=== PATIENT | female | born 1955 | race Caucasian/White ===

== ENCOUNTER → 2017-03-20 14:04 | Outpatient (CLI) | payer BC, SELFPAY ==
--- NOTE | 2017-03-20 14:14 | CT_ITS ---
STUDY: CT ABDOMEN AND PELVIS WITH AND WITHOUT CONTRAST REASON FOR EXAM: Female, 61 years old. Renal colic. Left flank pain. Hematuria. RADIATION DOSAGE (If Supplied By Facility): CTDIvol = ( 7.13 ) mGy, DLP = ( 788.06 ) mGycm TECHNIQUE: Transaxial images were obtained from the dome of the diaphragm to the symphysis pubis without oral contrast. 100 ml of Isovue 300 contrast was administered. Sagittal and coronal images were reconstructed. Individualized dose optimization techniques were used for this CT. COMPARISON: CT of the abdomen and pelvis, January 19, 2015. FINDINGS: The visualized lung bases are unremarkable. The visualized portions of the heart are within normal limits. Normal liver. There is non-visualization of the gallbladder, which may be secondary to either contraction or a prior cholecystectomy. Normal spleen. Normal pancreas. Normal bilateral adrenal glands. There is an extrarenal pelvis on the right. The right kidney is otherwise unremarkable. Normal left kidney. Normal bilateral ureters. Normal visualized stomach. Normal small intestine. Colon is mildly redundant but otherwise unremarkable. There is non-visualization of the appendix. Normal abdominal aorta. Normal inferior vena cava. Normal retroperitoneum. The urinary bladder is collapsed. Normal uterus and ovaries. There is no pelvic lymphadenopathy. There are prominent vessels in the broad ligament suggesting pelvic congestion. No free air or free fluid is seen within the peritoneal cavity. Normal abdominal wall. Normal osseous structures. CT/CT Abd/Pelvis W/WO Contrast IMPRESSION: 1. Question pelvic congestion. 2. No evidence of renal, ureteral or urinary bladder abnormality. Electronically Signed: Harshil Arzate DO at 15:09 EST Tel [phone], Service support ,
== END ==
PROVIDERS: Family Provider Internal Medicine; PCP Internal Medicine; Visit Provider Family Medicine
DX: N23 Unspecified renal colic (principal)
CPT/HCPCS: 74178; Q9967

== ENCOUNTER 2020-04-30 09:49 | Outpatient (RCR) | payer BC, SELFPAY ==
[2020-04-30] MEDS: COVID-19 VACC, MRNA(PFIZER)/PF 30 MCG/0.3 ML SYRINGE IM (15:06)
[2020-05-21] MEDS: COVID-19 VACC, MRNA(PFIZER)/PF 30 MCG/0.3 ML SYRINGE IM (14:44)
== END 2020-04-30 23:59 ==
LOC: IMMUN 09:49
PROVIDERS: PCP Family Medicine; Referring Provider Family Medicine; Visit Provider Family Medicine
DX: Z23 Encounter for immunization (principal)
CPT/HCPCS: 0001A; 0002A; 91300

== ENCOUNTER 2020-11-06 16:53 | Emergency (ER) | payer BC, SELFPAY ==
[2020-11-06 16:55] VITALS: BP 153/70; PULSE 75; RESP 17; TEMP 36.9; O2SAT 100
--- NOTE | 2020-11-06 17:26 | CT_ITS ---
STUDY: CT ABDOMEN AND PELVIS WITH CONTRAST REASON FOR EXAM: Female, 65 years old. Abdominal pain for 5 days, recent trauma to the periumbilical region RADIATION DOSAGE (If Supplied By Facility): CTDIvol = ( 11.26 ) mGy, DLP = ( 460.97 ) mGycm TECHNIQUE: CT images were obtained from the dome of the diaphragm to the symphysis pubis without oral contrast. IV 100mL Isovue-300 was administered. Sagittal and coronal images were reconstructed. Individualized dose optimization techniques were used for this CT. COMPARISON: 19 January 2015, 20 March 2017 FINDINGS: The visualized lung bases are unremarkable. The visualized portions of the heart are within normal limits. Normal liver. Gallbladder surgically removed. There is no biliary dilation.. Normal spleen. Normal pancreas. Normal bilateral adrenal glands. Normal right kidney. Normal left kidney. There is no intestinal obstruction. Appendix is resected. Normal abdominal aorta. Normal inferior vena cava. There is stable mild infiltration of the central intestinal mesentery, similar to 2015. 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 No further imaging is needed. Normal urinary bladder. There are enlarged veins bilaterally in the adnexa with early opacification. Appearance is uncommon in a postmenopausal patient, possibility of AV fistula is present. Normal abdominal wall. Normal osseous structures. Appearance is stable since prior. CT/Abdomen/Pelvis W IV Cont ONLY IMPRESSION: 1. No acute injury. 2. No acute disease. 3. 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 Electronically Signed: Chris Warner MD at 19:19 EDT Tel , Service support ,
--- NOTE | 2020-11-06 17:27 | ED.VIS.GI ---
HPI HPI - GI History of Present Illness Chief Complaint: Abd Pain Narrative Narrative: Patient presents from her primary care provider's office because of abdominal pain that she has had since Monday. She states that she was unloading some large concrete pavers, and one slid off the tailgate of a truck into her abdomen. She denies any nausea or vomiting. No fevers or chills. No dysuria or hematuria. No problems with bowel movements. She states that pain is worse with movement. Her abdomen feels swollen in the periumbilical area all across from where the plate driller hit her. She does not take any blood thinners, she does not take any medications whatsoever. She presents because of the continued pain. [facility] Home Medications NK 11/06/20 [History Last Taken Unknown] Allergy/AdvReac Type Severity Reaction Status Date / Time codeine AdvReac Other Verified 11/06/20 16:54 Social History Smoking Status: Never smoker ROS ROS ED ROS Narrative Constitutional: No fever, no chills. HEENT: No sore throat. No neck pain. No loss of vision. No rhinorrhea. Cardiovascular: No chest pain. No palpitations. No pedal edema. Respiratory: No cough, no shortness of breath. Abdominal: Positive periumbilical abdominal pain across abdomen. No nausea. No vomiting. Genitourinary: No dysuria. No hematuria. Musculoskeletal: No myalgias. No arthralgias. Neurologic: No headaches. No dizziness. No lightheadedness. Skin: No rash. No change in color. Psychiatric: No depression. No anxiety. EXAM Physical Exam Narrative Exam Narrative: Afebrile. Vital signs noted. HEENT: Normocephalic. Atraumatic. PERRL, EOMI. Neck soft and supple. No point tenderness or step off. Cardiovascular: Regular rate and rhythm. No murmurs, rubs, or gallops appreciated. Respiratory: No tachypnea. Lungs clear to auscultation bilaterally. Gastrointestinal: Abdomen soft, with mild tenderness to palpation at the level of T9 approximately, with normoactive bowel sounds. No rebound or guarding. Positive pain with movement and have to sit up. Neurological: Awake. Alert. Nonfocal, nonlateralizing. Skin: No rash. Normal color. No pallor. No noted ecchymosis on abdomen. Musculoskeletal: No pedal edema. Full range of motion extremities. Const Vital Signs: 11/06/20 16:55 Temperature 98.4 F Temperature Source Temporal Pulse Rate 75 Respiratory Rate 17 Blood Pressure 153/70 H Blood Pressure Mean 97 Pulse Ox 100 Oxygen Delivery Method Room Air MDM MDM MDM Narrative Medical decision making narrative: Patient denies any analgesics. I will obtain a CBC and a CMP to check her kidney function prior to obtaining an abdomen and pelvis CT with IV contrast to look for abdominal wall hematoma. Her laboratory work is grossly unremarkable, normal white count. Normal LFTs. CT of the abdomen and pelvis shows no acute process, no abdominal wall hematoma. At this point in time, treatment will be symptomatic with [id number] analgesics. I feel she be discharged safely home with follow-up. Return instructions to the emergency department were reviewed. Disposition is discharged home in stable condition. Lab Data Attestation: I reviewed the patient's lab results. Labs: Laboratory Results - last 24 hr 11/06/20 11/06/20 17:33 17:33 WBC 7.5 RBC 4.97 Hgb 14.7 Hct 46.0 MCV 92.6 MCH 29.6 MCHC 32.0 RDW Std Deviation 44.7 H RDW Coeff of Yesi 13.2 Plt Count 259 MPV 9.0 Immature Gran % (Auto) 0.300 Neut % (Auto) 64.2 Lymph % (Auto) 26.8 [place] % (Auto) 7.0 Eos % (Auto) 1.3 Baso % (Auto) 0.4 Absolute Neuts (auto) 4.8 Absolute Lymphs (auto) 2.02 Nucleated RBC % 0 Sodium 140 Potassium 3.6 Chloride 106 Carbon Dioxide 28.0 Anion Gap 6 BUN 16 Creatinine 0.97 Estim Creat Clear Calc 56.11 Est GFR (MDRD) Af Amer 75 Est GFR (MDRD) Non-Af 62 BUN/Creatinine Ratio 16.5 Glucose 106 Calcium 9.7 Total Bilirubin 0.30 AST 19 ALT 40 Alkaline Phosphatase 107 Total Protein 9.0 H Albumin 4.3 Globulin 4.7 H Albumin/Globulin Ratio 0.9 Radiography Diagnostic Testing: Radiology Impression Abdomen/Pelvis CT 11/06/20 17:26 IMPRESSION: 1. No acute injury. 2. No acute disease. 3. 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 Electronically Signed: Chris Warner MD at 19:19 EDT Tel , Service support , Discharge Plan Triage Chief Complaint: Abd Pain ED Provider: Krystian Solomon Dx/Rx/DC Orders Clinical Impression: Abdominal wall contusion Instructions: ED Soft Tissue Contusion, ED Abdominal Pain Unkn Cause Male... Prescriptions: No Action NK RF: 0 Primary Care Provider: Coy Sorto Referrals: Coy Sorto MD [Primary Care Provider] - 11/10/20 Disposition Disposition: Home, Self Care
[2020-11-06 17:46] LABS: Absolute Lymphocyte Count 2.02 X10^3/uL (0.83-4.51); Absolute Neutrophil Count 4.8 X10^3/uL (2.0-7.7); Basophil# 0.03 X10^3/uL; Basophil% 0.4 % (0-1); Eosinophils% 1.3 % (0-5); Hemoglobin 14.7 g/dL (12.0-15.0); Lymphocyte # 2.02 X10^3/ul (0.83-4.51); Lymphocyte % 26.8 % (19-41); Mean Corpuscular Hgb 29.6 pg (27.0-32.0); Mean Corpuscular Volume 92.6 fL (81-99); Monocyte# 0.53 X10^3/uL; NRBC Flagged by Analyzer 0 % (0-5); Neutrophil # 4.84 X10^3/uL (2.7-7.7); Neutrophil % 64.2 % (47-70); Platelet Count 259 K/mm3 (150-450); RBC Distribution Width CV 13.2 % (11.6-14.6); RBC Distribution Width SD 44.7 fl (35.1-43.9); Red Blood Count 4.97 M/mm3 (4.2-5.4); White Blood Count 7.5 K/mm3 (4.4-11.0)
[2020-11-06 18:14] LABS: Albumin, Serum 4.3 g/dL (3.2-5.0); BUN 16 mg/dL (7-18); BUN/Creat Ratio 16.5 RATIO (10-20); Creatinine, Serum 0.97 mg/dL (0.55-1.02); EST Glomerular Filtration Rate 62 mL/min (>60); Est Glom Filt Rate - Afr Amer 75 mL/min (>60); Estimated Creatinine Clearance 56.11 ml/min; Glucose 106 mg/dL (74-106)
[2020-11-06 18:15] LABS: ALB/GLOB Ratio 0.9 RATIO (0.9-2.4); AST(SGOT) 19 U/L (15-37); Alanine Aminotransfer ALT/SGPT 40 U/L (13-56); Alkaline Phosphatase 107 U/L (45-117); Anion Gap 6 (5-15); Calcium,Total 9.7 mg/dL (8.5-10.1); Chloride 106 mmol/L (98-107); Globulin 4.7 g/dL (2.2-4.2); Potassium 3.6 mmol/L (3.5-5.1); Sodium Level 140 mmol/L (136-145)
[2020-11-06 20:09] VITALS: BP 140/68; PULSE 71; RESP 18; O2SAT 99
--- NOTE | 2020-11-06 20:09 | ED.RN ---
THIS NURSE REVIEWED D/C INSTRUCTIONS WITH PT. PT VERBALIZED UNDERSTANDING OF INSTRUCTIONS. IV D/C. IV CATHETER INTACT. PT TOLERATED WELL. PT DENIES FURTHER NEEDS OR QUESTIONS AT THIS TIME. PT AMBULATES FROM ROOM ON OWN WITHOUT ASSISTANCE FROM STAFF
== END 2020-11-06 20:15 | disposition home or self-care (01) ==
PROVIDERS: Emergency Provider Emergency Medicine; PCP Family Medicine
DX: S30.1XXA Contusion of abdominal wall, initial encounter (principal); W20.8XXA Other cause of strike by thrown, projected or falling object, initial encounter; Y93.9 Activity, unspecified; Y92.9 Unspecified place or not applicable; Y99.9 Unspecified external cause status
CPT/HCPCS: 74177; 80053; 85025; 99283; Q9967; A4216

== ENCOUNTER → 2020-12-28 11:04 | Outpatient (CLI) | payer BC, SELFPAY ==
--- NOTE | 2020-12-28 11:08 | US_ITS ---
STUDY: ULTRASOUND OF THE FEMALE PELVIS - COMPLETE REASON FOR EXAM: Female, 65 years old. PELVIC CONGESTION LMP: Patient is postmenopausal. TECHNIQUE: Transabdominal and Transvaginal TECHNICAL QUALITY: Adequate. COMPARISON: Comparison is made with prior CT scan of the abdomen and pelvis dated 11/06/2020. FINDINGS: The uterus is anteverted and is in a midline position. The uterus measures 4.8 cm x 4.1 cm x 1.8 cm. Normal uterine cervix. The endometrium measures 2 mm in thickness, and is hyperechoic. There is no demonstrated endometrial mass. There is no demonstrated myometrial mass. I.U.D. - The patient does not have an I.U.D. The right ovary is non-visualized. The left ovary is non-visualized. There is no fluid in the cul-de-sac. The pre void volume of the bladder was 328 ml. Dilated venous vessels are seen in the pelvis more prominent on the left side. US/Pelvic (Non ) IMPRESSION: Dilated venous vessels are seen in the pelvis more prominent on the left side. Electronically Signed: Jaspreet Cordero MD at 13:02 EST , Service support ,
--- NOTE | 2020-12-28 11:09 | US_ITS ---
STUDY: ULTRASOUND OF THE FEMALE PELVIS - COMPLETE REASON FOR EXAM: Female, 65 years old. PELVIC CONGESTION LMP: Patient is postmenopausal. TECHNIQUE: Transabdominal and Transvaginal TECHNICAL QUALITY: Adequate. COMPARISON: Comparison is made with prior CT scan of the abdomen and pelvis dated 11/06/2020. FINDINGS: The uterus is anteverted and is in a midline position. The uterus measures 4.8 cm x 4.1 cm x 1.8 cm. Normal uterine cervix. The endometrium measures 2 mm in thickness, and is hyperechoic. There is no demonstrated endometrial mass. There is no demonstrated myometrial mass. I.U.D. - The patient does not have an I.U.D. The right ovary is non-visualized. The left ovary is non-visualized. There is no fluid in the cul-de-sac. The pre void volume of the bladder was 328 ml. Dilated venous vessels are seen in the pelvis more prominent on the left side. US/Transvaginal Non- IMPRESSION: Dilated venous vessels are seen in the pelvis more prominent on the left side. Electronically Signed: Jaspreet Cordero MD at 13:02 EST , Service support ,
== END ==
PROVIDERS: PCP Family Medicine; Referring Provider Family Medicine; Visit Provider Family Medicine
DX: N94.89 Other specified conditions associated with female genital organs and menstrual cycle (principal); I99.9 Unspecified disorder of circulatory system
CPT/HCPCS: 76830; 76856

== ENCOUNTER 2021-04-07 13:06 | Outpatient (CLI) | payer BC, SELFPAY ==
--- NOTE | 2021-04-07 13:08 | BI_ITS ---
MAMMOGRAPHY - BILATERAL SCREENING REASON FOR EXAM: Female, 66 years old. Routine annual screening examination. PERTINENT HISTORY: Non-contributory. TECHNIQUE: Digital bilateral breast patel (3D mammographic acquisition) in the CC and MLO projections. 2-D mediolateral oblique (MLO) and craniocaudad (CC) views of both breasts were obtained. CAD: Full Field Digital Mammography with Computer Added Detection was performed. COMPARISON: Comparison is made with prior abdomen examination dated 04/12/2019. FINDINGS: Breast Composition: There are scattered areas of fibroglandular density. There are no dominant masses or suspicious calcifications. Stable 6 mm x 4 mm well-defined nodule in the inferior medial portion of the left breast. No other significant abnormalities are identified. There has been no significant change since the prior study. BI/SCRN MAMM (CAD)W/PATEL BILAT IMPRESSION: Stable bilateral screening mammogram. Yearly follow-up mammogram recommended. (A) ASSESSMENT CATEGORY: BIRADS Category 2: Benign. A letter regarding these results will be sent to the patient by the facility within 30 days. Approximately 10% of breast cancers are not detected by mammography. A normal mammogram should not delay biopsy of a clinically suspicious abnormality. [id number] Electronically Signed: Jaspreet Cordero MD at 14:33 EST ,
== END 2021-04-07 23:59 | disposition home or self-care (01) ==
LOC: OPBI 13:06
PROVIDERS: PCP Family Medicine; Referring Provider Family Medicine; Visit Provider Family Medicine
DX: Z12.31 Encounter for screening mammogram for malignant neoplasm of breast (principal)
CPT/HCPCS: 77063; 77067

== ENCOUNTER 2021-05-17 13:02 | Outpatient (CLI) | payer BC, SELFPAY ==
--- NOTE | 2021-05-17 13:05 | US_ITS ---
HISTORY: pelvic varices EXAMINATION: US Transvaginal Non-OB TECHNIQUE: Transvaginal pelvic ultrasound was performed. Grayscale, spectral waveform, and color flow Doppler evaluation of the adnexa. COMPARISON: CT abdomen and pelvis 11/06/20 FINDINGS: UTERUS: anteverted. The uterus measures 5.6 x 4.1 x 2.0 cm. There is no uterine mass. The endometrial stripe measures 3 mm in AP diameter which is within normal limits. RIGHT OVARY: Not visualized. LEFT OVARY: Not visualized. FREE FLUID: None. US/Transvaginal Non- IMPRESSION: Unremarkable pelvic ultrasound. No demonstration of increased pelvic vascularity. at 1555 Reported and signed by: Tj Dickerson MD Electronically Signed: Tj Dickerson MD at 15:53 EDT ,
--- NOTE | 2021-05-17 13:05 | US_ITS ---
HISTORY: pelvic varices EXAMINATION: US Transvaginal Non-OB TECHNIQUE: Transvaginal pelvic ultrasound was performed. Grayscale, spectral waveform, and color flow Doppler evaluation of the adnexa. COMPARISON: CT abdomen and pelvis 11/06/20 FINDINGS: UTERUS: anteverted. The uterus measures 5.6 x 4.1 x 2.0 cm. There is no uterine mass. The endometrial stripe measures 3 mm in AP diameter which is within normal limits. RIGHT OVARY: Not visualized. LEFT OVARY: Not visualized. FREE FLUID: None. US/Pelvic (Non ) IMPRESSION: Unremarkable pelvic ultrasound. No demonstration of increased pelvic vascularity. at 1555 Reported and signed by: Tj Dickerson MD Electronically Signed: Tj Dickerson MD at 15:53 EDT ,
== END 2021-05-17 23:59 | disposition home or self-care (01) ==
LOC: US 13:03
PROVIDERS: PCP Family Medicine; Referring Provider Obstetrics & Gynecology; Visit Provider Obstetrics & Gynecology
DX: I86.2 Pelvic varices (principal)
CPT/HCPCS: 76830; 76856

== ENCOUNTER 2021-05-17 23:12 | Emergency (ER) | payer BC, SELFPAY ==
[2021-05-17 23:13] VITALS: BP 179/89; PULSE 101; RESP 20; TEMP 35.9; O2SAT 96; BMI 21.6
--- NOTE | 2021-05-17 23:35 | EKG12_ITS ---
Test Reason : DIZZINESS Blood Pressure : / mmHG Vent. Rate : 098 BPM Atrial Rate : 098 BPM P-R Int : 094 ms QRS Dur : 080 ms QT Int : 358 ms P-R-T Axes : 062 012 041 degrees QTc Int : 457 ms Sinus rhythm with short PA Otherwise normal ECG Confirmed by FATUMA MUÑOZ, ANAID ([id number]), communications editor CORAL SAUCEDA ([id number]) on 05/18/2021 10:41:21 AM Referred By: ALEJANDRO Confirmed By:ANAID BURRIS MD
--- NOTE | 2021-05-17 23:38 | EX.ED.DYSGE1 ---
HPI History of Present Illness Chief Complaint: Dizziness Informant: patient Onset/Context/Timing Onset: Today Context: Sudden Onset Current Severity: Moderate Maximum Severity: Moderate Narrative Narrative: Patient presents via EMS secondary to feeling weak and dizzy. She states she was lying on the couch when she developed racing heart and nausea. She felt very dizzy. She was able to walk to her bedroom to lie down but when moving from the seated to lying position became quite dizzy. She states she had racing heart sensation last evening for short time but it resolved. Symptoms recurred today. She has a mild left-sided headache. She denies medical problems or any chronic medications. PFSH PFSH Medical History no medical history no medical history Home Medications albuterol sulfate 2 puff INHALATION Q4H PRN 05/17/21 [History Last Taken Unknown] meclizine [Antivert] 25 mg PO TID PRN #20 tab 05/18/21 [Rx Last Taken Unknown] potassium chloride 20 meq PO BID #8 tab 05/18/21 [Rx Last Taken Unknown] Allergy/AdvReac Type Severity Reaction Status Date / Time codeine AdvReac Other Verified 05/17/21 23:18 Family History Father CVA (cerebral vascular accident) Diabetes Hypertension Surgical History H/O lithotripsy History of appendectomy History of hand surgery Hx of cholecystectomy Social History Smoking Status: Never smoker alcohol intake: current details: social substance use type: does not use caffeine: Yes what type of physical activity do you participate in: walking seatbelt use: always do you feel safe at home: Yes additional social history: - [place] ([place]) ROS ROS ED Constitutional Constitutional ED: Denies chills or fever(s) Eyes Eyes: Denies change in vision ENT ENT ED: Denies rhinorrhea or sore throat Cardiovascular Cardiovascular: Reports racing heartbeat Respiratory/Chest Respiratory/Chest: Denies dyspnea Gastrointestinal Gastrointestinal: Reports nausea; Denies abdominal pain or diarrhea Musculoskeletal Musculoskeletal: Denies back pain or neck pain Neurologic Neurologic: Reports headache(s) and weakness Allergic/Immunologic Allergic/Immunologic ED: Denies urticaria EXAM Physical Exam Const Vital Signs: 05/17/21 23:13 05/18/21 00:13 05/18/21 01:13 Temperature 96.6 F L Temperature Source Temporal Pulse Rate 101 H 107 H 101 H Respiratory Rate 20 H 24 H 18 Blood Pressure 179/89 H 125/65 H 114/68 Blood Pressure Mean 119 85 83 Pulse Ox 96 98 Oxygen Delivery Method Room Air Room Air 05/18/21 02:13 Temperature Temperature Source Pulse Rate 94 Respiratory Rate 18 Blood Pressure 125/71 H Blood Pressure Mean 89 Pulse Ox 97 Oxygen Delivery Method Room Air Positive well nourished and well developed General Appearance ED: well developed HEENT Reports TM's clear and moist mucous membranes Tympanic Membrane ED: Yes TM's clear Eyes PERRL Neck supple Chest Wall inspection of chest normal and palpation of chest normal Resp normal respiratory effort and clear to auscultation bilaterally Cardio regular rate and regular rhythm GI non-tender Auscultation: hypoactive bowel sounds Palpation: soft Extremity normal to inspection Neuro oriented x3 Neuro Narrative: Resting in a darkened room with eyes closed. States she feels weak all over. Is able to hold both arms up off the bed. Able to hold both legs off the bed. Sensorium / Orientation: alert Psych mental status grossly normal Skin no rashes or lesions noted MDM MDM MDM Narrative Medical decision making narrative: Patient was initially given Zofran followed by dose of Phenergan for continued nausea. She was sent for head CT to rule out bleed. Lab work obtained. EKG ordered. Lab Data Attestation: I reviewed the patient's lab results. Labs: Laboratory Results - last 24 hr 05/18/21 05/18/21 00:01 00:01 WBC 10.6 RBC 4.44 Hgb 13.7 Hct 40.4 MCV 91.0 MCH 30.9 MCHC 33.9 RDW Std Deviation 42.5 RDW Coeff of Yesi 12.9 Plt Count 278 MPV 9.7 Immature Gran % (Auto) 0.900 Neut % (Auto) 53.1 Lymph % (Auto) 38.5 [place] % (Auto) 5.8 Eos % (Auto) 1.1 Baso % (Auto) 0.6 Absolute Neuts (auto) 5.6 Absolute Lymphs (auto) 4.10 Nucleated RBC % 0 Sodium 141 Potassium 2.9 L Chloride 106 Carbon Dioxide 25.0 Anion Gap 10 BUN 15 Creatinine 1.07 H Estim Creat Clear Calc 53.58 Est GFR (MDRD) Af Amer 66 Est GFR (MDRD) Non-Af 55 L BUN/Creatinine Ratio 14.0 Glucose 154 H Calcium 9.2 Total Bilirubin 0.20 Direct Bilirubin 0.09 AST 36 ALT 64 H Alkaline Phosphatase 102 Troponin I High Sens < 3 L Total Protein 7.8 Albumin 4.0 Globulin 3.8 Radiography Diagnostic Testing: Clinical Impression(s) from Imaging Studies Brain CT 05/18/21 23:35 IMPRESSION: Normal unenhanced CT scan of the brain. Electronically Signed: Rusty Mcclainhelen at 0:35 EDT , EKG Initial EKG: Attestation: I personally reviewed and interpreted this EKG as follows: Interpretation: Sinus Rhythm (Sinus at 98 with no acute ischemia.) Treatment and Re-Evaluation Narrative: Head CT shows no evidence of bleed. Lab work significant for potassium low at 2.9. On repeat evaluation patient reported nausea was significantly improved. When she went from the lying to sitting position she felt like she started to have some spinning again. She is given a dose of p.o. Antivert. At this time patient reports significant improvement. She is able to get up and walk to the bathroom and back. She is able to turn her head to look at different people during conversation without difficulty. She will be given oral potassium replacement here. Prescriptions for Antivert and potassium will be given. Family will be with her tonight. Return instructions provided. Discharge Plan Triage Chief Complaint: Dizziness Other Complaint: Weakness ED Provider: Arcelia Kinsey Dx/Rx/DC Orders Clinical Impression: Vertigo, Hypokalemia Instructions: ED BPV Vertigo, ED Hypokalemia Prescriptions: New meclizine [Antivert] 25 mg tablet,chewable 25 mg PO TID PRN (Reason: dizziness) Qty: 20 RF: 0 potassium chloride 20 mEq tablet extended release 20 meq PO BID Qty: 8 RF: 0 No Action albuterol sulfate 90 mcg/actuation Hfa Aerosol Inhaler 2 puff INHALATION Q4H PRN (Reason: sob) RF: 0 Primary Care Provider: Kesha Phillips Referrals: Kesha Phillips MD [Primary Care Provider] - 5-7 Days Disposition Disposition: Home, Self Care
[2021-05-17] MEDS: Ondansetron 4 MG/2 ML Vial IV (23:40)
[2021-05-17] MEDS: proMETHazine 25 MG/ML Syringe IM (23:59)
[2021-05-18] MEDS: 0.9% Normal Saline 1,000 ML 150 ML IV (00:06)
[2021-05-18 00:11] LABS: Absolute Neutrophil Count 5.6 X10^3/uL (2.0-7.7); Basophil# 0.06 X10^3/uL; Basophil% 0.6 % (0-1); Eosinophil# 0.12 X10^3/uL; Eosinophils% 1.1 % (0-5); Hematocrit 40.4 % (37-47); Hemoglobin 13.7 g/dL (12.0-15.0); Lymphocyte % 38.5 % (19-41); Mean Corp Hgb Conc 33.9 g/dL (32-36); Mean Corpuscular Hgb 30.9 pg (27.0-32.0); Mean Platelet Vol. 9.7 fl (6.2-12.0); Monocyte# 0.62 X10^3/uL; Monocyte% 5.8 % (0-10); NRBC Flagged by Analyzer 0 % (0-5); Neutrophil # 5.64 X10^3/uL (2.7-7.7); Neutrophil % 53.1 % (47-70); Platelet Count 278 K/mm3 (150-450); RBC Distribution Width CV 12.9 % (11.6-14.6); RBC Distribution Width SD 42.5 fl (35.1-43.9); Red Blood Count 4.44 M/mm3 (4.2-5.4); White Blood Count 10.6 K/mm3 (4.4-11.0)
[2021-05-18 00:13] VITALS: BP 125/65; PULSE 107; RESP 24
[2021-05-18 00:37] LABS: AST(SGOT) 36 U/L (15-37); Alanine Aminotransfer ALT/SGPT 64 U/L (13-56); Alkaline Phosphatase 102 U/L (45-117); Anion Gap 10 (5-15); BUN 15 mg/dL (7-18); Bilirubin, Direct 0.09 mg/dL (0.00-0.30); Calcium,Total 9.2 mg/dL (8.5-10.1); Chloride 106 mmol/L (98-107); Creatinine, Serum 1.07 mg/dL (0.55-1.02); EST Glomerular Filtration Rate 55 mL/min (>60); Est Glom Filt Rate - Afr Amer 66 mL/min (>60); Estimated Creatinine Clearance 53.58 ml/min; Globulin 3.8 g/dL (2.2-4.2); Glucose 154 mg/dL (74-106); Potassium 2.9 mmol/L (3.5-5.1); Protein, Total 7.8 g/dL (6.4-8.2); Sodium Level 141 mmol/L (136-145); Troponin-I HS < 3 pg/mL (3.0-54.0)
[2021-05-18 01:13] VITALS: BP 114/68; PULSE 101; RESP 18; O2SAT 98
[2021-05-18] MEDS: Meclizine HCl 25 MG Tablet PO (01:49)
[2021-05-18 02:13] VITALS: BP 125/71; PULSE 94; RESP 18; O2SAT 97
[2021-05-18 03:03] VITALS: PULSE 76; RESP 17; O2SAT 97
[2021-05-18] MEDS: Potassium Chloride Oral Tablet 20 MEQ 40 MEQ PO (03:08)
--- NOTE | 2021-05-18 23:35 | CT_ITS ---
STUDY: CT BRAIN WITHOUT CONTRAST REASON FOR EXAM: Female, 66 years old. vertigo RADIATION DOSAGE (If Supplied By Facility): CTDIvol = ( 44.99 ) mGy, DLP = ( 846.73 ) mGycm TECHNIQUE: Transaxial CT imaging of the brain was performed without administration of intravenous contrast material. Individualized dose optimization techniques were used for this CT. COMPARISON: No relevant priors. FINDINGS: Normal soft tissue structures. Normal calvarium. Normal size ventricles and extra-axial spaces for the patient''s age. Normal white matter tracts of the cerebral hemispheres. Normal basal ganglia and thalami. Normal brainstem. Normal cerebellum. There is no intracranial hemorrhage. There are no findings of an acute ischemic infarction. Normal visualized paranasal sinuses. CT/Brain/Head without Contrast IMPRESSION: Normal unenhanced CT scan of the brain. Electronically Signed: Rusty Carranza DO at 0:35 EDT ,
== END 2021-05-18 03:12 | disposition home or self-care (01) ==
PROVIDERS: Emergency Provider Emergency Medicine; PCP Family Medicine; Visit Provider Emergency Medicine
DX: R42 Dizziness and giddiness (principal); E87.6 Hypokalemia; R53.1 Weakness; R51.9 Headache, unspecified; Z79.899 Other long term (current) drug therapy
CPT/HCPCS: 70450; 80048; 80076; 84484; 85025; 93005; 96361; 96372; 96374; 99285; J7030; A4216; J2405

== ENCOUNTER 2021-07-01 13:30 | Outpatient (RCR) | payer BC, SELFPAY ==
--- NOTE | 2021-06-03 12:24 | HP.PTEVAL_ITS ---
Patient's Visit Information DEREK TARANGO is a 66 year old F referred to Physical Therapy by Dr. Kesha Phillips MD with a diagnosis of vertigo. Date of Evaluation: 06/03/21 Physical Therapist: Sebastien Pepper, VILMAT, OCS, CSCS - Visit Plan Frequency: 2x /Week Duration: 2-4 Weeks Plan: 2x/week for 2-4 weeks... 1. STM parspoinals neck, manual neck PROM, stretching UT and scalenes and progress to HEP. 2. strength to neck when feeling better and full motion. 3. progress head movement ex(doing head nods and turn today)...will need to progress to walking head turns and VOR when safety allows. - Subjective 2 weeks ago had a bad case of vertigo which took her to the ER. Neck has been stiff lately. has also had humming in ear R for 6 yrs since a fall. This vertigo started while watching TV sitting on couch and turned head a certain di rection can make ringing in ear stop. turned head quickly and heard snap in neck and room started spinning. It lasted long time and she vomiited as room spun when she laid in bed. Called squad and taken to ER. Gave vomitting meds and catscan. Scan was clear. IV and dizzy meds. Went home feeling better but slightly off balance. No more spinning but if moves head too fast will get on the verge. Feels off balance a little since then. No falls. OK lying in bed on side. Slow bending and looking up can make neck uncomfortable and slightly imbalanced. Retired. Sleep OK. Walks alot wth friend but has not been doing that. - Objective Walks into PT I, /transfers I, steps I. Cervical AROM. 25 extension stiff, 45 rotation L stiff and 55 R stiff. UE AROM WFL but R arm elevation painful due to shoulder problem. strength UE symmetrical and painfree except R flexion. reflexes 1/3 bi and tri B. Sensation UE WNL to gross light touch. - B hallpike kathy, - roll test. oculomotor: no nystagmus with gaze or head shake. - skew eye deviation. - ocular tilt. - head thrust. saccades adn pursuit are normal. VOR casuses slight dizzyness and hesitant to move head alot. - c/s compression test. Tender to palpation in neck subocc and UT and paraspinals mildly - Balance/Special Test Scores Functional Gait Assessment Score: 27 % Disability: 10.0000 Dizziness Score: 24 - Goals Goal 1:: Trun head without hesitation full ROM Goal Time Frame: 2-4 Weeks Goal 2:: Pt score 29/30 on FGA Goal Time Frame: 2-4 Weeks Goal 3:: Pt feel 90% back to normal in neck and dizzy feeling Goal Time Frame: 2-4 Weeks Goal 4:: Walk and garden without symptoms. Goal Time Frame: 2-4 Weeks Goal 5:: <8 DHI score Goal Time Frame: 2-4 Weeks - Rehabilitation Potential Physical Therapy Diagnosis: possible vestibular hypofunction with hesitancy to move head. Rehabilitation Potential: Fair - Anticipated Interventions Patient/Client Instruction: Educate patient on: Condition, Plan of Care For the Purpose of:: To decrease pain, To increase ROM, To improve muscle performance and motor function, To increase tolerance to activity/condition/position, To improve ability of physical actions for home/community/work/leisure Therapeutic Exercise to Include: Strength training, Postural training, Flexibilty training Comment: vestibular ex For the Purpose of:: To decrease pain, To increase ROM, To improve muscle performance and motor function, To increase tolerance to activity/condition/position, To improve ability of physical actions for home/community/work/leisure, To improve gait and locomotor functions, To improve safety Thank you for the opportunity to evaluate your patient. For Medicare and Medicare HMO plans, please review the plan of care and approve it. It will need to be FAXED BACK to us at [phone] for Medicare purposes. For Medicare only, by signing this I certify the plan of care. Please let me know if there are questions or concerns regarding this plan of care. Physician Signature: Date:
--- NOTE | 2021-08-26 16:34 | HP.PT.NRP ---
DEREK TARANGO was seen in my office for initial evaluation on 06/03/21. The following Plan of Care was established for this patient: Initial Frequency: 2x /Week Initial Duration: 2-4 Weeks Patient/Client Instruction: Educate patient on: Condition, Plan of Care For the Purpose of:: To decrease pain, To increase ROM, To improve muscle performance and motor function, To increase tolerance to activity/condition/position, To improve ability of physical actions for home/community/work/leisure Therapeutic Exercise to Include: Strength training, Postural training, Flexibilty training For the Purpose of:: To decrease pain, To increase ROM, To improve muscle performance and motor function, To increase tolerance to activity/condition/position, To improve ability of physical actions for home/community/work/leisure, To improve gait and locomotor functions, To improve safety This patient was last seen in our office 07/01/21. Pertinent comments regarding their Physical therapy will appear below: Pt seen 8 visits of POC and was at least 60% improved. she cancelled her last couple visits and did not reschedule. At this point, it has been over 7 weeks and I will discontinue due to nonattendance. At this point I will be discontinuing this patient from physical therapy. I would be happy to see this patient again in the future if found appropriate by the physician. Thank you! Sebastien Pepper, DPT, OCS, CSCS Balance/Gait/Functional tests - Balance/Special Test Scores Functional Gait Assessment Score: 29 % Disability: 3.3400 Dizziness Score: 6
== END 2021-07-01 19:00 | disposition home or self-care (01) ==
LOC: PT 13:30
PROVIDERS: PCP Family Medicine; Referring Provider Family Medicine; Visit Provider Family Medicine
DX: R42 Dizziness and giddiness (principal)
CPT/HCPCS: 97012; 97110; 97140; 97162; 97530

== ENCOUNTER → 2021-09-21 | Outpatient (CLI) | payer BC, SELFPAY ==
--- NOTE | 2021-09-21 06:47 | ECHOD_ITS ---
Reason For Study: DYSPNEA Procedure This was a 2D Doppler, Color Flow transthoracic echocardiogram. The exam was of adequate technical quality. Exam performed in department. Left Ventricle Normal LV size. Left ventricular systolic function is normal. The estimated ejection fraction is 60 %. No evidence for diastolic dysfunction. No regional wall motion abnormalities noted. Right Ventricle Normal RV size. Normal systolic function. Atria The left atrium is mildly enlarged. Normal right atrium. No doppler evidence for ASD. Mitral Valve There is no mitral annular calcification. Moderate (2+) eccentric mitral valve insufficiency. Tricuspid Valve Normal tricuspid valve. Mild to moderate (1-2+) tricuspid valve insufficiency. Unable to estimate RV systolic pressure due to insufficient tricuspid regurgitant envelope. Aortic Valve Trisinus/trileaflet aortic valve. Mild diffuse aortic valve thickening. Trivial aortic valve insufficiency. Pulmonic Valve The pulmonic valve is not well visualized. Trivial pulmonic valve insufficiency. Great Vessels Normal sized aortic root. Pericardium/Pleural Trivial pericardial effusion. There are no echocardiographic indications of cardiac tamponade. MMode/2D Measurements & Calculations LVIDd: 4.4 cm IVSd: 0.94 cm Ao root diam: 2.9 cm LVIDs: 3.1 cm LVPWd: 0.97 cm RVDd: 2.6 cm FS: 28.5 % LAV(MOD-bp): 55.1 ml LVAd ap4: 23.2 cm2 SV(MOD-sp4): 32.8 ml LAV(MOD-bp) Indexed: 31.6 ml/m2 LVLd ap4: 6.9 cm LAV(MOD-sp2): 50.5 ml EDV(MOD-sp4): 61.6 ml LAV(MOD-sp4): 59.0 ml EDV(sp4-el): 66.1 ml LVAs ap4: 14.2 cm2 LVLs ap4: 5.8 cm ESV(MOD-sp4): 28.7 ml ESV(sp4-el): 29.7 ml EF(MOD-sp4): 53.3 % EF(sp4-el): 55.1 % SV(sp4-el): 36.4 ml LA A4 area: 20.5 cm2 LA dimension(2D): 3.9 cm RA A4 area: 14.2 cm2 Time Measurements MV dec time: 0.16 sec Doppler Measurements & Calculations MV E max carlos: 80.3 cm/sec Lat Peak E' Carlos: 6.6 cm/sec Med Peak E' Carlos: 8.1 cm/sec MV A max carlos: 96.3 cm/sec E/E' lat: 12.1 E/E' med: 9.9 MV E/A: 0.83 MV V2 max: 85.1 cm/sec AI max carlos: 387.8 cm/sec MV max P.9 mmHg MV dec slope: 503.9 cm/sec2 AI max P.2 mmHg MV V2 mean: 57.2 cm/sec MV mean P.5 mmHg AI dec slope: 189.1 cm/sec2 MV V2 VTI: 32.0 cm AI P1/2t: 600.6 msec LV V1 max: 90.1 cm/sec PA V2 max: 81.8 cm/sec LV V1 max P.2 mmHg LV V1 mean P.8 mmHg LV V1 mean: 63.3 cm/sec LV V1 VTI: 21.8 cm ECHO/Echo Complete Interpretation Summary Left ventricular systolic function is normal. The estimated ejection fraction is 60 %. The left atrium is mildly enlarged. Moderate (2+) eccentric mitral valve insufficiency. Mild to moderate (1-2+) tricuspid valve insufficiency. Mild diffuse aortic valve thickening. Trivial aortic valve insufficiency. Trivial pulmonic valve insufficiency. Trivial pericardial effusion. There are no echocardiographic indications of cardiac tamponade. Unable to estimate RV systolic pressure due to insufficient tricuspid regurgita nt envelope. No evidence for diastolic dysfunction. Ordering Physician: Kam Benavides Referring Physician: Kam Benavides Performed By: Elba Xiong RCS
--- NOTE | 2021-09-21 08:46 | STRESSREP ---
Stress Test Report Date: 09-21-2021 Procedure: Exercise tolerance test/imaging study Indications: Shortness of breath/dyspnea on exertion; palpitations Consent: Per the patient Procedure: The patient exercised on a Allan protocol for 6 minutes and 15 seconds completing Stage II and 15 seconds of Stage III achieving a peak heart rate of 146 bpm (93% predicted maximal heart rate) with a peak blood pressure 200/64 mmHg and a peak MET capacity of 7 METs. The baseline ECG demonstrated normal sinus rhythm. The peak exercise ECG demonstrated somatic/motion artifact with no obvious ECG changes. There was a rare PVC during recovery. The functional capacity was considered average. There was no complaint of chest discomfort during exercise or recovery. The examination was discontinued secondary to feels heart working . Impression: 1. Technically adequate (percent predicted maximal heart rate greater than 85%) exercise tolerance test 2. Peak exercise ECG no obvious ECG change 3. There was a rare PVC during recovery 4. Nuclear images pending Myocardial perfusion imaging study: Technique: The patient was injected with 11.1 mCi of technetium 99m Cardiolite and subsequently rest SPECT Cardiolite nuclear imaging was obtained in the horizontal long, vertical long, and short axis views. The patient exercised on a Allan protocol for 6 minutes and 15 seconds completing Stage II and 15 seconds of Stage III achieving a peak heart rate of 146 bpm (93% predicted maximal heart rate) with a peak blood pressure 200/64 mmHg and a peak MET capacity of 7 METs. The patient was injected with 33.3 mCi of technetium 99m Cardiolite and subsequently stress SPECT Cardiolite nuclear imaging was obtained in the horizontal long, vertical long, and short axis views. A gated Cardiolite study at peak stress was obtained. Interpretation: Rest and stress SPECT Cardiolite nuclear imaging status post realignment, normalization, and attenuation correction, demonstrates the appearance of relative uniform tracer uptake and myocardial perfusion appearing within normal limits. There is end systolic thickening and brightening. The gated Cardiolite study demonstrates myocardial thickening and inward wall motion. The reported LVEF is 75%. Impression: 1. Rest and stress SPECT Cardiolite nuclear imaging demonstrate relative uniform tracer uptake and myocardial perfusion appearing within normal limits. 2. The gated Cardiolite study reports an LVEF of 75%. This note was generated with [email or web address] software. It may contain incorrect words, spelling, and punctuation that were not noted in checking the note before signing.
== END | disposition home or self-care (01) ==
PROVIDERS: PCP Family Medicine; Referring Provider Internal Medicine Cardiovascular Disease; Visit Provider Internal Medicine Cardiovascular Disease
DX: R00.2 Palpitations (principal); R42 Dizziness and giddiness; R06.09 Other forms of dyspnea
CPT/HCPCS: 78452; 93017; 93306; A9500; A4216

== ENCOUNTER → 2022-01-21 | Outpatient (CLI) | payer BC, SELFPAY ==
[2022-01-21 11:09] LABS: Absolute Lymphocyte Count 1.63 X10^3/uL (0.83-4.51); Absolute Neutrophil Count 3.7 X10^3/uL (2.0-7.7); Basophil# 0.02 X10^3/uL; Basophil% 0.3 % (0-1); Eosinophil# 0.14 X10^3/uL; Eosinophils% 2.3 % (0-5); Hematocrit 42.1 % (37-47); Hemoglobin 13.3 g/dL (12.0-15.0); Lymphocyte # 1.63 X10^3/ul (0.83-4.51); Mean Corp Hgb Conc 31.6 g/dL (32-36); Mean Corpuscular Hgb 29.7 pg (27.0-32.0); Mean Platelet Vol. 9.7 fl (6.2-12.0); Monocyte# 0.51 X10^3/uL; Monocyte% 8.4 % (0-10); NRBC Flagged by Analyzer 0 % (0-5); Neutrophil # 3.73 X10^3/uL (2.7-7.7); Neutrophil % 61.8 % (47-70); Platelet Count 248 K/mm3 (150-450); RBC Distribution Width CV 13.1 % (11.6-14.6); RBC Distribution Width SD 44.9 fl (35.1-43.9); Red Blood Count 4.48 M/mm3 (4.2-5.4)
[2022-01-21 11:45] LABS: Anion Gap 3 (5-15); BUN 24 mg/dL (7-18); BUN/Creat Ratio 28.6 RATIO (10-20); Calcium,Total 9.6 mg/dL (8.5-10.1); Chloride 108 mmol/L (98-107); Creatinine, Serum 0.84 mg/dL (0.55-1.02); EST Glomerular Filtration Rate 73 mL/min (>60); Est Glom Filt Rate - Afr Amer 88 mL/min (>60); Glucose 94 mg/dL (74-106); Magnesium 2.6 mg/dL (1.6-2.6); Sodium Level 141 mmol/L (136-145)
== END | disposition home or self-care (01) ==
PROVIDERS: PCP Family Medicine; Referring Provider Physician Assistant Medical; Visit Provider Physician Assistant Medical
DX: R00.2 Palpitations (principal); R42 Dizziness and giddiness; I34.0 Nonrheumatic mitral (valve) insufficiency; I07.1 Rheumatic tricuspid insufficiency
CPT/HCPCS: 36415; 80048; 83735; 84443; 85025; 93225; 93226

== ENCOUNTER → 2022-05-12 | Outpatient (CLI) | payer MEDICARE, BC, SELFPAY ==
--- NOTE | 2022-05-12 13:16 | BI_ITS ---
MAMMOGRAPHY - BILATERAL SCREENING REASON FOR EXAM: Female, 67 years old. Routine annual screening examination. PERTINENT HISTORY: Non-contributory. TECHNIQUE: Digital bilateral breast patel (3D mammographic acquisition) in the CC and MLO projections. 2-D mediolateral oblique (MLO) and craniocaudad (CC) views of both breasts were obtained. CAD: Full Field Digital Mammography with Computer Added Detection was performed. COMPARISON: Comparison is made with prior study dated April 07, 2021 and August 31, 2015. FINDINGS: Breast Composition: There are scattered areas of fibroglandular density. There are no dominant masses or suspicious calcifications. Stable 6 mm x 4 mm well-defined nodule in the inferior medial portion of No other significant abnormalities are identified. There has been no significant change since the prior study. BI/SCRN MAMM (CAD)W/PATEL BILAT IMPRESSION: Stable bilateral screening mammogram. Yearly follow-up mammogram recommended. (A) ASSESSMENT CATEGORY: BIRADS Category 2: Benign. A letter regarding these results will be sent to the patient by the facility within 30 days. Approximately 10% of breast cancers are not detected by mammography. A normal mammogram should not delay biopsy of a clinically suspicious abnormality. [id number] Electronically Signed: Jaspreet Cordero MD at 14:15 EDT ,
== END | disposition home or self-care (01) ==
LOC: OPBI 13:13
PROVIDERS: PCP Family Medicine; Visit Provider Family Medicine
DX: Z12.31 Encounter for screening mammogram for malignant neoplasm of breast (principal)
CPT/HCPCS: 77063; 77067

== ENCOUNTER → 2022-06-30 | Outpatient (CLI) | payer MEDICARE, BC, SELFPAY ==
--- NOTE | 2022-06-30 13:25 | BD_ITS ---
STUDY: DUAL ENERGY X-RAY ABSORPTIOMETRY / DXA REASON FOR EXAM: Female, 67 years old. M810 TECHNIQUE: Bone Mineral Density (BMD) measurements of lumbar spine and bilateral hips were obtained. COMPARISON: None. FINDINGS: Lumbar Spine (L1-L4): g/cm2 (0.747) / T-score (-2.7) / Z-score (-1.0) Findings are suggestive of osteoporosis with a high fracture risk. Left Femur Total: g/cm2 (0.492) / T-score (-3.7) / Z-score (-2.4) Left Femoral Neck: g/cm2 (0.447) / T-score (-3.6) / Z-score (-2.1) Right Femur Total: g/cm2 (0.442) / T-score (-4.1) / Z-score (-2.9) Right Femoral Neck: g/cm2 (0.432) / T-score (-3.8) / Z-score (-2.2) BD/Dexa Bone Density Study IMPRESSION: The patient is considered osteoporotic as outlined below according to World [employer] Organization (WHO) criteria with a high fracture risk. Reference Information: The T-score is the number of standard deviations above or below the standard which is normal for young adults at their peak bone mineral density. The World Health Organization (WHO) interprets the T-scores as follows: Above -1 Normal bone density Between -1 and -2.5 Osteopenia Equal to / or below -2.5 Osteoporosis As a practical clinical guideline, osteopenia may be graded as follows: Mild -1 through -1.5 Moderate -1.6 through -2.0 Severe -2.1 through -2.4 The Z-score is the number of standard deviations above or below age-matched controls. A Z-score of less than -1.5 would be considered abnormal. References: 1. NIH Osteoporosis and Related Bone Diseases www osteo.org 2. International Society for Clinical Densitometry www iscd.org 3. National Osteoporosis Foundation www nof.org Electronically Signed: Jaspreet Coredro MD at 11:37 EDT ,
== END | disposition home or self-care (01) ==
LOC: OPBD 13:06
PROVIDERS: PCP Family Medicine; Referring Provider Family Medicine; Visit Provider Family Medicine
DX: M81.0 Age-related osteoporosis without current pathological fracture (principal)
CPT/HCPCS: 77080

== ENCOUNTER → 2022-11-04 | Outpatient (CLI) | payer MEDICARE, BC, SELFPAY ==
--- NOTE | 2022-11-04 12:41 | ECHOD_ITS ---
Reason For Study: MURMUR Procedure This was a 2D Doppler, Color Flow transthoracic echocardiogram. Exam performed in department. Left Ventricle Normal LV size. Left ventricular systolic function is normal. The estimated ejection fraction is 65 %. No regional wall motion abnormalities noted. Right Ventricle Normal RV size. Normal systolic function. Atria Normal left atrium. Normal right atrium. Mitral Valve Mild focal mitral valve thickening. Mild-Moderate (1-2+) eccentric mitral valve insufficiency. Tricuspid Valve Normal tricuspid valve. Aortic Valve Trisinus/trileaflet aortic valve. Mild (1+) aortic valve insufficiency. Pulmonic Valve Normal pulmonic valve. Great Vessels Normal aortic root. The pulmonary artery is normal size. Normal inferior vena cava. Pericardium/Pleural No pericardial effusion. MMode/2D Measurements & Calculations LVIDd: 4.3 cm IVSd: 0.93 cm Ao root diam: 3.0 cm LVIDs: 3.5 cm LVPWd: 0.79 cm RVDd: 2.9 cm FS: 19.2 % LAV(MOD-bp): 57.3 ml LVAd ap4: 25.3 cm2 SV(MOD-sp4): 42.1 ml LAV(MOD-bp) Indexed: 33.0 ml/m2 LVLd ap4: 7.5 cm LAV(MOD-sp2): 59.7 ml EDV(MOD-sp4): 68.0 ml LAV(MOD-sp4): 53.7 ml EDV(sp4-el): 71.9 ml LVAs ap4: 13.4 cm2 LVLs ap4: 5.9 cm ESV(MOD-sp4): 25.9 ml ESV(sp4-el): 25.6 ml EF(MOD-sp4): 61.9 % EF(sp4-el): 64.4 % SV(sp4-el): 46.3 ml LA A4 area: 19.3 cm2 LA dimension(2D): 4.2 cm RA A4 area: 14.5 cm2 TAPSE: 2.7 cm Time Measurements MV dec time: 0.28 sec Doppler Measurements & Calculations MV E max carlos: 72.4 cm/sec Med Peak E' Carlos: 8.2 cm/sec MV V2 max: 89.8 cm/sec MV A max carlos: 81.2 cm/sec E/E' med: 8.8 MV max P.2 mmHg MV E/A: 0.89 MV V2 mean: 58.8 cm/sec MV mean P.5 mmHg MV V2 VTI: 31.9 cm Ao V2 max: 121.2 cm/sec AI max carlos: 376.2 cm/sec MV dec slope: 259.8 cm/sec2 Ao max P.9 mmHg AI max P.6 mmHg Ao V2 mean: 86.5 cm/sec Ao mean P.3 mmHg AI dec slope: 160.2 cm/sec2 Ao V2 VTI: 27.4 cm AI P1/2t: 687.9 msec AV (velocity ratio): 0.84 LV V1 max: 77.9 cm/sec PA V2 max: 89.1 cm/sec TR max carlos: 226.5 cm/sec LV V1 max P.9 mmHg PA V2 mean: 66.9 cm/sec TR max P.5 mmHg LV V1 mean P.0 mmHg LV V1 mean: 65.6 cm/sec LV V1 VTI: 23.0 cm ECHO/Echo Complete Interpretation Summary Normal LV size. Left ventricular systolic function is normal. The estimated ejection fraction is 65 %. Mild-Moderate (1-2+) eccentric mitral valve insufficiency. Mild (1+) aortic valve insufficiency. Ordering Physician: Belle Aaron Referring Physician: Belle Aaron Performed By: Elba Xiong RCS
== END | disposition home or self-care (01) ==
PROVIDERS: PCP Family Medicine; Referring Provider Physician Assistant Medical; Visit Provider Physician Assistant Medical
DX: I34.0 Nonrheumatic mitral (valve) insufficiency (principal); R00.2 Palpitations; R01.1 Cardiac murmur, unspecified
CPT/HCPCS: 93306

== ENCOUNTER → 2023-06-09 | Outpatient (CLI) | payer MEDICARE, BC, SELFPAY ==
--- NOTE | 2023-06-09 11:25 | RAD_ITS ---
HISTORY: PAIN. TECHNIQUE: XR Spine Lumbar 2 or 3 Views. COMPARISON: None. FINDINGS: VERTEBRAE: Vertebral body heights preserved. Posterior elements appear intact. ALIGNMENT: 2-3 mm anterolisthesis of L3-4. Mild thoracolumbar dextroscoliosis. INTERVERTEBRAL DISCS: Mild degenerative endplate changes and intervertebral disc space narrowing of L3-4 and L4-5. SOFT TISSUES: Surgical clips in the right pelvis. RAD/Lumbar Spine 2 or 3 Views IMPRESSION: No acute fracture or dislocation identified in the lumbar spine. Mild degenerative change. Mild scoliosis. Mild anterolisthesis of L3-4. Electronically Signed: Damari Limon MD at 11:11 EDT ,
--- NOTE | 2023-06-09 11:25 | RAD_ITS ---
STUDY: X-RAY - LEFT FOOT CLINICAL: Female, 68 years old. PAIN TECHNIQUE: 3 view(s) of the foot. COMPARISON: June 22, 2014 report only left foot FINDINGS: Normal talus, calcaneus, and tarsal bones. Normal visualized subtalar, talonavicular, calcaneocuboid, tarsal and tarsometatarsal articulations. Normal metatarsi. Normal metatarsophalangeal joint of the great toe. Normal tibial and fibular sesamoid bones. Normal interphalangeal joint of the great toe. Normal phalanges of the great toe. Normal second through fifth metatarsophalangeal joints. Normal interphalangeal joints and phalanges of the lesser toes. The soft tissue structures are unremarkable. RAD/Foot min 3 Views IMPRESSION: Normal x-ray examination of the foot. Electronically Signed: Landon Mera MD at 23:16 EDT ,
[2023-06-09 15:28] LABS: Absolute Lymphocyte Count 1.81 X10^3/uL (0.83-4.51); Absolute Neutrophil Count 3.3 X10^3/uL (2.0-7.7); Basophil# 0.03 X10^3/uL; Basophil% 0.5 % (0-1); Eosinophil# 0.12 X10^3/uL; Eosinophils% 2.1 % (0-5); Hematocrit 43.5 % (37-47); Hemoglobin 13.6 g/dL (12.0-15.0); Lymphocyte # 1.81 X10^3/ul (0.83-4.51); Lymphocyte % 31.5 % (19-41); Mean Corp Hgb Conc 31.3 g/dL (32-36); Mean Corpuscular Hgb 29.4 pg (27.0-32.0); Mean Corpuscular Volume 94.2 fL (81-99); Mean Platelet Vol. 9.9 fl (6.2-12.0); Monocyte# 0.44 X10^3/uL; Monocyte% 7.7 % (0-10); NRBC Flagged by Analyzer 0 % (0-5); Neutrophil # 3.33 X10^3/uL (2.7-7.7); Neutrophil % 57.9 % (47-70); Platelet Count 260 K/mm3 (150-450); RBC Distribution Width SD 44.8 fl (35.1-43.9); Red Blood Count 4.62 M/mm3 (4.2-5.4); White Blood Count 5.8 K/mm3 (4.4-11.0)
[2023-06-09 15:57] LABS: Vitamin D,25 Hydroxy 39.8 ng/mL
[2023-06-09 16:15] LABS: ALB/GLOB Ratio 1.1 RATIO (0.9-2.4); AST(SGOT) 25 U/L (15-37); Alanine Aminotransfer ALT/SGPT 40 U/L (13-56); Alkaline Phosphatase 108 U/L (45-117); Anion Gap 5 (5-15); BUN 18 mg/dL (7-18); BUN/Creat Ratio 18.9 RATIO (10-20); Calcium,Total 9.1 mg/dL (8.5-10.1); Chloride 105 mmol/L (98-107); Cholesterol 198 mg/dL (200); Creatinine, Serum 0.95 mg/dL (0.55-1.02); EST Glomerular Filtration Rate 62 mL/min (>60); Est Glom Filt Rate - Afr Amer 76 mL/min (>60); Globulin 3.8 g/dL (2.2-4.2); Glucose 91 mg/dL (74-106); High Density Lipoprotein 48 mg/dL; Potassium 3.9 mmol/L (3.5-5.1); Protein, Total 7.8 g/dL (6.4-8.2); Sodium Level 139 mmol/L (136-145); Triglycerides 127 mg/dL; Very Low Density Lipoprotein 25 mg/dL (5-40)
== END | disposition home or self-care (01) ==
LOC: MTLAB 11:23
PROVIDERS: PCP Family Medicine; Referring Provider Family Medicine; Visit Provider Family Medicine
DX: Z00.00 Encounter for general adult medical examination without abnormal findings (principal); M81.0 Age-related osteoporosis without current pathological fracture; E55.9 Vitamin D deficiency, unspecified; E78.5 Hyperlipidemia, unspecified; M54.10 Radiculopathy, site unspecified; M79.672 Pain in left foot
CPT/HCPCS: 36415; 72100; 73630; 80053; 80061; 82306; 85025

== ENCOUNTER 2023-10-14 16:42 | Emergency (ER) | payer MEDICARE, BC, SELFPAY ==
[2023-10-14 16:43] VITALS: BP 167/66; PULSE 88; RESP 18; TEMP 36.4; O2SAT 100; BMI 21.9
--- NOTE | 2023-10-14 16:55 | EX.ED.DYSGE1 ---
HPI History of Present Illness Chief Complaint: Syncope PFSH PFS Medical History Dyspnea on exertion Mitral valve insufficiency Palpitations Tricuspid insufficiency Vertigo Home Medications ?Medication ?Instructions ?Recorded ?Last Taken ?Type albuterol sulfate 90 mcg/actuation 2 puff inhalation Q4H PRN sob 05/17/21 Unknown History aerosol inhaler ibuprofen 200 mg tablet (Advil) 400 mg PO QHS PRN 06/08/21 Unknown History diltiazem HCl 120 mg 120 mg PO DAILY #90 caps 07/25/23 Unknown Rx capsule,extended release 24 hr Allergy/AdvReac Type Severity Reaction Status Date / Time codeine AdvReac Other Verified 10/14/23 16:43 Family History Father CVA (cerebral vascular accident) Diabetes Hypertension Brother CAD (coronary artery disease) Presence of stent in coronary artery Surgical History H/O lithotripsy History of appendectomy History of hand surgery Hx of cholecystectomy Social History Smoking Status: Never smoker alcohol intake: current details: social substance use type: does not use caffeine: Yes Type: coffee Number of servings: 1 what type of physical activity do you participate in: walking seatbelt use: always do you feel safe at home: Yes additional social history: - [place] ([place]) EXAM Physical Exam Const Vital Signs: 10/14/23 16:43 10/14/23 18:42 10/14/23 20:00 Temperature 97.5 F L Temperature Source Temporal Pulse Rate 88 81 91 Respiratory Rate 18 18 15 Blood Pressure 167/66 H 157/80 H 177/77 H Blood Pressure Mean 99 105 110 Pulse Ox 100 98 98 Oxygen Delivery Method Room Air Room Air Room Air 10/14/23 20:41 Temperature 98.6 F Temperature Source Pulse Rate 90 Respiratory Rate 21 H Blood Pressure 168/85 H Blood Pressure Mean 112 Pulse Ox 97 Oxygen Delivery Method MDM MDM MDM Narrative Medical decision making narrative: HISTORY OF PRESENT ILLNESS: 68-year-old female presents after a syncopal episode. States she was working the yard today she felt faint in her garage. She states she felt hot sat down in the garage on a golf cart and fell down striking her head and injuring her right shoulder Notes she passed out and fell into her right side injuring right side of her head and right shoulder and ribs. She also complains of a headache. Denies chest pain, shortness of breath prior to falling. Denies headache prior to falling. Denies any recent medication changes. Denies any recent vomiting or diarrhea. Denies recent illnesses or cough. The patient denies recent surgery in the last 4 weeks or immobilization in the last 3 days, denies previous diagnosis of DVT or PE, hemoptysis, unilateral leg swelling or malignancy with treatment the last 6 months or palliative. No estrogen use noted. REVIEW OF SYSTEMS: Pertinent positives: Syncope, headache, right shoulder pain Pertinent negatives: Chest pain, volume loss, fever, shortness of breath, leg swelling PHYSICAL EXAM: Nursing triage notes reviewed, Vital signs reviewed Primary Survey Airway: Intact Breathing: Bilateral breath sounds Circulation: Palpable bilateral femorals, Palpable bilateral radial, Palpable bilateral DP and Palpable bilateral PT Disability / Spine precautions GCS Score: Eye Openin Verbal Response: 5 Motor Response: 6 Secondary Survey Constitutional: Please see MDM Head: Atraumatic, Midface stable, NO jaw malocclusion, No Cephalohematoma, and No Lacerations noted Eye: Pupils equal round and reactive to light, Extraocular muscles intact and No periorbital ecchymosis or stepoff, no evidence of entrapment ENT: Oropharynx clear, no lacerations, no hemotympanum, no raccoon eyes or mae sign Cervical spine / Neck: No cervical spine bony tenderness, crepitance, or stepoff deformity Trachea midline Lungs: Clear to auscultation, No asymmetric rise and No crepitus, no flail chest Cardiac: Regular rate and rhythm and No murmurs Abdomen: Soft, Nontender and No rebound Pelvis: Pelvis stable to compression : No evidence of genital injury Back: No midline bony tenderness to thoracic/lumbar/sacral spines Neuro: At baseline, intact strength and sensation in bilateral upper and lower extremities. 2+ patellar reflexes bilaterally. Extremities: NO gross Deformities Psych: Normal affect Nursing triage notes reviewed, Vital signs reviewed MEDICAL DECISION MAKING: Chief Complaint: Syncope External records reviewed: Prior imaging reviewed: CT scan of the brain from 2021 shows no ICH Factors affecting care: Hypertension, tricuspid sufficiency, mitral valve insufficiency, vertigo, palpitations Social determinants of health: none History obtained from others: Friend Consults: none MDM Narrative: The patient was initially hypertensive otherwise afebrile, hemodynamically stable, primary secondary trauma surveys concerning for intracranial O'Marycarmen, cervical spine abnormality, right shoulder and chest abnormalities. I obtained imaging studies as well as labs to further elucidate etiology the patient complaint. I considered the following differential diagnosis: ACS, arrhythmia, anemia, electrolyte disturbance, dehydration, traumatic injury to the head, neck, cervical spine, chest, shoulder and clavicle ALL IMAGES (IF OBTAINED) HAVE BEEN PERSONALLY REVIEWED AND INTERPRETED BY MYSELF. X-rays of the right clavicle, right shoulder read and personally viewed myself shows evidence of a distal clavicle fracture. No evidence of shoulder fracture dislocation. Radiologist agrees my interpretation. CT scan of the brain, cervical spine and chest showed no evidence of obvious traumatic injury CBC with leukocytosis suggestive of systemic inflammation, no anemia or thrombocytopenia CMP without evidence of acute kidney injury, significant electrolyte abnormality, anion gap, no evidence hepatobiliary pathology. High-sensitivity troponin is negative, no evidence of myocardial ischemia BNP within normal limits Urinalysis shows no evidence of urinary inflammation suggestive of UTI The synthesis of the patient's history, physical exam, labs images suggest no acute life-limiting etiology specifically no traumatic injury of the head, cervical spine. Noted right clavicular fracture which was treated with a sling. Gave orthopedic follow-up. 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 This may be related to dehydration given report of working outside. Encourage patient to take more p.o. fluids including Body Armor Pedialyte or Gatorade. Strict return precautions were discussed. The patient and/or family, caregivers express understanding. The patient and/or family, caregivers agrees with the plan. Shared decision making: I will have a discussion with the patient and or visitors regarding risk/benefits of further testing or admission. They will be made aware of of the risk/benefits inherent in this decision they will be given the opportunity to voice understanding. Total critical care time today provided was at least 0 minutes. This excludes separately billable procedures. Critical care time (if documented) is secondary to the patient having high probability of clinically significant/life threatening deterioration in the patient's condition which required my urgent intervention. Impression: 1. Syncope 2. Head trauma 3. Right clavicular fracture Dispo: Discharge home This note was generated with [employer] dictation software. It may contain incorrect words, spelling, and punctuation that were not noted in review of the chart prior to signing. Lab Data Labs: Laboratory Results - last 24 hr 10/14/23 10/14/23 17:23 19:50 WBC 15.3 H RBC 4.66 Hgb 13.8 Hct 42.0 MCV 90.1 MCH 29.6 MCHC 32.9 RDW Std Deviation 43.8 RDW Coeff of Yesi 13.4 Plt Count 228 MPV 9.4 Sodium 138 Potassium 3.5 Chloride 106 Carbon Dioxide 26.0 Anion Gap 6 BUN 17 Creatinine 0.95 Estim Creat Clear Calc 58.76 Est GFR (MDRD) Af Amer 76 Est GFR (MDRD) Non-Af 63 BUN/Creatinine Ratio 18.0 Glucose 120 H Calcium 9.3 Total Bilirubin 0.30 AST 39 H ALT 54 Alkaline Phosphatase 114 Troponin I High Sens 8 9 B-Natriuretic Peptide 14.1 Total Protein 7.9 Albumin 3.9 Globulin 4.0 Albumin/Globulin Ratio 1.0 Urine Color Yellow Urine Clarity Clear Urine pH 7.0 Ur Specific Entiat 1.010 Urine Protein Negative Urine Glucose (UA) Normal Urine Ketones Negative Urine Occult Blood 25 H Urine Nitrite Negative Urine Bilirubin Negative Urine Urobilinogen Normal Ur Leukocyte Esterase Negative Urine RBC 0 SEEN Urine WBC 0-5 SEEN Ur Squamous Epith Cells 0 SEEN Urine Bacteria 0 SEEN Urine Mucus 0 SEEN Radiography Diagnostic Testing: Clinical Impression(s) from Imaging Studies Brain CT 10/14/23 17:02 IMPRESSION: Right frontal scalp soft tissue swelling. No acute intracranial pathology. Electronically Signed: Luis Kuhn DO at 18:38 EDT , Cervical Spine CT 10/14/23 17:02 IMPRESSION: No acute findings in the cervical spine. Degenerative changes. Electronically Signed: Luis Kuhn DO at 18:41 EDT , Chest CT 10/14/23 17:02 IMPRESSION: 1. Partially visualized dilation of the bilateral renal pelves and renal calyces suggesting hydronephrosis. 2. Impacted appearing potentially subacute right distal clavicle fracture. Correlate for associated symptoms. No distinct rib fractures are identified. Degenerative changes in the spine. 3. Mild atelectasis in the basilar lungs. Electronically Signed: Luis Kuhn, at 18:35 EDT , Shoulder X-Ray 10/14/23 17:02 IMPRESSION: Right distal clavicle fracture without significant displacement. This appears mildly impacted. Electronically Signed: Luis Kuhn at 18:43 EDT , Clavicle X-Ray 10/14/23 17:50 IMPRESSION: Nondisplaced mildly impacted distal clavicle fracture. Electronically Signed: Luis Kuhn, at 18:43 EDT , Discharge Plan Triage Chief Complaint: Syncope ED Provider: Link Julian Dx/Rx/DC Orders Instructions: ED Fracture, Clavicle, ED Fainting, Uncertain Cause Prescriptions: No Action ibuprofen [Advil] 200 mg tablet 400 mg PO QHS PRN albuterol sulfate 90 mcg/actuation Hfa Aerosol Inhaler 2 puff INHALATION Q4H PRN (Reason: sob) diltiazem HCl 120 mg capsule,extended release 24hr 120 mg PO DAILY Qty: 90 3RF Primary Care Provider: Kesha Phillips Referrals: Kesha Phillips MD [Primary Care Provider] - Raghav Jain MD [Med Staff - Active Staff] - Activity Restrictions/Additional Instructions: Thank you for trusting us with your care today! You have been diagnosed with a clavicular fracture. These usually heal with time and do not typically require surgery. Please wear your sling for comfort. Please remove your arm from the sling and perform range of motion exercises daily to prevent frozen shoulder (adhesive capsulitis). Please take Tylenol (2 pills, 650 mg), ibuprofen (2 pills, 400 mg) every 6 hours as needed for pain and fever control. Please return to the emergency department if your symptoms change or worsen. Please follow with your primary care physician for further outpatient evaluation and management. Print Language: Angolan Disposition Disposition: Home, Self Care Discharge Date/Time: 10/14/23 20:43
--- NOTE | 2023-10-14 17:02 | CT_ITS ---
EXAM: CT CERVICAL SPINE WITHOUT INTRAVENOUS CONTRAST CLINICAL INDICATION: fall, head/neck pain TECHNIQUE: Helically acquired images were obtained of the cervical spine without intravenous contrast. 2D reformatted images were reviewed. This CT exam was performed using one or more of the following dose reduction techniques: automated exposure control, adjustment of the mA and/or kV according to patient size, and/or use of iterative reconstruction technique. COMPARISON: CT chest without contrast on the same date. FINDINGS: VERTEBRAE: Multilevel facet, uncovertebral joint, and endplate osteophytosis. T1 spinous process bone island. No fracture. No traumatic subluxation. No discrete lytic or blastic abnormality. Normal alignment. DISCS/SPINAL CANAL/NEURAL FORAMINA: Multilevel intervertebral disc height loss. Mild multilevel spinal canal stenosis. Mild multilevel neural foraminal narrowing. SOFT TISSUES: No significant abnormality. No prevertebral soft tissue swelling. VASCULATURE: Vascular calcifications. LYMPH NODES: No significant abnormality. No cervical adenopathy. LUNG APICES: Scarring calcification at the right lung apices. CT/Spine Cervical without Contras IMPRESSION: No acute findings in the cervical spine. Degenerative changes. Electronically Signed: Luis Kuhn DO at 18:41 EDT ,
--- NOTE | 2023-10-14 17:02 | CT_ITS ---
EXAM: CT HEAD WITHOUT INTRAVENOUS CONTRAST CLINICAL INDICATION: fall, head trauma pain. TECHNIQUE: Multiple axial images were obtained of the head without intravenous contrast. This CT exam was performed using one or more of the following dose reduction techniques: automated exposure control, adjustment of the mA and/or kV according to patient size, and/or use of iterative reconstruction technique. COMPARISON: No relevant prior studies available. FINDINGS: BRAIN AND EXTRA-AXIAL SPACES: No significant abnormality. No intra- or extra-axial hemorrhage. No evidence of acute infarct. No intracranial mass or mass effect. There is preservation of the stroud/white matter interface. Ventricles are appropriate for age. Basal cisterns are patent. BONES/JOINTS: No significant abnormality. No discrete lytic or blastic abnormalities. SOFT TISSUES: Right frontal scalp soft tissue swelling. VASCULATURE: Arteriosclerosis. SINUSES: No significant findings. MASTOID AIR CELLS: No significant effusion. ORBITS: No acute findings. CT/Brain/Head without Contrast IMPRESSION: Right frontal scalp soft tissue swelling. No acute intracranial pathology. Electronically Signed: Luis Kuhn DO at 18:38 EDT ,
--- NOTE | 2023-10-14 17:02 | RAD_ITS ---
EXAM: XR RIGHT SHOULDER COMPLETE, 2 OR MORE VIEWS CLINICAL INDICATION: right shoulder pain TECHNIQUE: Two or more views of the right shoulder. COMPARISON: CT chest on the same date. FINDINGS: BONES/JOINTS: Right distal clavicle fracture without significant displacement. This appears mildly impacted. Degenerative changes in the spine. No sclerotic or destructive changes observed. SOFT TISSUES: Calcific tendinopathy of the rotator cuff with calcifications in the soft tissues along its course. No soft tissue swelling or gas. No radiopaque foreign body. RAD/Shoulder min 2 Views IMPRESSION: Right distal clavicle fracture without significant displacement. This appears mildly impacted. Electronically Signed: Luis Kuhn DO at 18:43 EDT ,
--- NOTE | 2023-10-14 17:02 | CT_ITS ---
EXAM: CT CHEST WITHOUT INTRAVENOUS CONTRAST CLINICAL INDICATION: right sided rib pain TECHNIQUE: Helically acquired images were obtained of the chest without intravenous contrast. This CT exam was performed using one or more of the following dose reduction techniques: automated exposure control, adjustment of the mA and/or kV according to patient size, and/or use of iterative reconstruction technique. COMPARISON: No relevant prior studies available. FINDINGS: LUNGS AND PLEURAL SPACES: Scarring at the right greater than left lung apices. Mild atelectasis in the basilar lungs. No mass. No pleural effusion or thickening. No pneumothorax. HEART: Coronary artery calcifications. Heart size is normal. No pericardial effusion. MEDIASTINUM: No significant abnormality. No mediastinal or hilar adenopathy. Esophagus is unremarkable. No hiatal hernia. THYROID: No significant abnormality. No thyroid lesions. BONES/JOINTS: T1 spinous process sclerotic lesion measuring up to approximately 1.2 cm consistent with a bone island. Impacted appearing potentially subacute right distal clavicle fracture. Correlate for associated symptoms. Multilevel endplate osteophytosis and Schmorl''s nodes. Multilevel intervertebral disc height loss. Multilevel facet arthrosis. VASCULATURE: Atherosclerosis. SPLEEN: Splenic granulomas. Otherwise, the spleen appears normal. KIDNEYS AND URETERS: Partially visualized dilation of the bilateral renal pelves and renal calyces suggesting hydronephrosis. CT/Chest without Contrast IMPRESSION: 1. Partially visualized dilation of the bilateral renal pelves and renal calyces suggesting hydronephrosis. 2. Impacted appearing potentially subacute right distal clavicle fracture. Correlate for associated symptoms. No distinct rib fractures are identified. Degenerative changes in the spine. 3. Mild atelectasis in the basilar lungs. Electronically Signed: Luis Kuhn DO at 18:35 EDT ,
--- NOTE | 2023-10-14 17:03 | EKG12_ITS ---
Test Reason : SYNCOPE Blood Pressure : / mmHG Vent. Rate : 084 BPM Atrial Rate : 084 BPM P-R Int : 124 ms QRS Dur : 092 ms QT Int : 370 ms P-R-T Axes : 061 004 037 degrees QTc Int : 437 ms Normal sinus rhythm Incomplete right bundle branch block Nonspecific ST abnormality Abnormal ECG Confirmed by Maikel Olson ([id number]), business editor CORAL SAUCEDA ([id number]) on 10/16/2023 10:49:54 AM Referred By: Confirmed By:Maikel Olson
[2023-10-14] MEDS: 0.9% Normal Saline (500mL Bag) 500 ML 1000 ML IV (17:23)
[2023-10-14 17:28] LABS: Bacteria 0 SEEN /hpf (None Seen); Mucous, Urine 0 SEEN /hpf (<or=2+); Red Blood Cells-Urine 0 SEEN /hpf (0-5); Squamous Epithelial Cells - UA 0 SEEN /hpf (5-10)
[2023-10-14 17:30] LABS: Hemoglobin 13.8 g/dL (12.0-15.0); Mean Corp Hgb Conc 32.9 g/dL (32-36); Mean Corpuscular Hgb 29.6 pg (27.0-32.0); Mean Corpuscular Volume 90.1 fL (81-99); Mean Platelet Vol. 9.4 fl (6.2-12.0); Platelet Count 228 K/mm3 (150-450); RBC Distribution Width CV 13.4 % (11.6-14.6); RBC Distribution Width SD 43.8 fl (35.1-43.9); Red Blood Count 4.66 M/mm3 (4.2-5.4); White Blood Count 15.3 K/mm3 (4.4-11.0)
[2023-10-14 17:31] LABS: Color, Urine Yellow (Yellow); Glucose, Dipstick Normal (Normal); Ketone-Dipstick Negative (Negative); Leukocyte Esterase-Dipstick Negative /ul (Negative); Nitrite-Dipstick Negative (Negative); Occult Blood-Urine 25 /ul (Negative); Protein-Dipstick Negative (Negative); Urine Bilirubin Dipstick Negative (Negative); Urine Clarity Clear (Clear); Urine Urobilinogen Normal (Normal)
[2023-10-14 17:41] LABS: White Blood Cells 0-5 SEEN /hpf (0-5)
[2023-10-14 17:45] LABS: BNP,B-Type NATRIURETIC PEPTIDE 14.1 pg/mL (0-100)
[2023-10-14 17:48] LABS: AST(SGOT) 39 U/L (15-37); Alanine Aminotransfer ALT/SGPT 54 U/L (13-56); Albumin, Serum 3.9 g/dL (3.2-5.0); Alkaline Phosphatase 114 U/L (45-117); Anion Gap 6 (5-15); BUN 17 mg/dL (7-18); Calcium,Total 9.3 mg/dL (8.5-10.1); Chloride 106 mmol/L (98-107); Creatinine, Serum 0.95 mg/dL (0.55-1.02); EST Glomerular Filtration Rate 63 mL/min (>60); Est Glom Filt Rate - Afr Amer 76 mL/min (>60); Estimated Creatinine Clearance 58.76 ml/min; Glucose 120 mg/dL (74-106); Potassium 3.5 mmol/L (3.5-5.1); Protein, Total 7.9 g/dL (6.4-8.2); Sodium Level 138 mmol/L (136-145); Troponin-I HS (w/2H Reflex) 8 pg/mL (3.0-54.0)
--- NOTE | 2023-10-14 17:50 | RAD_ITS ---
EXAM: XR RIGHT CLAVICLE COMPLETE, 2 OR MORE VIEWS CLINICAL INDICATION: right shoulder pain TECHNIQUE: Frontal and lordotic views of the right clavicle. COMPARISON: Shoulder on the same date. FINDINGS: BONES/JOINTS: Nondisplaced mildly impacted distal clavicle fracture. Preservation of the joint space. No sclerotic or destructive changes observed. SOFT TISSUES: No significant abnormality. No soft tissue swelling or gas. No radiopaque foreign body. RAD/Clavicle IMPRESSION: Nondisplaced mildly impacted distal clavicle fracture. Electronically Signed: Luis Kuhn DO at 18:43 EDT ,
[2023-10-14 18:42] VITALS: BP 157/80; PULSE 81; RESP 18; O2SAT 98
[2023-10-14 19:27] LABS: Reflex Troponin-HS? (from REC) Y
[2023-10-14] MEDS: Acetaminophen 325 MG Tablet 650 MG PO (19:48)
[2023-10-14 20:00] VITALS: BP 177/77; PULSE 91; RESP 15; O2SAT 98
[2023-10-14 20:16] LABS: Troponin-I HS 9 pg/mL (3.0-54.0)
[2023-10-14 20:41] VITALS: BP 168/85; PULSE 90; RESP 21; TEMP 37; O2SAT 97
== END 2023-10-14 20:43 | disposition home or self-care (01) ==
PROVIDERS: Emergency Provider Emergency Medicine; PCP Family Medicine; Visit Provider Emergency Medicine
DX: S42.034A Nondisplaced fracture of lateral end of right clavicle, initial encounter for closed fracture (principal); S09.90XA Unspecified injury of head, initial encounter; S29.9XXA Unspecified injury of thorax, initial encounter; V86.49XA Person injured while boarding or alighting from other special all-terrain or other off-road motor vehicle, initial encounter; Y92.59 Other trade areas as the place of occurrence of the external cause; R55 Syncope and collapse; I10 Essential (primary) hypertension; R00.2 Palpitations; I08.1 Rheumatic disorders of both mitral and tricuspid valves; Z79.899 Other long term (current) drug therapy
CPT/HCPCS: 70450; 71250; 72125; 73000; 73030; 80053; 81001; 83880; 84484; 85027; 93005; 96360; 99284; J7040

== ENCOUNTER → 2023-12-25 | Outpatient (CLI) | payer MEDICARE, BC, SELFPAY ==
--- NOTE | 2023-12-25 13:57 | ECHOD_ITS ---
Reason For Study: MITRAL REGURGITATION Procedure This was a 2D Doppler, Color Flow transthoracic echocardiogram. Exam performed in department. Left Ventricle Normal LV size. The left ventricular ejection fraction is 60 %. No regional wall motion abnormalities noted. Right Ventricle Normal RV size. Normal systolic function. Atria Normal left atrium. Normal right atrium. Mitral Valve Mild focal mitral valve calcification of the anterior leaflet. Mild-Moderate (1-2+) eccentric mitral valve insufficiency. Tricuspid Valve Normal tricuspid valve. Mild (1+) tricuspid valve insufficiency. Pulmonary artery systolic pressure is 31 mmHg. Aortic Valve Trisinus/trileaflet aortic valve. Mild (1+) aortic valve insufficiency. Pulmonic Valve Normal pulmonic valve. Great Vessels Normal aortic root. The pulmonary artery is normal size. Inferior vena cava collapse with respiration. Pericardium/Pleural No pericardial effusion. MMode/2D Measurements & Calculations LVIDd: 4.2 cm IVSd: 0.98 cm LVOT diam: 2.0 cm LVIDs: 2.5 cm LVPWd: 1.0 cm LVOT area: 3.2 cm2 RVDd: 2.8 cm FS: 41.5 % asc Aorta Diam: 3.2 cm LAV(MOD-bp): 40.5 ml LVAd ap4: 21.4 cm2 LAV(MOD-bp) Indexed: 22.7 ml/m2 LVLd ap4: 6.9 cm LAV(MOD-sp2): 42.0 ml EDV(MOD-sp4): 53.9 ml LAV(MOD-sp4): 38.7 ml EDV(sp4-el): 56.3 ml LVAs ap4: 11.3 cm2 LVLs ap4: 6.1 cm ESV(MOD-sp4): 18.2 ml ESV(sp4-el): 17.7 ml EF(MOD-sp4): 66.2 % EF(sp4-el): 68.6 % LVAd ap2: 18.8 cm2 SV(MOD-sp4): 35.7 ml SV(MOD-sp2): 26.3 ml LVLd ap2: 6.8 cm SI(MOD-sp4): 20.0 ml/m2 SI(MOD-sp2): 14.7 ml/m2 EDV(MOD-sp2): 42.0 ml EDV(sp2-el): 43.8 ml LVAs ap2: 10.5 cm2 LVLs ap2: 6.0 cm ESV(MOD-sp2): 15.7 ml ESV(sp2-el): 15.6 ml EF(MOD-sp2): 62.6 % SV(sp4-el): 38.6 ml Ao sinus diam: 2.[address] Junction: 2.7 cm LA dimension(2D): 3.6 cm LA A4 area: 16.1 cm2 RA A4 area: 11.0 cm2 TAPSE: 2.2 cm Time Measurements MV dec time: 0.19 sec Doppler Measurements & Calculations MV E max carlos: 68.2 cm/sec Lat Peak E' Carlos: 7.6 cm/sec Med Peak E' Carlos: 9.1 cm/sec MV A max carlos: 103.0 cm/sec E/E' lat: 9.0 E/E' med: 7.5 MV E/A: 0.66 MV dec slope: 367.9 cm/sec2 Ao V2 max: 134.3 cm/sec AI max carlos: 347.6 cm/sec Ao max P.2 mmHg AI max P.4 mmHg Ao V2 mean: 93.3 cm/sec AI dec slope: 265.0 cm/sec2 Ao mean P.9 mmHg AI P1/2t: 384.2 msec Ao V2 VTI: 24.8 cm AV (velocity ratio): 0.81 IWONA(I,D): 2.6 cm2 IWONA(V,D): 2.4 cm2 LV V1 max: 99.7 cm/sec SV(LVOT): 64.9 ml PA V2 max: 90.0 cm/sec LV V1 max P.0 mmHg PA max PG (full): 0.91 mmHg LV V1 mean P.3 mmHg LV V1 mean: 72.1 cm/sec LV V1 VTI: 20.0 cm TR max carlos: 264.1 cm/sec TR max P.9 mmHg ECHO/Echo Complete Interpretation Summary Normal LV size. The left ventricular ejection fraction is 60 %. Mild-Moderate (1-2+) eccentric mitral valve insufficiency. Mild (1+) aortic valve insufficiency. Possible liver cyst Ordering Physician: Mathieu Mclain Referring Physician: Mathieu Mclain Performed By: Sarah James RDCS and Student
--- NOTE | 2023-12-25 13:57 | CDU_ITS ---
Reason For Study: Pulsation feeling in neck Rt. Velocities/BP Lt. Velocities/BP Prox CCA 94.1/17.9 cm/sec. Prox CCA 127.1/21.2 cm/sec. Mid CCA 103.9/17.9 cm/sec. Mid CCA 81.5/21.2 cm/sec. Dist CCA 83.1/16.0 cm/sec. Dist CCA 84.6/22.0 cm/sec. Prox ICA 71.0/13.8 cm/sec. Prox ICA 78.4/29.0 cm/sec. Mid ICA 95.2/32.5 cm/sec. Mid ICA 94.8/29.0 cm/sec. Dist ICA 75.2/22.3 cm/sec. Dist ICA 87.5/27.2 cm/sec. Rt. ICA/CCA = 0.9. Lt. ICA/CCA = 1.2. Prox ECA 61.6/9.2 cm/sec. Prox ECA 85.8/13.4 cm/sec. Rt. Vert. 75.4/18.2 cm/sec. Lt. Vert. 53.5/12.8 cm/sec. Right Extracranial There is intimal thickening but no significant atherosclerotic plaque noted in the right common carotid artery. There is intimal thickening but no significant atherosclerotic plaque noted in the right internal carotid artery. There is intimal thickening but no significant atherosclerotic plaque noted in the right external carotid artery. Antegrade flow is noted in the right vertebral artery. Left Extracranial There is intimal thickening but no significant atherosclerotic plaque noted in the left common carotid artery. There is intimal thickening but no significant atherosclerotic plaque noted in the left internal carotid artery. There is intimal thickening but no significant atherosclerotic plaque noted in the left external carotid artery. Antegrade flow is noted in the left vertebral artery. Procedure Carotid Duplex [id number]. This is a Carotid Duplex examination using B-mode, color flow and specral Doppler. The exam was diagnostic. Exam performed in department. VL/Carotid Duplex Ultrasound Interpretation Summary Normal right extracranial internal carotid. Normal left extracranial internal carotid. Patent and antegrade vertebrals bilaterally. Normal caliber vessels bilateral Ordering Physician: Mathieu Mclain Referring Physician: Mathieu Mclain Performed By: Sharad Worley RVT
== END | disposition home or self-care (01) ==
LOC: CVS 13:51
PROVIDERS: PCP Family Medicine; Referring Provider Nurse Practitioner Family; Visit Provider Nurse Practitioner Family
DX: I34.0 Nonrheumatic mitral (valve) insufficiency (principal); I65.22 Occlusion and stenosis of left carotid artery; R01.1 Cardiac murmur, unspecified
CPT/HCPCS: 93306; 93880

== ENCOUNTER → 2024-01-22 | Outpatient (CLI) | payer MEDICARE, BC, SELFPAY ==
--- NOTE | 2024-01-22 15:38 | RAD_ITS ---
EXAM: XR RIGHT SHOULDER COMPLETE, 2 OR MORE VIEWS CLINICAL INDICATION: PAIN TECHNIQUE: Two or more views of the right shoulder. COMPARISON: Clavicle on the same date. FINDINGS: BONES/JOINTS: Hypertrophic changes of the distal clavicle likely secondary to remote posttraumatic change. Normal acromioclavicular interval. Glenohumeral arthrosis. No evidence of additional acute fracture. Preservation of the joint space. No sclerotic or destructive changes observed. SOFT TISSUES: No significant abnormality. No soft tissue swelling or gas. No radiopaque foreign body. RAD/Shoulder min 2 Views IMPRESSION: Hypertrophic changes of the distal clavicle likely secondary to posttraumatic change. Normal acromioclavicular interval. Electronically Signed: Luis Kuhn DO at 23:52 EST ,
--- NOTE | 2024-01-22 15:38 | RAD_ITS ---
EXAM: XR RIGHT CLAVICLE COMPLETE, 2 OR MORE VIEWS CLINICAL INDICATION: PAIN TECHNIQUE: Frontal and lordotic views of the right clavicle. COMPARISON: Right shoulder on the same date. FINDINGS: BONES/JOINTS: Degenerative and/or perhaps chronic posttraumatic hypertrophic changes of the distal clavicle with associated acromioclavicular joint arthrosis. Mild glenohumeral joint arthrosis. Degenerative changes in the spine. No acute fracture. No subluxation. Normal alignment. No sclerotic or destructive changes observed. SOFT TISSUES: No significant abnormality. No soft tissue swelling or gas. No radiopaque foreign body. RAD/Clavicle IMPRESSION: 1. Degenerative and/or perhaps chronic posttraumatic hypertrophic changes of the distal clavicle with associated acromioclavicular joint arthrosis. No acute fracture or dislocation. 2. Mild glenohumeral joint arthrosis. Electronically Signed: Luis Kuhn DO at 23:48 EST ,
--- NOTE | 2024-01-22 15:38 | RAD_ITS ---
EXAM: XR LEFT RIBS AND AP CHEST, 3 OR MORE VIEWS CLINICAL INDICATION: PLEURODYNIA TECHNIQUE: Frontal and oblique views of the left ribs and frontal view of the chest. COMPARISON: Thoracic spine on the same date. CT chest, 10/14/2023. FINDINGS: LUNGS AND PLEURAL SPACES: Suspect mild right apical scarring which would correlate with the prior examination. Apical pleural calcifications are present. No pneumothorax. No effusion. HEART: No significant abnormality. Cardiac silhouette not enlarged. MEDIASTINUM: Central airways and mediastinal contour are unremarkable. BONES/JOINTS: Degenerative changes in the spine with subtle scoliotic curvature. No evidence of a displaced rib fracture. RAD/Ribs Uni Min 3V w/PA Chest IMPRESSION: 1. No evidence of a displaced rib fracture. 2. Degenerative changes in the spine with subtle scoliotic curvature. 3. Suspect mild right apical scarring which would correlate with the prior examination. Apical pleural calcifications are present. No additional acute pathology. Electronically Signed: Luis Kuhn DO at 23:51 EST ,
--- NOTE | 2024-01-22 15:40 | RAD_ITS ---
STUDY: X-RAY - THORACIC SPINE REASON FOR EXAM: Female, 68 years old. PAIN TECHNIQUE: 3 view(s) of the thoracic spine were obtained. COMPARISON: None. FINDINGS: Normal kyphosis of the thoracic spine. There is no substantial scoliosis. Normal thoracic vertebrae and endplates. Normal disc space heights. The soft tissue structures are unremarkable. RAD/Thoracic Spine 3 Views IMPRESSION: Normal x-ray examination of the thoracic spine. Electronically Signed: Troy Laureano MD at 13:14 EST ,
== END | disposition home or self-care (01) ==
PROVIDERS: PCP Family Medicine; Referring Provider Nurse Practitioner Family; Visit Provider Nurse Practitioner Family
DX: M54.6 Pain in thoracic spine (principal); M25.511 Pain in right shoulder; R07.81 Pleurodynia; Z91.81 History of falling
CPT/HCPCS: 71101; 72072; 73000; 73030

== ENCOUNTER → 2024-04-02 | Outpatient (CLI) | payer MEDICARE, BC, SELFPAY ==
--- NOTE | 2024-04-02 10:28 | US_ITS ---
PROCEDURE: ABDOMEN LIMITED REASON FOR EXAM: Liver cyst seen on ECHO COMPARISON: CT dated 11/06/2020. FINDINGS: Liver: Grossly normal size and echotexture. Gallbladder: The patient is status post cholecystectomy. Common bile duct: Normal measuring 7 mm. Pancreas: Visualized portions are sonographically unremarkable. Kidneys: The right kidney measures 10.5 cm in length. Renal parenchymal thicknesses and echotextures are preserved. No hydronephrosis. Aorta: Visualized abdominal aorta is of normal size. IVC: Visualized inferior vena cava is unremarkable. Peritoneal Findings: No ascites identified. US/Abdomen Limited IMPRESSION: No liver cyst identified. The patient is status post cholecystectomy. Reading Location: [id number]
== END | disposition home or self-care (01) ==
LOC: US 10:26
PROVIDERS: PCP Family Medicine; Referring Provider Family Medicine; Visit Provider Family Medicine
DX: K76.89 Other specified diseases of liver (principal)
CPT/HCPCS: 76705

== ENCOUNTER → 2024-11-25 | Outpatient (CLI) | payer MEDICARE, BC, SELFPAY ==
--- NOTE | 2024-11-25 14:15 | BI_ITS ---
EXAM: SCRN MAMM (CAD)W/PATEL BILAT DATE: 11/25/2024 CLINICAL HISTORY: F, Age 69 y/o , SCREENING TECHNIQUE: Procedure Code: [id number] Modality: MG Procedure: SCRN MAMM (CAD)W/PATEL BILAT COMPARISON: Prior exam(s) dated 05/12/2022, 04/07/2021. FINDINGS: TISSUE DENSITY: There are scattered areas of fibroglandular density. Bilateral Breast Mammographic Findings: No significant masses, calcifications or other abnormalities are identified. Benign-appearing round microcalcifications are seen in both breasts. Stable nodular masslike densities are seen in both breast. Partially obscured, stable, isodense masses are seen in both breasts. BI/SCRN MAMM (CAD)W/PATEL BILAT IMPRESSION: Benign screening mammogram. OVERALL FINAL ASSESSMENT BI-RADS 2: BENIGN RECOMMENDATION: Routine annual follow-up in 1 Year Additional Recommendation none A letter with findings and recommendations will be mailed to the patient. Reading Location: [id number]
== END | disposition home or self-care (01) ==
LOC: OPBI 14:13
PROVIDERS: PCP Family Medicine; Referring Provider Family Medicine; Visit Provider Family Medicine
DX: Z12.31 Encounter for screening mammogram for malignant neoplasm of breast (principal)
CPT/HCPCS: 77063; 77067

== ENCOUNTER → 2025-01-23 | Outpatient (CLI) | payer MEDICARE, BC, SELFPAY ==
[2025-01-23 15:49] LABS: AST(SGOT) 20 U/L (<=31); Alanine Aminotransfer ALT/SGPT 23 U/L (<=34); Albumin, Serum 4.4 g/dL (3.4-4.8); Alkaline Phosphatase 110 U/L (35-104); Anion Gap 10 (5-15); BUN 19 mg/dL (4-19); BUN/Creat Ratio 21.9 RATIO (10-20); Calcium,Total 9.5 mg/dL (7.6-11.0); Carbon Dioxide 24.6 mmol/L (21.0-32.0); Chloride 105 mmol/L (98-108); Globulin 3.1 g/dL (2.2-4.2); Glucose 90 mg/dL (70-99); Potassium 4.4 mmol/L (3.3-5.1)
--- OUTSIDE RECORDS SUMMARY | 2025-01-23 17:57 | XMS RPT_ITS | CCD ---
Author Organization [facility] Care Team Providers Care Business Support Liaison Name Role Phone NEHER, NAIF R Unavailable Unavailable CEBUL, AUDRA Unavailable Unavailable CEBUL, AUDRA Unavailable Unavailable NEHER, NAIF R Unavailable Unavailable CEBUL, AUDRA Unavailable Unavailable NEHER, NAIF R Unavailable Unavailable IMCA Unavailable Unavailable CEBUL, AUDRA Unavailable Unavailable NEHER, NAIF R Unavailable Unavailable CEBUL, AUDRA Unavailable Unavailable CEBUL, AUDRA Unavailable Unavailable NEHER, NAIF RAY Unavailable Unavailable CEBUL III, AUDRA A Unavailable Unavailable NEHER, NAIF RAY Unavailable Unavailable NEHER, NAIF RAY Unavailable Unavailable Dr. Coy Sorto Referring Provider [phone] Dr. Neris Newton Attending Provider [phone] Dr. Kesha Phillips Primary Care Provider [phone] Dr. Kesha Phillips Primary Care Provider [phone] Belle Cisneros Attending Provider Unavailable Dr. Kesha Phillips Referring Provider [phone] Kam Benavides Attending Provider [phone] Dr. Kam Benavides Referring Provider [phone] Dr. Kam Benavides Other Provider [phone] Kesha Phillips Primary Care Provider [phone] Dr. Kesha Phillips Referring Provider [phone] Galen KELLEY, ALLIE Wilkins Attending Provider Dr. Kesha Phillips Primary Care Provider [phone] Dr. Billy Ray Attending Provider [phone] Kesha Phillips Referring Provider Roof AIRLINE SECURITY REPRESENTATIVE, AIRLINE SECURITY REPRESENTATIVE-C Mathieu Shearer Attending Provider [phone] Jacqueline MUÑOZ, Dr. Rebolledo Primary Care Physician Jacqueline MUÑOZ, Dr. Rebolledo Attending Physician Jacqueline MUÑOZ, Dr. Rebolledo Referring Provider Mitaylor, Kesha Attending Unavailable Miedel, Kesha Referring Unavailable Miedel, Kesha Primary Care Unavailable James, Yuli Attending Unavailable James, Yuli Referring Unavailable Miedel, Kesha Primary Care Unavailable Miedel, Kesha Attending Unavailable Miedel, Kesha Referring Unavailable Miedel, Kesha Primary Care Unavailable Roof AIRLINE SECURITY REPRESENTATIVE, Mathieu Shearer Attending Unavailable Rayne AIRLINE SECURITY REPRESENTATIVEMathieu Referring Unavailable Miedel, Kesha Primary Care Unavailable Billy Ray Attending Unavailable Miedel, Kesha Primary Care Unavailable Sebastien Reza Attending Unavailable Miedel, Kesha Primary Care Unavailable Roof AIRLINE SECURITY REPRESENTATIVE, Mathieu Shearer Referring Unavailable Naga Francis Attending Unavailable Miedel, Kesha Referring Unavailable Miedel, Kesha Primary Care Unavailable Allergies Allergy Classification Reported Allergen(s) Allergy Type Date of Onset Reaction(s) Facility (2 sources) Adhesive Tape; Translations: [ADHESIVE TAPE (ROSINS)] Propensity to adverse reactions (disorder) 0 [facility] Repository (2 sources) azithromycin; Translations: [AZITHROMYCIN] Drug Allergy 8 [facility] Repository (10 sources) codeine; Translations: [CODEINE] Drug Allergy 6 [facility], Other [facility] Repository (2 sources) diclofenac; Translations: [DICLOFENAC SODIUM] Drug Allergy 6 [facility] Rep[facility] Medications Current Medications Medication Drug Class(es) Dates Sig (Normalized) Sig (Original) 8 hr acetaminophen 650 mg extended release oral tablet (6 sources) Start: 12-14-2023 take 1 tablet by mouth once daily as needed Start: 06-08-2021 End: 11-07-2022 take 2 tablets by mouth twice daily as needed Acetaminophen 500 mg tablet Discontinued 1000 mg PO TWICE A DAY as needed June 08, 2021 12:00am November 07, 2022 1:30pm Start: 06-08-2021 End: 11-07-2022 take 1000 mg by mouth twice daily Acetaminophen Discontinued 1000 MG PO TWICE A DAY June 08, 2021 12:00am November 07, 2022 1:30pm Albuterol Sulfate (7 sources) beta2-Adrenergic Agonist Start: 05-17-2021 take 1 puff(s) by inhalation every four hours Albuterol Sulfate Active 2 PUFF INHALATION Q4H May 17, 2021 11:45pm Start: 05-17-2021 Start: 05-17-2021 take 1 puff(s) by in halation every four hours Albuterol Sulfate Active 2 PUFF INHALATION Q4H May 17, 2021 12:00am 24 hr dilTIAZem hydrochloride 120 mg extended release oral capsule (6 sources) Calcium Channel Antoni Start: 07-11-2022 End: 07-19-2024 take 1 capsule by mouth once daily ibuprofen 200 mg oral tablet (5 sources) Nonsteroidal Anti-inflammatory Drug Start: 06-08-2021 take 2 tablets by mouth at bedtime as needed Completed/Discontinued Medications Medication Drug Class(es) Dates Sig (Normalized) Sig (Original) atenolol 25 mg oral tablet (2 sources) beta-Adrenergic Antoni Start: 03-09-2022 End: 07-11-2022 take 1 tablet by mouth once daily Atenolol 25 mg tablet Discontinued 25 mg PO DAILY 30 March 09, 2022 1:00am July 11, 2022 1:45pm meclizine hydrochloride 25 mg chewable tablet (7 sources) Antiemetic Start: 05-18-2021 End: 11-08-2021 take 1 tablet by mouth three times daily as needed for dizziness Meclizine (Antivert) 25 mg tablet,chewable Discontinued 25 mg PO THREE TIMES A DAY as needed for dizziness May 18, 2021 2:49am November 08, 2021 3:19pm potassium chloride 20 meq extended release oral tablet (7 sources) Start: 05-18-2021 End: 06-11-2021 take 1 tablet by mouth twice daily Potassium Chloride 20 mEq tablet extended release Discontinued 20 meq PO TWICE A DAY 8 May 18, 2021 12:00am June 11, 2021 10:25am Problems Active Problems Problem Classification Problem Date Documented Da te Episodic/Chronic Abdominal pain (9 sources) Chronic pelvic pain of female; Translations: [Pelvic and perineal pain] Episodic Comment on above: 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 recommend GI or PCP eval. symptom diary and fu in 2 months, repeat US Cardiac dysrhythmias (10 sources) Palpitations; Translations: [Palpitations] Onset: 12-23-2024 Episodic Conditions associated with dizziness or vertigo (14 sources) Vertigo; Translations: [Dizziness and giddiness] Episodic Fluid and electrolyte disorders (7 sources) Hypokalemia; Translations: [Hypokalemia] 05-26-2021 Episodic Heart valve disorders (11 sources) Tricuspid valve regurgitation; Translations: [Rheumatic tricuspid insufficiency] Onset: 12-23-2024 Chronic Other circulatory disease (3 sources) Elevated blood-pressure reading without diagnosis of hypertension; Translations: [Elevated blood-pressure reading, without diagnosis of hypertension] 11-08-2021 Episodic Other circulatory disease (1 source) Elevated blood-pressure reading, without diagnosis of hypertension; Translations: [Elevated blood pressure reading without diagnosis of hypertension] Episodic Other diseases of veins and lymphatics (7 sources) Pelvic varices; Translations: [Pelvic varices] 03-16-2021 Episodic Comment on above: fu imaging ordered, nl uterus and ovaries. questionable cause of pelvic pain. Other diseases of veins and lymphatics (2 sources) Pelvic varices; Translations: [Pelvic varices] Episodic Other disorders of stomach and duodenum (1 source) Functional dyspepsia; Translations: [Functional dyspepsia] Onset: 07-27-2017 Episodic Other liver diseases (1 source) Other specified diseases of liver; Translations: [Other specified diseases of liver] Onset: 04-17-2024 Chronic Other lower respiratory disease (5 sources) Dyspnea on exertion; Translations: [Other forms of dyspnea] 06-11-2021 Episodic Other lower respiratory disease (2 sources) Other forms of dyspnea; Translations: [Other respiratory abnormalities] Episodic Other screening for suspected conditions (not mental disorders or infectious disease) (1 source) Encounter for screening mammogram for malignant neoplasm of breast; Translations: [Encounter for screening mammogram for malignant neoplasm of breast] Onset: 11-30-2024 Episodic Superficial injury; contusion (7 sources) Contusion of trunk; Translations: [Contusion of abdominal wall, initial encounter] 11-14-2020 Episodic Unclassified (2 sources) Early satiety; Translations: [Early satiety] Onset: 06-28-2017 Episodic Unclassified (1 source) Unknown / UNK(Unknown) Onset: 06-28-2017 Past or Other Problems Problem Classification Problem Date Documented Da te Episodic/Chronic Spondylosis; intervertebral disc disorders; other back problems (1 source) Pain in thoracic spine; Translations: [Pain in thoracic spine] Onset: 02-22-2024 Episodic Results Test Name Value Interpretation Reference Range Facility Breast imaging reportOrdered By: Skylar Fuentes on 11-25-2024 Study report [facility] Imaging Services [address] [place] [address] SCRN MAMM (CAD)W/PATEL BILAT MR#: [id number] Acct: [id number] Name: NERIS TARANGO Rep #: [id number] : 1955 F 69 From: Ramsey Fuentes DO PCP: Dr. Kesha Phillips MD Status: [facility] Study:SCRN MAMM (CAD)W/PATEL BILAT Date of Exa m: 11/25/24 Exam# [id number] Ordering Dr: Manfred Phillips MD EXAM: SCRN MAMM (CAD)W/PATEL BILAT DATE: 11/25/2024 CLINICAL HISTORY: F, Age 69 y/o , SCREENING TECHNIQUE: Procedure Code: BISMWCADBTOM Modality: MG Procedure: SCRN MAMM (CAD)W/PATEL BILAT COMPARISON: Prior exam(s) dated 05/12/2022, 04/07/2021. FINDINGS: TISSUE DENSITY: There are scattered areas of fibroglandular density. Bilateral Breast Mammographic Findings: No significant masses, calcifications or other abnormalities are identified. Benign-appearing round microcalcifications are seen in both breasts. Stable nodular masslike densities are seen in both breast. Partially obscured, stable, isodense masses are seen in both breasts. BI/SCRN MAMM (CAD)W/PATEL BILAT IMPRESSION: Benign screening mammogram. OVERALL FINAL ASSESSMENT BI-RADS 2: BENIGN RECOMMENDATION: Routine annual follow-up in 1 Year Additional Recommendation none A letter with findings and recommendations will be mailed to the patient. Reading Location: [id number] CC: Dr. Kesha Phillips MD ~ Manager Sterile: Signed [facility] SCRN MAMM (CAD)W/PATEL BILATo n 11-25-2024 SCRN MAMM (CAD)W/PATEL BILAT [facility] Imaging Services [address] [place] [address] SCRN MAMM (CAD)W/PATEL BILAT MR#: [id number] Acct: [id number] Name: NERIS TARANGO Rep #: [id number] : 1955 F 69 From: Skylar Talbot PCP: Dr. Kesha Phillips MD Status: REG CLI Study: SCRN MAMM (CAD)W/PATEL BILAT Date of Exam: 08/14 Exam# [id number] Ordering Dr: Kesha Phillips MD EXAM: SCRN MAMM (CAD)W/PATEL BILAT DATE: 11/25/2024 CLINICAL HISTORY: F, Age 69 y/o , SCREENING TECHNIQUE: Procedure Code: BISMWCADBTOM Modality: MG Procedure: SCRN MAMM (CAD)W/PATEL BILAT COMPARISON: Prior exam(s) dated 05/12/2022, 04/07/2021. FINDINGS: TISSUE DENSITY: There are scattered areas of fibroglandular density. Bilateral Breast Mammographic Findings: No significant masses, calcifications or other abnormalities are identified. Benign-appearing round microcalcifications are seen in both breasts. Stable nodular masslike densities are seen in both breast. Partially obscured, stable, isodense masses are seen in both breasts. BI/SCRN MAMM (CAD)W/PATEL BILAT IMPRESSION: Benign screening mammogram. OVERALL FINAL ASSESSMENT BI-RADS 2: BENIGN RECOMMENDATION: Routine annual follow-up in 1 Year Additional Recommendation none A letter with findings and recommendations will be mailed to the patient. Reading Location: [facility] CC: Dr. Kesha Phillips MD Manager Sterile: Signed Normal [facility] Abdomen Limitedon 04-02-2024 Abdomen Limited [facility] Imaging Services [address] [place], [place] [address] Abdomen Limited MR#: [id number] Acct: [id number] Name: NERIS TARANGO Rep #: [id number] : 1955 F 69 From: Tremayne cervantes MD PCP: Dr. Kesha Phillips MD Status: REG CLI Study: Abdomen Limited Date of Exam: 04/02/24 Exam# [id number] Ordering Dr: Kesha Phillips MD PROCEDURE: ABDOMEN LIMITED REASON FOR EXAM: Liver cyst seen on ECHO COMPARISON: CT dated 11/06/2020. FINDINGS: Liver: Grossly normal size and echotexture. Gallbladder: The patient is status post cholecystectomy. Common bile duct: Normal measuring 7 mm. Pancreas: Visualized portions are sonographically unremarkable. Kidneys: The right kidney measures 10.5 cm in length. Renal parenchymal thicknesses and echotextures are preserved. No hydronephrosis. Aorta: Visualized abdominal aorta is of normal size. IVC: Visualized inferior vena cava is unremarkable. Peritoneal Findings: No ascites identified. US/Abdomen Limited IMPRESSION: No liver cyst identified. The patient is status post cholecystectomy. Reading Location: [facility] CC: Dr. Kesha Phillips MD Manager Sterile: Signed Normal [facility] Clavicleon 01-22-2024 Clavicle [facility] Imaging Services [address] [place] [address] Clavicle MR#: [id number] Acct: [id number] Name: NERIS TARANGO Rep #: [id number] : 1955 F 68 From: Luis lynch DO PCP: Dr. Kesha Phillips MD Status: REG CLI Study: Clavicle Date of Exam: 01/22/24 Exam# [id number] Ordering Dr: Yuli Ramirez AIRLINE SECURITY REPRESENTATIVE-C [id number] EXAM: XR RIGHT CLAVICLE COMPLETE, 2 OR MORE VIEWS CLINICAL INDICATION: PAIN TECHNIQUE: Frontal and lordotic views of the right clavicle. COMPARISON: Right shoulder on the same date. FINDINGS: BONES/JOINTS: Degenerative and/or perhaps chronic posttraumatic hypertrophic changes of the distal clavicle with associated acromioclavicular joint arthrosis. Mild glenohumeral joint arthrosis. Degenerative changes in the spine. No acute fracture. No subluxation. Normal alignment. No sclerotic or destructive changes observed. SOFT TISSUES: No significant abnormality. No soft tissue swelling or gas. No radiopaque foreign body. RAD/Clavicle IMPRESSION: 1. Degenerative and/or perhaps chronic posttraumatic hypertrophic changes of the distal clavicle with associated acromioclavicular joint arthrosis. No acute fracture or dislocation. 2. Mild glenohumeral joint arthrosis. Electronically Signed: Luis Kuhn DO at 23:48 EST , CC: AIRLINE SECURITY REPRESENTATIVENilesh Ramirez; Dr. Kesha Phillips MD Manager Sterile: Signed Normal [facility] Ribs Uni Min 3V w/PA Cheston 01-22-2024 Ribs Uni Min 3V w/PA Chest [facility] Imaging Services [address] [place] [address] Ribs Uni Min 3V w/PA Chest MR#: [id number] Acct: [id number] Name: NERIS TARANGO Rep #: [id number] : 1955 F 68 From: Luis lynch DO PCP: Dr. Kesha Phillips MD Status: REG CLI Study: Ribs Uni Min 3V w/PA Chest Date of Exam: 01/21 Exam# [id number] Ordering Dr: Yuli Ramirez AIRLINE SECURITY REPRESENTATIVE-C [id number] EXAM: XR LEFT RIBS AND AP CHEST, 3 OR MORE VIEWS CLINICAL INDICATION: PLEURODYNIA TECHNIQUE: Frontal and oblique views of the left ribs and frontal view of the chest. COMPARISON: Thoracic spine on the same date. CT chest, 10/14/2023. FINDINGS: LUNGS AND PLEURAL SPACES: Suspect mild right apical scarring which would correlate with the prior examination. Apical pleural calcifications are present. No pneumothorax. No effusion. HEART: No significant abnormality. Cardiac silhouette not enlarged. MEDIASTINUM: Central airways and mediastinal contour are unremarkable. BONES/JOINTS: Degenerative changes in the spine with subtle scoliotic curvature. No evidence of a displaced rib fracture. RAD/Ribs Uni Min 3V w/PA Chest IMPRESSION: 1. No evidence of a displaced rib fracture. 2. Degenerative changes in the spine with subtle scoliotic curvature. 3. Suspect mild right apical scarring which would correlate with the prior examination. Apical pleural calcifications are present. No additional acute pathology. Electronically Signed: Luis Kuhn DO at 23:51 EST , CC: DOMINGO Ramirez; Dr. Kesha Phillips MD Manager Sterile: Signed Normal [facility] Shoulder min 2 Viewson 01-21 Shoulder min 2 Views [facility] Imaging Services [address] [place], [place] [address] Shoulder min 2 Views MR#: [id number] Acct: [id number] Name: NERIS TARANGO Rep #: [id number] : 1955 F 68 From: Luis lynch DO PCP: Dr. Kesha Phillips MD Status: REG CL Study: Shoulder min 2 Views Date of Exam: 01/22/24 Exam# [id number] Ordering Dr: Yuli Ramirez AIRLINE SECURITY REPRESENTATIVESaskiaC [id number] EXAM: XR RIGHT SHOULDER COMPLETE, 2 OR MORE VIEWS CLINICAL INDICATION: PAIN TECHNIQUE: Two or more views of the right shoulder. COMPARISON: Clavicle on the same date. FINDINGS: BONES/JOINTS: Hypertrophic changes of the distal clavicle likely secondary to remote posttraumatic change. Normal acromioclavicular interval. Glenohumeral arthrosis. No evidence of additional acute fracture. Preservation of the joint space. No sclerotic or destructive changes observed. SOFT TISSUES: No significant abnormality. No soft tissue swelling or gas. No radiopaque foreign body. RAD/Shoulder min 2 Views IMPRESSION: Hypertrophic changes of the distal clavicle likely secondary to posttraumatic change. Normal acromioclavicular interval. Electronically Signed: Luis Kuhn DO at 23:52 EST Reading Location ID and State: [facility] / [place] Tel , Service support , CC: JEMMA-Courtney Ramirez; Dr. Kesha Phillips MD Manager Sterile: Signed Normal [facility] Thoracic Spine 3 Viewson Thoracic Spine 3 Views [facility] Imaging Services [address] [place] [address] Thoracic Spine 3 Views MR#: [id number] Acct: [id number] Name: NERIS TARANGO Rep #: [id number] : 1955 F 68 From: Troy Laureano MD PCP: Dr. Kesha Phillips MD Status: REG CL Study: Thoracic Spine 3 Views Date of Exam: 01/22/24 Exam# [id number] Ordering Dr: Yuli Ramirez AIRLINE SECURITY REPRESENTATIVENilesh [id number] STUDY: X-RAY - THORACIC SPINE REASON FOR EXAM: Female, 68 years old. PAIN TECHNIQUE: 3 view(s) of the thoracic spine were obtained. COMPARISON: None. FINDINGS: Normal kyphosis of the thoracic spine. There is no substantial scoliosis. Normal thoracic vertebrae and endplates. Normal disc space heights. The soft tissue structures are unremarkable. RAD/Thoracic Spine 3 Views IMPRESSION: Normal x-ray examination of the thoracic spine. Electronically Signed: Troy Laureano MD at 13:14 EST , CC: DOMINGO Ramirez; Dr. Kehsa Phillips MD Manager Sterile: Signed Normal [facility] Carotid Duplex Ultrasoundon 12-25-2023 Carotid Duplex Ultrasound [facility] Cardiovascular Services [address] [facility] [address] Carotid Duplex Ultrasound 12/25/23 1426 MR#: [id number] Acct: [id number] Name: NERIS TARANGO Rep #: [id number] : 1955 68 From: Sebastien Reza MD Attending Dr: Mathieu Mclain NP-C Status: REG CLI Ordering Dr: Mathieu Mclain NP AIRLINE SECURITY REPRESENTATIVE-C Date: 12/25/23 Location: [facility] Sex: F C Admitted: Reason For Study: Pulsation feeling in neck Rt. Velocities/BP Lt. Velocities/BP Prox CCA 94.1/17.9 cm/sec. Prox CCA 127.1/21.2 cm/sec. Mid CCA 103.9/17.9 cm/sec. Mid CCA 81.5/21.2 cm/sec. Dist CCA 83.1/16.0 cm/sec. Dist CCA 84.6/22.0 cm/sec. Prox ICA 71.0/13.8 cm/sec. Prox ICA 78.4/29.0 cm/sec. Mid ICA 95.2/32.5 cm/sec. Mid ICA 94.8/29.0 cm/sec. Dist ICA 75.2/22.3 cm/sec. Dist ICA 87.5/27.2 cm/sec. Rt. ICA/CCA = 0.9. Lt. ICA/CCA = 1.2. Prox ECA 61.6/9.2 cm/sec. Prox ECA 85.8/13.4 cm/sec. Rt. Vert. 75.4/18.2 cm/sec. Lt. Vert. 53.5/12.8 cm/sec. Right Extracranial There is intimal thickening but no significant atherosclerotic plaque noted in the right common carotid artery. There is intimal thickening but no significant atherosclerotic plaque noted in the right internal carotid artery. There is intimal thickening but no significant atherosclerotic plaque noted in the right external carotid artery. Antegrade flow is noted in the right vertebral artery. Left Extracranial There is intimal thickening but no significant atherosclerotic plaque noted in the left common carotid artery. There is intimal thickening but no significant atherosclerotic plaque noted in the left internal carotid artery. There is intimal thickening but no significant atherosclerotic plaque noted in the left external carotid artery. Antegrade flow is noted in the left vertebral artery. Procedure Carotid Duplex [id number]. This is a Carotid Duplex examination using B-mode, color flow and specral Doppler. The exam was diagnostic. Exam performed in department. VL/Carotid Duplex Ultrasound Interpretation Summary Normal right extracranial internal carotid. Normal left extracranial internal carotid. Patent and antegrade vertebrals bilaterally. Normal caliber vessels bilateral Ordering Physician: Mathieu Mclain Referring Physician: Mathieu Mclain Performed By: Sharad Worley, T 01/01/241942 Date Sebastien Reza MD CC: AIRLINE SECURITY REPRESENTATIVE-C Mathieu Mclain; Dr. Kesha Phillips MD Date Dictated: 12/25/23 1426 Date Transcribed: 01/01/241942 Manager Sterile: Signed Normal [facility] Echo Completeon 12-25-2023 Echo Complete [facility] Cardiovascular [place] [address] Echo Complete 12/25/23 1411 MR#: [id number] Acct: [id number] Name: NERIS TARANGO Rep #: [id number] : 1955 68 From: Billy Ray MD Attending Dr: Mathieu Mclain AIRLINE SECURITY REPRESENTATIVE-C Status: REG CLI Ordering Dr: Mathieu Mclain AIRLINE SECURITY REPRESENTATIVE AIRLINE SECURITY REPRESENTATIVE-C Date: 12/25/23 Location: [facility] Sex: F C Admitted: Reason For Study: MITRAL REGURGITATION Procedure This was a 2D Doppler, Color Flow transthoracic echocardiogram. Exam performed in department. Left Ventricle Normal LV size. The left ventricular ejection fraction is 60 %. No regional wall motion abnormalities noted. Right Ventricle Normal RV size. Normal systolic function. Atria Normal left atrium. Normal right atrium. Mitral Valve Mild focal mitral valve calcification of the anterior leaflet. Mild-Moderate (1-2+) eccentric mitral valve insufficiency. Tricuspid Valve Normal tricuspid valve. Mild (1+) tricuspid valve insufficiency. Pulmonary artery systolic pressure is 31 mmHg. Aortic Valve Trisinus/trileaflet aortic valve. Mild (1+) aortic valve insufficiency. Pulmonic Valve Normal pulmonic valve. Great Vessels Normal aortic root. The pulmonary artery is normal size. Inferior vena cava collapse with respiration. Pericardium/Pleural No pericardial effusion. MMode/2D Measurements Calculations LVIDd: 4.2 cm IVSd: 0.98 cm LVOT diam: 2.0 cm LVIDs: 2.5 cm LVPWd: 1.0 cm LVOT area: 3.2 cm2 RVDd: 2.8 cm FS: 41.5 % asc Aorta Diam: 3.2 cm LAV(MOD-bp): 40.5 ml LVAd ap4: 21.4 cm2 LAV(MOD-bp) Indexed: 22.7 ml/m2 LVLd ap4: 6.9 cm LAV(MOD-sp2): 42.0 ml EDV(MOD-sp4): 53.9 ml LAV(MOD-sp4): 38.7 ml EDV(sp4-el): 56.3 ml LVAs ap4: 11.3 cm2 LVLs ap4: 6.1 cm ESV(MOD-sp4): 18.2 ml ESV(sp4-el): 17.7 ml EF(MOD-sp4): 66.2 % EF(sp4-el): 68.6 % LVAd ap2: 18.8 cm2 SV(MOD-sp4): 35.7 ml SV(MOD-sp2): 26.3 ml LVLd ap2: 6.8 cm SI(MOD-sp4): 20.0 ml/m2 SI(MOD-sp2): 14.7 ml/m2 EDV(MOD-sp2): 42.0 ml EDV(sp2-el): 43.8 ml LVAs ap2: 10.5 cm2 LVLs ap2: 6.0 cm ESV(MOD-sp2): 15.7 ml ESV(sp2-el): 15.6 ml EF(MOD-sp2): 62.6 % SV(sp4-el): 38.6 ml Ao sinus diam: 2.[address] Junction: 2.7 cm LA dimension(2D): 3.6 cm LA A4 area: 16.1 cm2 RA A4 area: 11.0 cm2 TAPSE: 2.2 cm Time Measurements MV dec time: 0.19 sec Doppler Measurements Calculations MV E max katty: 68.2 cm/sec Lat Peak E' Katty: 7.6 cm/sec Med Peak E' Katty: 9.1 cm/sec MV A max katty: 103.0 cm/sec E/E' lat: 9.0 E/E' med: 7.5 MV E/A: 0.66 MV dec slope: 367.9 cm/sec2 Ao V2 max: 134.3 cm/sec AI max katty: 347.6 cm/sec Ao max P.2 mmHg AI max P.4 mmHg Ao V2 mean: 93.3 cm/sec AI dec slope: 265.0 cm/sec2 Ao mean P.9 mmHg AI P1/2t: 384.2 msec Ao V2 VTI: 24.8 cm AV (velocity ratio): 0.81 IWONA(I,D): 2.6 cm2 IWONA(V,D): 2.4 cm2 LV V1 max: 99.7 cm/sec SV(LVOT): 64.9 ml PA V2 max: 90.0 cm/sec LV V1 max P.0 mmHg PA max PG (full): 0.91 mmHg LV V1 mean P.3 mmHg LV V1 mean: 72.1 cm/sec LV V1 VTI: 20.0 cm TR max katty: 264.1 cm/sec TR max P.9 mmHg ECHO/Echo Complete Interpretation Summary Normal LV size. The left ventricular ejection fraction is 60 %. Mild-Moderate (1-2+) eccentric mitral valve insufficiency. Mild (1+) aortic valve insufficiency. Possible liver cyst Ordering Physician: Mathieu Mclain Referring Physician: Mathieu Mclain Performed By: Sarah James RDCS and Student 12/25/23 1613 Date Billy Ray MD CC: AIRLINE SECURITY REPRESENTATIVE-C Mathieu Mclain; Dr. Kesha Phillips MD Date Dictated: 12/25/23 141 Date Transcribed: 12/25/23 1613 Manager Sterile: Signed Normal [facility] Absolute lymphocyte counton 01-21-2022 Lymphocytes Auto (Unsp spec) [#/Vol] 1.63 10*3/uL 0.83-4.51 [facility] Work Phone: Basophil percentageon 2021 Basophils/100 WBC (Bld) 0.3 % 0-1 [facility] Work Phone: Chloride [Moles/Vol] 108 mmol/L 98-107 [facility] Work Phone: [phone] Eosinophils/100 WBC (Bld) 2.3 % 0-5 [facility] Work Phone: Glucose [Mass/Vol] 94 mg/dL 74-106 [facility] Work Phone: [phone] Neutrophils (Bld) [#/Vol] 3.7 10*3/uL 2.0-7.7 [facility] Work Phone: Neutrophils/100 WBC (Bld) 61.8 % 47-70 [facility] Work Phone: Potassium [Moles/Vol] 4.0 mmol/L 3.5-5.1 [facility] Work Phone: Sodium [Moles/Vol] 141 mmol/L 136-145 [facility] Work Phone: WBC (Bld) [#/Vol] 6.0 10*3/uL 4.4-11.0 [facility] Work Phone: Blood erythrocytes count (nu mber/volume)on 01-21-2022 RBC (Bld) [#/Vol] 4.48 10*6/uL 4.2-5.4 [facility] Work Phone: Blood hemoglobin measurement (mass/volume)on 01-21-2022 Hemoglobin (Bld) [Mass/Vol] 13.3 g/dL 12.0-15.0 [facility] Work Phone: Blood lymphocytes/100 leukoc yteson 01-21-2022 Lymphocytes/100 WBC (Bld) 27.0 % 19-41 [facility] Work Phone: Blood monocytes/100 leukocyt eson 01-21-2022 Monocytes/100 WBC (Bld) 8.4 % 0-10 [facility] Work Phone: Blood platelet mean volumeon 01-21-2022 Platelet mean volume (Bld) [Entitic vol] 9.7 fL 6.2-12.0 [facility] Work Phone: Determination of erythrocyte mean corpuscular volume (MCV)on 01-21-2022 MCV (RBC) [Entitic vol] 94.0 fL 81-99 [facility] Work Phone: Hematocrit Auto (Bld) [Volum e fraction]on 01-21-2022 Hematocrit (Bld) [Volume fraction] 42.1 % 37-47 [facility] Work Phone: Laboratory - Chemistry and C hemistry - challengeon 01-21-2022 CO2 [Moles/Vol] 30.0 mmol/L 21.0-32.0 [facility] Work Phone: Magnesium [Mass/Vol] 2.6 mg/dL 1.6-2.6 [facility] Work Phone: [phone] Urea nitrogen/Creatini ne [Mass ratio] 28.6 mg/mg 10-20 [facility] Work Phone: Laboratory - Hematology and Cell countson 01-21-2022 Erythrocyte distribution width (RBC) [Entitic vol] 44.9 fL 35.1-43.9 [facility] Work Phone: [phone] Erythrocyte distribution width (RBC) [Ratio] 13.1 % 11.6-14.6 [facility] Work Phone: [phone] Immature granulocytes/100 WBC (Bld) 0.200 % 0.0-0.9 [facility] Work Phone: Comment on above: IG% - Immature Granu locytes (promyelocytes, myelocytes and metamyelocytes) > 1% indicates that a LEFT SHIFT is Present. MCH (RBC) [Entitic mass] 29.7 pg 27.0-32.0 [facility] Work Phone: Nucleated RBC/100 WBC (Bld) [Ratio] 0 % 0-5 [facility] Work Phone: MCHC Auto (RBC) [Mass/Vol]on 01-21-2022 MCHC (RBC) [Mass/Vol] 31.6 g/dL 32-36 [facility] Work Phone: No Panel Informationon 01-21 Estimated GFR (MDRD) Amer 88 mL/min >60 [facility] Work Phone: Comment on above: GFR Calc Estimated GFR (MDRD) Non-Af Amer 73 mL/min >60 [facility] Work Phone: Comment on above: Non- GFR Calc Thyroid Stimulating Hormone (TSH) 3.00 uIU/mL 0.358-3.74 [facility] Work Phone: Platelets bldon 01-21-2022 Platelets (Bld) [#/Vol] 248 10*3/uL 150-450 [facility] Work Phone: Serum or plasma calcium wayne urement (mass/volume)on 01-21-2022 Calcium [Mass/Vol] 9.6 mg/dL 8.5-10.1 [facility] Work Phone: Serum or plasma creatinine m easurement (mass/volume)on 01-21-2022 Creatinine [Mass/Vol] 0.84 mg/dL 0.55-1.02 [facility] Work Phone: Comment on above: The validity of the calculated GFR & GFRAA in patients over 70 years has not been determined. Clinical correlation is essential. Serum or plasma urea nitroge n measurement (mass/volume)on 01-21-2022 Urea nitrogen [Mass/Vol] 24 mg/dL 7-18 [facility] Work Phone: Thin prep Papanicolaou smear with manual screeningon 01-21-2022 Thin prep Papanicolaou smear with manual screening 3 5-15 [facility] Work Phone: Absolute lymphocyte counton 05-18-2021 Lymphocytes Auto (Unsp spec) [#/Vol] 4.10 10*3/uL 0.83-4.51 [facility] Work Phone: Basophil percentageon 2021 Basophils/100 WBC (Bld) 0.6 % 0-1 [facility] Work Phone: Bilirubin [Mass/Vol] 0.20 mg/dL 0.20-1.00 [facility] Work Phone: Comment on above: For patients on eltr ombopag therapy, use of Dimension [place] TBIL is not recommended. Chloride [Moles/Vol] 106 mmol/L 98-107 [facility] Work Phone: Eosinophils/100 WBC (Bld) 1.1 % 0-5 [facility] Work Phone: Glucose [Mass/Vol] 154 mg/dL 74-106 [facility] Work Phone: Comment on above: Fasting Glucose resu lt greater than or equal to 126 mg/dL suggests DIABETES MELLITUS per A.D.A. criteria. Neutrophils (Bld) [#/Vol] 5.6 10*3/uL 2.0-7.7 [facility] Work Phone: Neutrophils/100 WBC (Bld) 53.1 % 47-70 [facility] Work Phone: Potassium [Moles/Vol] 2.9 mmol/L 3.5-5.1 [facility] Work Phone: [phone] Protein [Mass/Vol] 7.8 g/dL 6.4-8.2 [facility] Work Phone: Sodium [Moles/Vol] 141 mmol/L 136-145 [facility] Work Phone: WBC (Bld) [#/Vol] 10.6 10*3/uL 4.4-11.0 [facility] Work Phone: Blood erythrocytes count (nu mber/volume)on 05-18-2021 RBC (Bld) [#/Vol] 4.44 10*6/uL 4.2-5.4 [facility] Work Phone: Blood hemoglobin measurement (mass/volume)on 05-18-2021 Hemoglobin (Bld) [Mass/Vol] 13.7 g/dL 12.0-15.0 [facility] Work Phone: Blood lymphocytes/100 leukoc yteson 05-18-2021 Lymphocytes/100 WBC (Bld) 38.5 % 19-41 [facility] Work Phone: Blood monocytes/100 leukocyt eson 05-18-2021 Monocytes/100 WBC (Bld) 5.8 % 0-10 [facility] Work Phone: Blood platelet mean volumeon 05-18-2021 Platelet mean volume (Bld) [Entitic vol] 9.7 fL 6.2-12.0 [facility] Work Phone: Determination of erythrocyte mean corpuscular volume (MCV)on 05-18-2021 MCV (RBC) [Entitic vol] 91.0 fL 81-99 [facility] Work Phone: Direct bilirubinon 2 Bilirubin.direct [Mass/Vol] 0.09 mg/dL 0.00-0.30 [facility] Work Phone: Hematocrit Auto (Bld) [Volum e fraction]on 05-18-2021 Hematocrit (Bld) [Volume fraction] 40.4 % 37-47 [facility] Work Phone: Laboratory - Chemistry and C hemistry - challengeon 05-18-2021 ALP [Catalytic activity/Vol] 102 U/L 45-117 [facility] Work Phone: ALT [Catalytic activity/Vol] 64 U/L 13-56 [facility] Work Phone: CO2 [Moles/Vol] 25.0 mmol/L 21.0-32.0 [facility] Work Phone: Globulin (S) [Mass/Vol] 3.8 g/dL 2.2-4.2 [facility] Work Phone: Urea nitrogen/Creatini ne [Mass ratio] 14.0 mg/mg 10-20 [facility] Work Phone: Laboratory - Hematology and Cell countson 05-18-2021 Erythrocyte distribution width (RBC) [Entitic vol] 42.5 fL 35.1-43.9 [facility] Work Phone: Erythrocyte distribution width (RBC) [Ratio] 12.9 % 11.6-14.6 [facility] Work Phone: Immature granulocytes/100 WBC (Bld) 0.900 % 0.0-0.9 [facility] Work Phone: Comment on above: IG% - Immature Granu locytes (promyelocytes, myelocytes and metamyelocytes) > 1% indicates that a LEFT SHIFT is Present. MCH (RBC) [Entitic mass] 30.9 pg 27.0-32.0 [facility] Work Phone: Nucleated RBC/100 WBC (Bld) [Ratio] 0 % 0-5 [facility] Work Phone: MCHC Auto (RBC) [Mass/Vol]on 05-18-2021 MCHC (RBC) [Mass/Vol] 33.9 g/dL 32-36 [facility] Work Phone: No Panel Informationon 05-18 Estimated Creatinine Clearance Calc 53.58 ml/min [facility] Work Phone: Estimated GFR (MDRD) Amer 66 mL/min >60 [facility] Work Phone: Comment on above: GFR Calc Estimated GFR (MDRD) Non-Af Amer 55 mL/min >60 [facility] Work Phone: Comment on above: Non- GFR Calc Troponin I High Sensitivity < 3 pg/mL 3.0-54.0 [facility] Work Phone: Comment on above: Please Note: New [place] t Units and Gender Specific Reference Ranges. For more information see Policy Stat Procedure [place] High Sensitivity Troponin (TNIH) and attachments. Platelets bldon 05-18-2021 Platelets (Bld) [#/Vol] 278 10*3/uL 150-450 [facility] Work Phone: Serum or plasma albumin wayne urement (mass/volume)on 05-18-2021 Albumin [Mass/Vol] 4.0 g/dL 3.2-5.0 [facility] Work Phone: Serum or plasma calcium wayne urement (mass/volume)on 05-18-2021 Calcium [Mass/Vol] 9.2 mg/dL 8.5-10.1 [facility] Work Phone: Serum or plasma creatinine m easurement (mass/volume)on 05-18-2021 Creatinine [Mass/Vol] 1.07 mg/dL 0.55-1.02 [facility] Work Phone: Comment on above: The validity of the calculated GFR & GFRAA in patients over 70 years has not been determined. Clinical correlation is essential. Serum or plasma urea nitroge n measurement (mass/volume)on 05-18-2021 Urea nitrogen [Mass/Vol] 15 mg/dL 7-18 [facility] Work Phone: Thin prep Papanicolaou smear with manual screeningon 05-18-2021 Thin prep Papanicolaou smear with manual screening 36 U/L 15-37 [facility] Work Phone: Thin prep Papanicolaou smear with manual screening 10 5-15 [facility] Work Phone: CNOVon 11-06-2020 CNOV Office Visit (FAMPWS ) NERIS TARANGO ([id number]) 1955 F Date Time Provider Department 11/06/20 4:20 PM CORINA SORTO During your visit today, we recorded the following information about you: Pulse Respiration Blood pressure Weight 80/minute 18/minute 138/76 59.9 kg Corina Sorto MD 11/06/2020 4:37 PM Signed Chief Complaint Patient presents with: Abdominal Pain: pain after getting hit with 45lb supervisor concrete pipe plant on Monday evening HPI Neris Tarango is a 65 year old female who presents here today for Above Complaints.. States that she was getting a 45 lb supervisor concrete pipe plant out of a truck 5 days ago and it slid into her abdomen. Did not fall back and this did not land on her abdomen. She was able to push the senior applications developer back onto the truck. Had some discomfort after this injury, but was able to drive home. The next day pain significantly worsened and has continued to worsen. Described as sharp/pinching pain in her LLQ with radiation around to her back. Currently 07/30. Not taking anything OTC for pain or applying ice. Denies bruising, change in appetite, diarrhea, hematochezia, melena. Has not been evaluated in the ER as instructed on 11/04 and 11/05. Past medical history, appointments, medications, allergies reviewed. 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 - Urinary calculus, unspecified Renal stones Previous Surgical History PAST SURGICAL HISTORY Procedure Laterality Date - CHOLECYSTECTOMY 03/18/10 - COLONOSCOP W/ OR W/O BRSH SPEC 04/14/2017 Colonoscopy - COLONOSCOPY W/BX 03/02/10 Random Biopsies-repeat in - CYSTO.PANENDO 2004 Cystoscopy kidney stone - EGD W/O BRSH SPECIMEN W/BX 03/02/10 Gastric polyps - EGD W/O OR W/BRUSH/WASH 04/14/2017 EGD - LAPAROSCOPY, SURGICAL, APPENDECTOMY 03/18/10 - REPAIR INTERCARP/CARP-METACARP JT Left 06/15/2018 Left thumb CMC arthroplasty with LRTI, flexor carpi radialis Family History FAMILY HISTORY Problem Relation Age of Onset - Arthritis Mother had joint replacements - Hypertension Father - Stroke Father Patient Allergies ALLERGIES Allergen Reactions - Adhesive Tape (Daly* Itching - Codeine GI Upset - Gluten Rash, Vomiting - [place] [Hydrocodone-* Intolerance Decreased heart rate - Voltaren [Diclofena* GI Upset - Zithromax [Azithrom* GI Upset nausea Current Medications Current Outpatient Medications on File Prior to Visit Medication Sig - albuterol HFA (PROAIR HFA) 90 mcg/actuation inhaler Inhale 2 Puffs as instructed every 4 hours as needed for Wheezing/Shortness of Breath. - THERAPEUTIC MULTIVITAMIN TAB Take one(1) tablet daily. - cefADROxil (DURICEF) 500 mg capsule Take 1 capsule by mouth twice daily. - Etodolac 500 mg tablet Take 1 tablet by mouth twice daily. - Nebulizer 1 Each every 4 hours as needed. NEBULIZER FOR HOME USE. DX: J45.41 - albuterol (PROVENTIL) 2.5 mg /3 mL (0.083 %) nebulizer solution Use 3 mL via nebulizer every 4 hours as needed for Wheezing/Shortness of Breath. Use over 5-15minutes. No current facility-administered medications on file prior to visit. Social History Social History Tobacco Use - Smoking status: Never Smoker - Smokeless tobacco: Never Used Substance Use Topics - Alcohol use: Yes Alcohol/week: 2.5 standard drinks Types: 1 Mixed Drinks per week - Drug use: No Review of Symptoms REVIEW OF SYSTEMS GENERAL: No weight loss, malaise or fevers GI: See HPI EXAM: BP 138/76 Pulse 80 Resp 18 Wt 59.9 kg (132 lb) BMI 20.08 kg/m? General Appearance: Patient appears uncomfortable sitting in chair. Stating her yoga pants hurt abdomen where they compress. Skin: Skin color, texture, turgor normal, no suspicious rashes or lesions. Abdomen: Abdomen soft. Bowel sounds normal. Positive findings: tenderness marked and involuntary guarding LLQ and suprapubic. Health Maintenance List SPIROMETRY Never done HEPATITIS C SCREENING Never done HIV SCREENING Never done ONE PNEUMOVAX PRIOR TO AGE 65 Never done PAP TESTING Never done HPV TESTING Never done SHINGRIX VACCINE(1 of 2) Never done DEPRESSION SCREENING due on 04/06/2019 ANNUAL PCP TEAM CHRONIC DISEASE VISIT due on 12/15/2019 DIABETES SCREEN due on 03/20/2020 MAMMOGRAM due on 04/12/2020 INFLUENZA(1) due on 10/21/2020 DTAP,TDAP,TD(2 - Td or Tdap) due on 10/17/2022 LIPID SCREEN due on 04/06/2023 COLORECTAL CANCER SCREENING due on 04/14/2027 COVID-19 VACCINE Completed MENINGOCOCCAL CONJUGATE Aged Out ASSESSMENT/PLAN: 1. LLQ abdominal pain - ICD9: 789.04, ICD10: R10.32 Discussed with patient that I do not have a way to obtain STAT CT scan at 4pm on a Monday. Again recommended she go to [facility] ED to rule out inte (more content not included)... [facility] (FAMPWS[facility] NERIS TARANGO ([id number]) 1955 F Date Time Provider Department 11/05/20 [facility] your visit today, we recorded the following information about you: Manish Delgado RN 11/05/2020 1:48 PM Signed Patient calling back today to say she did not go to ER yesterday as instructed, but is requesting appointment to be seen tomorrow by any provider for intermittent abdominal pain. Today her pain is 6/10 and she is moaning as she speaks on the phone. She states she refuses to go to ER because she will be misdiagnosed. Attempted to schedule appointment for her but her insurance information created hard stop for scheduling. Transferred to scheduler maintenance for further assistance. Manish Sorto MD 11/05/2020 2:06 PM Signed Agree with ER evaluation as recommended by Dr. Mcelroy yesterday. Mg Fox Ma 11/05/2020 2:34 PM Signed Spoke with patient and notified. Patient again refusing ER and wants to keep scheduled appointment tomorrow. Allergies As of Date: 11/05/2020 Noted Allergy Reaction ADHESIVE TAPE (ROSINS) 02/18/2010 9 - Itching CODEINE 04/21/2005 8 - GI Upset GLUTEN 06/06/2018 2 - Rash 11 - Vomiting NORCO (HYDROCODONE-ACETAMINOPHEN) 06/25/2018 5 - Intolerance Comments: Decreased heart rate VOLTAREN (DICLOFENAC SODIUM) 07/07/2005 8 - GI Upset ZITHROMAX (AZITHROMYCIN) 04/06/2007 8 - GI Upset Comments: nausea Date Reviewed: 12/14/2018 Reviewed by: Brianne Hu Ma - Fully Assessed Reason for Visit: Patient Update [1234] Prescriptions as of 11/05/2020 - albuterol HFA (PROAIR HFA) 90 mcg/actuation inhaler Inhale 2 Puffs as instructed every 4 hours as needed for Wheezing/Shortness of Breath. - cefADROxil (DURICEF) 500 mg capsule Take 1 capsule by mouth twice daily. - Etodolac 500 mg tablet Take 1 tablet by mouth twice daily. - Nebulizer 1 Each every 4 hours as needed. NEBULIZER FOR HOME USE. DX: J45.41 - albuterol (PROVENTIL) 2.5 mg /3 mL (0.083 %) nebulizer solution Use 3 mL via nebulizer every 4 hours as needed for Wheezing/Shortness of Breath. Use over 5-15minutes. - THERAPEUTIC MULTIVITAMIN TAB Take one(1) tablet daily. 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] 03/17/2017 Asthmatic bronchitis [J45.909] 12/04/2017 Primary localized osteoarthrosis of left hand [*06/06/2018 Primary osteoarthritis of first carpometacarpal*07/17/2018 Encounter Status:Closed by MANISH DELGADO RN on 11/05/20 [facility] CNTHERAPYon 09-13-2018 CNTHERAPY OT/PT/Speech Visit ( [facility]) NERIS TARANGO ([id number]) 1955 F Date Time Provider Department 09/13/18 3:45 PM [facility] Date Time Provider Department Center 09/13/2018 3:45 PM [id number] IRBY [facility] Reason for Visit: OT Discharge [750] Primary Visit Diagnosis:Primary osteoarthritis of first carpometacarpal joint of left hand [M18.12] Allergies As of Date: 09/13/2018 Noted Allergy Reaction ADHESIVE TAPE (ROSINS) 02/18/2010 9 - Itching CODEINE 04/21/2005 8 - GI Upset GLUTEN 06/06/2018 2 - Rash 11 - Vomiting NORCO (HYDROCODONE-ACETAMINOPHEN) 06/25/2018 5 - Intolerance Comments: Decreased heart rate VOLTAREN (DICLOFENAC SODIUM) 07/07/2005 8 - GI Upset ZITHROMAX (AZITHROMYCIN) 04/06/2007 8 - GI Upset Comments: nausea Date Reviewed: 08/14/2018 Reviewed by: Nicolas Florence - Fully Assessed Prescriptions as of 09/13/2018 Sig: COMPOUNDED PRESCRIPTION 1 Each every 4 hours as neede* ALBUTEROL SULFATE 2.5 MG/3 ML* Use 3 mL via nebulizer every * ALBUTEROL SULFATE HFA 90 MCG/* Inhale 2 Puffs as instructed * THERAPEUTIC MULTIVITAMIN TABL* Take one(1) tablet daily. Progress Notes: Cherise Irby OT/L 09/13/2018 5:02 PM Signed Episode Visit Count: 7 Therapist That Will Oversee The Plan Of Care: Cristobal Start of Care Date: 07/17/18 Onset Date: 06/15/18 Plan of Care Certification Date: 07/17/18 Patient Identified by Name and Date of : Yes REHABILITATION AND SPORTS THERAPY OCCUPATIONAL THERAPY DISCONTINUANCE OF CARE PLAN OF CARE UPDATE: Assessment: Neris Tarango is discontinued from Occupational Therapy services due to goal achievement. and maximal benefit.. Patient was seen for 7 visits from Start of Care Date: 07/17/18 to 09/13/2018 and treatment included: Therapeutic exercise, Manual therapy, Self-fpc management, Modalities and Custom orthosis fabrication. Patient will report a good understanding of diagnosis and OT recommendations for progression of program PROGRESSING 08/14 MET 09/13 Patient will increase AROM of left wrist and thumb to WNL in order to be able to perform fine motor tasks. PROGRESSING 08/14 Patient will report a good understanding of edema control techniques PROGRESSING 08/14 Patient will report a good understanding of the use of modalities to help manage discomfort and promote healing PROGRESSING 08/14 Patient will independently demonstrate scar massage/management in order to decrease scar adherence by discharge PROGRESSING 08/14 Patient will have functional mold puller and pinch strength as evidenced by I ADL IADL MET 09/13 PLAN FOR NEXT VISIT: discharged today SUBJECTIVE: Pt still reports she has some discomfort and has some difficulty with certain daily activities Pain: Pain Pain Level: 1 OBJECTIVE MEASURES WITH LEVEL OF FUNCTION: Hand Skin / Wound: Scar Scar: Non-tender Edema Location: left hand Edema Description: Mild Edema Measurements: Wrist (DWC) (cm);DPC (cm) L Wrist (DWC) (cm): 15.8 L Thumb P1 (cm): 6.2 cm L Thumb IP Joint (cm): 6.1 cm Thumb AROM: Left Limitation Limitations as noted: Left Hand Strength L Sample Patternmaker Position 2 (lbs): 32 lbs L Lateral Pinch (lbs): 5.5 lbs L Tip Pinch (lbs): 5 lbs UE AROM L Wrist Extension: 50 Degrees L Wrist Flexion: 40 Degrees L Wrist Radial Deviation: 15 Degrees L Wrist Ulnar Deviation: 30 Degrees Hand AROM L Thumb MP Flexion : 30 Degrees L Thumb IP Flexion : 50 Degrees L Thumb Radial Abduction: 60 Degrees L Thumb Palmar Abduction: 60 Degrees UE and Cervical Strength L Lateral Pinch (lbs): 5.5 lbs L Tip Pinch (lbs): 5 lbs TREATMENT: Therapeutic Exercise: 1: wrist flex, ext and deviation 2: thumb flex/ext opposition radial and palmar abduction and IP blocking 3: Instructed in continuing HEP 4: issued medium soft putty for progression as able to exercises Skilled Intervention: Patient was educated in proper exercise technique and purpose for exercises. Skilled judgment was provided in selection of appropriate interventions. Billing: Kristy: Therapeutic Exercise ([id number]): 1:1 time:30 minutes (2 units: 23-37 mins) Total time: 30 minutes Cherise Irby OT/[facility] PROGRESSon 09-13-2018 PROGRESS HNO ID: [id number] Author: Cherise Irby Service: ? Author Type: Occupational Therapist Type: Progress Notes Filed: 09/13/2018 5:02 PM Note Text: Episode Visit Count: 7 Therapist That Will Oversee The Plan Of Care: Cristobal Start of Care Date: 07/17/18 Onset Date: 06/15/18 Plan of Care Certification Date: 07/17/18 Patient Identified by Name and Date of : Yes REHABILITATION AND SPORTS THERAPY OCCUPATIONAL THERAPY DISCONTINUANCE OF CARE PLAN OF CARE UPDATE: Assessment: Neris Tarango is discontinued from Occupational Therapy services due to goal achievement. and maximal benefit.. Patient was seen for 7 visits from Start of Care Date: 07/17/18 to 09/13/2018 and treatment included: Therapeutic exercise, Manual therapy, Self-fpc management, Modalities and Custom orthosis fabrication. Patient will report a good understanding of diagnosis and OT recommendations for progression of program PROGRESSING 08/14 Patient will increase AROM of left wrist and thumb to WNL in order to be able to perform fine motor tasks. PROGRESSING 08/14 Patient will report a good understanding of edema control techniques PROGRESSING 08/14 Patient will report a good understanding of the use of modalities to help manage discomfort and promote healing PROGRESSING 08/14 Patient will independently demonstrate scar massage/management in order to decrease scar adherence by discharge PROGRESSING 08/14 Patient will have functional mold puller and pinch strength as evidenced by I ADL IADL 09/13 PLAN FOR NEXT VISIT: discharged today SUBJECTIVE: Pt still reports she has some discomfort and has some difficulty with certain daily activities Pain: Pain Pain Level: 1 OBJECTIVE MEASURES WITH LEVEL OF FUNCTION: Hand Skin / Wound: Scar Scar: Non-tender Edema Location: left hand Edema Description: Mild Edema Measurements: Wrist (DWC) (cm);DPC (cm) L Wrist (DWC) (cm): 15.8 L Thumb P1 (cm): 6.2 cm L Thumb IP Joint (cm): 6.1 cm Thumb AROM: Left Limitation Limitations as noted: Left Hand Strength L Sample Patternmaker Position 2 (lbs): 32 lbs L Lateral Pinch (lbs): 5.5 lbs L Tip Pinch (lbs): 5 lbs UE AROM L Wrist Extension: 50 Degrees L Wrist Flexion: 40 Degrees L Wrist Radial Deviation: 15 Degrees L Wrist Ulnar Deviation: 30 Degrees Hand AROM L Thumb MP Flexion : 30 Degrees L Thumb IP Flexion : 50 Degrees L Thumb Radial Abduction: 60 Degrees L Thumb Palmar Abduction: 60 Degrees UE and Cervical Strength L Lateral Pinch (lbs): 5.5 lbs L Tip Pinch (lbs): 5 lbs TREATMENT: Therapeutic Exercise: 1: wrist flex, ext and deviation 2: thumb flex/ext opposition radial and palmar abduction and IP blocking 3: Instructed in continuing HEP 4: issued medium soft putty for progression as able to exercises Skilled Intervention: Patient was educated in proper exercise technique and purpose for exercises. Skilled judgment was provided in selection of appropriate interventions. Brodying: Kristy: Therapeutic Exercise ([id number]): 1:1 time:30 minutes (2 units: 23-37 mins) Total time: 30 minutes Cherise Irby OT/BOAZ [facility] CNTHERAPYon 08-14-2018 CNTHERAPY OT/PT/Speech Visit ( [facility] NERIS TARANGO ([id number]) 1955 F Date Time Provider Department 08/14/18 1:45 PM CHERISE IRBY (OT) [facility] Date Time Provider Department Center 08/14/2018 1:45 PM [id number] IRBY *[facility] Reason for Visit: OT Progress Note [1598] Reason For Visit History Recorded Primary Visit Diagnosis:Primary osteoarthritis of first carpometacarpal joint of left hand [M18.12] Allergies As of Date: 08/14/2018 Noted Allergy Reaction ADHESIVE TAPE (ROSINS) 02/18/2010 9 - Itching CODEINE 04/21/2005 8 - GI Upset GLUTEN 06/06/2018 2 - Rash 11 - Vomiting NORCO (HYDROCODONE-ACETAMINOPHEN) 06/25/2018 5 - Intolerance Comments: Decreased heart rate VOLTAREN (DICLOFENAC SODIUM) 07/07/2005 8 - GI Upset ZITHROMAX (AZITHROMYCIN) 04/06/2007 8 - GI Upset Comments: nausea Date Reviewed: 08/14/2018 Reviewed by: Nicolas Florence - Fully Assessed Prescriptions as of 08/14/2018 Sig: COMPOUNDED PRESCRIPTION 1 Each every 4 hours as neede* ALBUTEROL SULFATE 2.5 MG/3 ML* Use 3 mL via nebulizer every * ALBUTEROL SULFATE HFA 90 MCG/* Inhale 2 Puffs as instructed * THERAPEUTIC MULTIVITAMIN TABL* Take one(1) tablet daily. Progress Notes: Cherise Irby OT/[facility] 08/14/2018 2:41 PM Signed Episode Visit Count: 4 Therapist That Will Oversee The Plan Of Care: Cristobal Start of Care Date: 07/17/18 Onset Date: 06/15/18 Plan of Care Certification Date: 07/17/18 Patient Identified by Name and Date of : Yes REHABILITATION AND SPORTS THERAPY OCCUPATIONAL THERAPY PROGRESS REPORT PLAN OF CARE UPDATE: Assessment: Neris Tarango exhibits difficulty with sensitivity over scar and improvements in AROM . She continues to be limited with weight bearing, gripping, pinching, pushing and carrying. She is progressing slower than expected towards her therapy goals as demonstrated by: documented subjective information on progress. She will benefit from continued skilled therapy requiring exercises education modalities and manual techniques in order to improve function. Functional gains: Increased independence with HEP Increased ROM Patient will report a good understanding of diagnosis and OT recommendations for progression of program PROGRESSING 08/14 Patient will increase AROM of left wrist and thumb to WNL in order to be able to perform fine motor tasks. PROGRESSING 08/14 Patient will report a good understanding of edema control techniques PROGRESSING 08/14 Patient will report a good understanding of the use of modalities to help manage discomfort and promote healing PROGRESSING 08/14 Patient will independently demonstrate scar massage/management in order to decrease scar adherence by discharge PROGRESSING 08/14 Patient will have functional mold puller and pinch strength as evidenced by I ADL IADL Planned Interventions, Frequency, and Duration: , Total Number of Visits Planned: 3 Patient to be seen for Modalities;Therapeutic exercise;Manual therapy;Self-fpc managementFluidotherapy PLAN FOR NEXT VISIT: assess tolerance to putty and sensory exercises SUBJECTIVE: 8 weeks s/p CMC arthroplasty saw MD just prior to visit here reports she is feeling better Pain: Pain Pain Level: 4 Pain Location: Hand - Left;Thumb - Left OBJECTIVE MEASURES WITH LEVEL OF FUNCTION: Hand Edema Location: left hand Edema Description: Mild Strength: Dynamometer / Sample Patternmaker;Pinch Meter R Sample Patternmaker Position 2 (lbs): 59 lbs L Sample Patternmaker Position 2 (lbs): 15 lbs R Lateral Pinch (lbs): 15 lbs R Tripod Pinch (lbs): 13 lbs R Tip Pinch (lbs): 12 lbs L Lateral Pinch (lbs): 5 lbs L Tripod Pinch (lbs): 4 lbs L Tip Pinch (lbs): 4 lbs UE AROM L Wrist Extension: 45 Degrees L Wrist Flexion: 30 Degrees Hand AROM L Thumb MP Flexion : 30 Degrees L Thumb IP Flexion : 45 Degrees L Thumb Radial Abduction: 55 Degrees L Thumb Palmar Abduction: 55 Degrees UE and Cervical Strength R Lateral Pinch (lbs): 15 lbs R Tip Pinch (lbs): 12 lbs L Lateral Pinch (lbs): 5 lbs L Tip Pinch (lbs): 4 lbs TREATMENT: Therapeutic Exercise: 1: wrist flex, ext and deviation 2: thumb flex/ext opposition radial and palmar abduction and IP blocking 5: with 1# weight wrist flex, ext deviation and sup.pro 6: scar massage 7: soft putty mold puller digit extension roll, digit flexion and tripod pinch 8: sensory stimulation cotton ball textured fabric and traore of beans instructed in performance of same at home Skilled Intervention: Patient was educated in proper exercise technique and purpose for exercises. Skilled judgment was provided in selection of appropriate interventions. Modalities: Fluidotherapy Body Region Treated - Fluidotherapy: left hand Patient Position: seated Temperature: 109 Minute(s): 10 Activity 1: AROM wrist and thumb See flowsheet for details regarding treatment. Skilled Intervention: Proper administration and selection of modality based on clinical presentation, deficits, and needs. Patient response monitored throughout treatment. Billing: [place]: Therapeutic Exercise ([id number]): 1:1 time:325 minutes (2 units: 23-37 mins) Fluidotherapy ([id number]) 1 unit(s) Total time: 45 minutes Cherise Irby OT/BOAZ Annotated image of OT HAND THERAPUTTY EXERCISES PG 1 last updated by Cherise Irby on 08/14/2018 1:59 PM Annotated image of OT HAND THERAPUTTY EXERCISES PG 2 last updated by Cherise Irby on 08/14/2018 1:[address] [facility] PROGRESSon 08-14-2018 PROGRESS HNO ID: [id number] Author: Cherise Irby Service: ? Author Type: Occupational Therapist Type: Progress Notes Filed: 08/14/2018 2:41 PM Note Text: Episode Visit Count: 4 Therapist That Will Oversee The Plan Of Care: Cristobal Start of Care Date: 07/17/18 Onset Date: 06/15/18 Plan of Care Certification Date: 07/17/18 Patient Identified by Name and Date of : Yes REHABILITATION AND SPORTS THERAPY OCCUPATIONAL THERAPY PROGRESS REPORT PLAN OF CARE UPDATE: Assessment: Neris Tarango exhibits difficulty with sensitivity over scar and improvements in AROM . She continues to be limited with weight bearing, gripping, pinching, pushing and carrying. She is progressing slower than expected towards her therapy goals as demonstrated by: documented subjective information on progress. She will benefit from continued skilled therapy requiring exercises education modalities and manual techniques in order to improve function. Functional gains: Increased independence with HEP Increased ROM Patient will report a good understanding of diagnosis and OT recommendations for progression of program PROGRESSING 08/14 Patient will increase AROM of left wrist and thumb to WNL in order to be able to perform fine motor tasks. PROGRESSING 08/14 Patient will report a good understanding of edema control techniques PROGRESSING 08/14 Patient will report a good understanding of the use of modalities to help manage discomfort and promote healing PROGRESSING 08/14 Patient will independently demonstrate scar massage/management in order to decrease scar adherence by discharge PROGRESSING 08/14 Patient will have functional mold puller and pinch strength as evidenced by I ADL IADL Planned Interventions, Frequency, and Duration: , Total Number of Visits Planned: 3 Patient to be seen for Modalities;Therapeutic exercise;Manual therapy;Self-fpc managementFluidotherapy PLAN FOR NEXT VISIT: assess tolerance to putty and sensory exercises SUBJECTIVE: 8 weeks s/p CMC arthroplasty saw MD just prior to visit here reports she is feeling better Pain: Pain Pain Level: 4 Pain Location: Hand - Left;Thumb - Left OBJECTIVE MEASURES WITH LEVEL OF FUNCTION: Hand Edema Location: left hand Edema Description: Mild Strength: Dynamometer / Sample Patternmaker;Pinch Meter R Sample Patternmaker Position 2 (lbs): 59 lbs L Sample Patternmaker Position 2 (lbs): 15 lbs R Lateral Pinch (lbs): 15 lbs R Tripod Pinch (lbs): 13 lbs R Tip Pinch (lbs): 12 lbs L Lateral Pinch (lbs): 5 lbs L Tripod Pinch (lbs): 4 lbs L Tip Pinch (lbs): 4 lbs UE AROM L Wrist Extension: 45 Degrees L Wrist Flexion: 30 Degrees Hand AROM L Thumb MP Flexion : 30 Degrees L Thumb IP Flexion : 45 Degrees L Thumb Radial Abduction: 55 Degrees L Thumb Palmar Abduction: 55 Degrees UE and Cervical Strength R Lateral Pinch (lbs): 15 lbs R Tip Pinch (lbs): 12 lbs L Lateral Pinch (lbs): 5 lbs L Tip Pinch (lbs): 4 lbs TREATMENT: Therapeutic Exercise: 1: wrist flex, ext and deviation 2: thumb flex/ext opposition radial and palmar abduction and IP blocking 5: with 1# weight wrist flex, ext deviation and sup.pro 6: scar massage 7: soft putty mold puller digit extension roll, digit flexion and tripod pinch 8: sensory stimulation cotton ball textured fabric and traore of beans instructed in performance of same at home Skilled Intervention: Patient was educated in proper exercise technique and purpose for exercises. Skilled judgment was provided in selection of appropriate interventions. Modalities: Fluidotherapy Body Region Treated - Fluidotherapy: left hand Patient Position: seated Temperature: 109 Minute(s): 10 Activity 1: AROM wrist and thumb See flowsheet for details regarding treatment. Skilled Intervention: Proper administration and selection of modality based on clinical presentation, deficits, and needs. Patient response monitored throughout treatment. Billing: [place]y: Therapeutic Exercise ([id number]): 1:1 time:325 minutes (2 units: 23-37 mins) Fluidotherapy ([id number]) 1 unit(s) Total time: 45 minutes Cherise Irby OT/[facility] CNTHERAPYon 08-06-2018 CNTHERAPY OT/PT/Speech Visit ( [facility]) NERIS TARANGO ([id number]) 1955 F Date Time Provider Department 08/06/18 4:00 PM CHEIRSE IRBY (OT) [facility] Date Time Provider Department Center 08/06/2018 4:00 PM [id number] Reason for Visit: Occupational Therapy [504] Primary Visit Diagnosis:Primary osteoarthritis of first carpometacarpal joint of left hand [M18.12] Allergies As of Date: 08/06/2018 Noted Allergy Reaction ADHESIVE TAPE (ROSINS) 02/18/2010 9 - Itching CODEINE 04/21/2005 8 - GI Upset GLUTEN 06/06/2018 2 - Rash 11 - Vomiting NORCO (HYDROCODONE-ACETAMINOPHEN) 06/25/2018 5 - Intolerance Comments: Decreased heart rate VOLTAREN (DICLOFENAC SODIUM) 07/07/2005 8 - GI Upset ZITHROMAX (AZITHROMYCIN) 04/06/2007 8 - GI Upset Comments: nausea Date Reviewed: 07/17/2018 Reviewed by: Annmarie Gaines (Pa) - Fully Assessed Prescriptions as of 08/06/2018 Sig: COMPOUNDED PRESCRIPTION 1 Each every 4 hours as neede* ALBUTEROL SULFATE 2.5 MG/3 ML* Use 3 mL via nebulizer every * ALBUTEROL SULFATE HFA 90 MCG/* Inhale 2 Puffs as instructed * THERAPEUTIC MULTIVITAMIN TABL* Take one(1) tablet daily. Progress Notes: Cherise Irby OT/[facility] 08/06/2018 4:39 PM Signed Episode Visit Count: 3 Therapist That Will Oversee The Plan Of Care: Cristobal Start of Care Date: 07/17/18 Onset Date: 06/15/18 Plan of Care Certification Date: 07/17/18 Patient Identified by Name and Date of : Yes REHABILITATION AND SPORTS THERAPY OCCUPATIONAL THERAPY TREATMENT NOTE ASSESSMENT: Neris Tarango demonstrated difficulty with pain. edema , decreased ROM and hypersensitive scar The patient will continue to benefit from continued skilled occupational therapy for education exercises modalities PLAN FOR NEXT VISIT: SUBJECTIVE: 7 weeks s/p CMC arthroplasty fell on hand and also catch self with hand over the weekend presents with more edema and less motion Pain: Pain Pain Level: 6 Pain Location: Hand - Left OBJECTIVE MEASURES WITH LEVEL OF FUNCTION: Hand Edema Location: left hand Edema Description: Moderate Edema Measurements: Wrist (DWC) (cm);DPC (cm) L Wrist (DWC) (cm): 16.3 L DPC (cm): 28 L Thumb P1 (cm): 6.9 cm L Thumb IP Joint (cm): 6.4 cm UE AROM L Wrist Extension: 40 Degrees L Wrist Flexion: 20 Degrees Hand AROM L Thumb MP Flexion : 19 Degrees L Thumb IP Flexion : 27 Degrees L Thumb Radial Abduction: 50 Degrees L Thumb Palmar Abduction: 35 Degrees TREATMENT: Self-Correction Management: 1: provided with ice instructed to use ice 2 x day 2: instructed pt in activity reduction and stopping exercises until she is checked or it feels better 3: wrapped with tiara wrap and applied splint 4: pt to try an obtain Xray or further medical advise tomorrow Skilled Intervention: Skilled judgment in the selection of proper modification for activity of daily living/home management based on clinical presentation, deficits, and needs. Billing: [place]: Self Care / Home Management ([id number]): 1:1 time:30 minutes (2 units: 23-37 mins) Total time: 30 minutes Cherise Irby OT/[facility] PROGRESSon 08-06-2018 PROGRESS HNO ID: [id number] Author: Cherise Irby Service: ? Author Type: Occupational Therapist Type: Progress Notes Filed: 08/06/2018 4:39 PM Note Text: Episode Visit Count: 3 Therapist That Will Oversee The Plan Of Care: Cristobal Start of Care Date: 07/17/18 Onset Date: 06/15/18 Plan of Care Certification Date: 07/17/18 Patient Identified by Name and Date of : Yes REHABILITATION AND SPORTS THERAPY OCCUPATIONAL THERAPY TREATMENT NOTE ASSESSMENT: Neris Tarango demonstrated difficulty with pain. edema , decreased ROM and hypersensitive scar The patient will continue to benefit from continued skilled occupational therapy for education exercises modalities PLAN FOR NEXT VISIT: SUBJECTIVE: 7 weeks s/p CMC arthroplasty fell on hand and also catch self with hand over the weekend presents with more edema and less motion Pain: Pain Pain Level: 6 Pain Location: Hand - Left OBJECTIVE MEASURES WITH LEVEL OF FUNCTION: Hand Edema Location: left hand Edema Description: Moderate Edema Measurements: Wrist (DWC) (cm);DPC (cm) L Wrist (DWC) (cm): 16.3 L DPC (cm): 28 L Thumb P1 (cm): 6.9 cm L Thumb IP Joint (cm): 6.4 cm UE AROM L Wrist Extension: 40 Degrees L Wrist Flexion: 20 Degrees Hand AROM L Thumb MP Flexion : 19 Degrees L Thumb IP Flexion : 27 Degrees L Thumb Radial Abduction: 50 Degrees L Thumb Palmar Abduction: 35 Degrees TREATMENT: Self-Correction Management: 1: provided with ice instructed to use ice 2 x day 2: instructed pt in activity reduction and stopping exercises until she is checked or it feels better 3: wrapped with tiara wrap and applied splint 4: pt to try an obtain Xray or further medical advise tomorrow Skilled Intervention: Skilled judgment in the selection of proper modification for activity of daily living/home management based on clinical presentation, deficits, and needs. Billing: [place]: Self Care / Home Management ([id number]): 1:1 time:30 minutes (2 units: 23-37 mins) Total time: 30 minutes Cherise Irby OT/[facility] CNTHERAPYon 07-31-2018 CNTHERAPY OT/PT/Speech Visit ( [facility]) NERIS TARANGO ([id number]) 1955 F Date Time Provider Department 07/31/18 1:45 PM CHERISE IRBY (OT) [facility] Date Time Provider Department Center 07/31/2018 1:45 PM [id number] Reason for Visit: Occupational Therapy [504] Primary Visit Diagnosis:Primary osteoarthritis of first carpometacarpal joint of left hand [M18.12] Allergies As of Date: 07/31/2018 Noted Allergy Reaction ADHESIVE TAPE (ROSINS) 02/18/2010 9 - Itching CODEINE 04/21/2005 8 - GI Upset GLUTEN 06/06/2018 2 - Rash 11 - Vomiting NORCO (HYDROCODONE-ACETAMINOPHEN) 06/25/2018 5 - Intolerance Comments: Decreased heart rate VOLTAREN (DICLOFENAC SODIUM) 07/07/2005 8 - GI Upset ZITHROMAX (AZITHROMYCIN) 04/06/2007 8 - GI Upset Comments: nausea Date Reviewed: 07/17/2018 Reviewed by: Annmarie Gaines (Pa) - Fully Assessed Prescriptions as of 07/31/2018 Sig: COMPOUNDED PRESCRIPTION 1 Each every 4 hours as neede* ALBUTEROL SULFATE 2.5 MG/3 ML* Use 3 mL via nebulizer every * ALBUTEROL SULFATE HFA 90 MCG/* Inhale 2 Puffs as instructed * THERAPEUTIC MULTIVITAMIN TABL* Take one(1) tablet daily. Progress Notes: Cherise Irby OT/L 07/31/2018 3:40 PM Signed Episode Visit Count: 2 Therapist That Will Oversee The Plan Of Care: Cristobal Start of Care Date: 07/17/18 Onset Date: 06/15/18 Plan of Care Certification Date: 07/17/18 Patient Identified by Name and Date of : Yes REHABILITATION AND SPORTS THERAPY OCCUPATIONAL THERAPY TREATMENT NOTE ASSESSMENT: Neris Tarango demonstrated improvements in AROM. The patient will continue to benefit from continued skilled occupational therapy for exercises modalities and manual techniques PLAN FOR NEXT VISIT: soft putty SUBJECTIVE: Pt reports she did have some soreness reports she was out planting in the garden used soft support to do so Pain: Pain Pain Level: 4 Pain Location: Thumb - Left Description: Sharp;Aching OBJECTIVE MEASURES WITH LEVEL OF FUNCTION: @FLOWREFRESH([id number],14 [id number] ,[id number],[id number],9 [phone],93 [id number] ,[id number])@ See flow sheet TREATMENT: Therapeutic Exercise: 1: wrist flex, ext and deviation 2: thumb flex/ext opposition radial and palmar abduction and IP blocking 3: ball rolling on table top for AAROM 4: peg board notched pegs in and out 5: with 1# weight wrist flex, ext deviation and sup.pro Skilled Intervention: Patient was educated in proper exercise technique and purpose for exercises. Skilled judgment was provided in selection of appropriate interventions. Modalities: Fluidotherapy Body Region Treated - Fluidotherapy: left hand Patient Position: seated Temperature: 109 Minute(s): 10 Activity 1: AROM wrist and thumb See flowsheet for details regarding treatment. Skilled Intervention: Proper administration and selection of modality based on clinical presentation, deficits, and needs. Patient response monitored throughout treatment. Billing: [place]: Therapeutic Exercise ([id number]): 1:1 time:30 minutes (2 units: 23-37 mins) Fluidotherapy (95363) 1 unit(s) Total time: 40 minutes Cherise Irby OT/[facility] Annotated image of OT HAND WRIST STRENGTHENING last updated by Cherise Irby on 07/31/2018 2:13 PM [facility] PROGRESSon 07-31-2018 PROGRESS HNO ID: [id number] Author: Cherise Irby Service: ? Author Type: Occupational Therapist Type: Progress Notes Filed: 07/31/2018 3:40 PM Note Text: Episode Visit Count: 2 Therapist That Will Oversee The Plan Of Care: Cristobal Start of Care Date: 07/17/18 Onset Date: 06/15/18 Plan of Care Certification Date: 07/17/18 Patient Identified by Name and Date of : Yes REHABILITATION AND SPORTS THERAPY OCCUPATIONAL THERAPY TREATMENT NOTE ASSESSMENT: Neris Tarango demonstrated improvements in AROM. The patient will continue to benefit from continued skilled occupational therapy for exercises modalities and manual techniques PLAN FOR NEXT VISIT: soft putty SUBJECTIVE: Pt reports she did have some soreness reports she was out planting in the garden used soft support to do so Pain: Pain Pain Level: 4 Pain Location: Thumb - Left Description: Sharp;Aching OBJECTIVE MEASURES WITH LEVEL OF FUNCTION: @FLOWREFRESH([id number],14 [id number], 33025,[id number],[id number],14 [phone],9317,13779,[phone],94 37,[phone],19355,66422,1 [phone],76147,305240,80292,930 007)@ See flow sheet TREATMENT: Therapeutic Exercise: 1: wrist flex, ext and deviation 2: thumb flex/ext opposition radial and palmar abduction and IP blocking 3: ball rolling on table top for AAROM 4: peg board notched pegs in and out 5: with 1# weight wrist flex, ext deviation and sup.pro Skilled Intervention: Patient was educated in proper exercise technique and purpose for exercises. Skilled judgment was provided in selection of appropriate interventions. Modalities: Fluidotherapy Body Region Treated - Fluidotherapy: left hand Patient Position: seated Temperature: 109 Minute(s): 10 Activity 1: AROM wrist and thumb See flowsheet for details regarding treatment. Skilled Intervention: Proper administration and selection of modality based on clinical presentation, deficits, and needs. Patient response monitored throughout treatment. Billing: [place]: Therapeutic Exercise ([id number]): 1:1 time:30 minutes (2 units: 23-37 mins) Fluidotherapy ([id number]) 1 unit(s) Total time: 40 minutes Cherise Irby OT/[facility] CNTHERAPYon 07-24-2018 CNTHERAPY OT/PT/Speech Visit ( [facility] NERIS TARANGO ([id number]) 1955 F Date Time Provider Department 07/24/18 11:00 AM CHERISE IRBY () [facility] Date Time Provider Department Center 07/24/2018 11:00 AM [id number] Reason for Visit: Occupational Therapy [504] Primary Visit Diagnosis:Primary osteoarthritis of first carpometacarpal joint of left hand [M18.12] Allergies As of Date: 07/24/2018 Noted Allergy Reaction ADHESIVE TAPE (ROSINS) 02/18/2010 9 - Itching CODEINE 04/21/2005 8 - GI Upset GLUTEN 06/06/2018 2 - Rash 11 - Vomiting NORCO (HYDROCODONE-ACETAMINOPHEN) 06/25/2018 5 - Intolerance Comments: Decreased heart rate VOLTAREN (DICLOFENAC SODIUM) 07/07/2005 8 - GI Upset ZITHROMAX (AZITHROMYCIN) 04/06/2007 8 - GI Upset Comments: nausea Date Reviewed: 07/17/2018 Reviewed by: Annmarie Gaines (Pa) - Fully Assessed Prescriptions as of 07/24/2018 Sig: COMPOUNDED PRESCRIPTION 1 Each every 4 hours as neede* ALBUTEROL SULFATE 2.5 MG/3 ML* Use 3 mL via nebulizer every * ALBUTEROL SULFATE HFA 90 MCG/* Inhale 2 Puffs as instructed * THERAPEUTIC MULTIVITAMIN TABL* Take one(1) tablet daily. Progress Notes: Cherise Irby, OT/L 07/24/2018 2:35 PM Signed Episode Visit Count: 2 Therapist That Will Oversee The Plan Of Care: Cristobal Start of Care Date: 07/17/18 Onset Date: 06/15/18 Plan of Care Certification Date: 07/17/18 Patient Identified by Name and Date of : Yes REHABILITATION AND SPORTS THERAPY OCCUPATIONAL THERAPY TREATMENT NOTE ASSESSMENT: Neris Tarango demonstrated difficulty with stiffness and edema. The patient will continue to benefit from continued skilled occupational therapy for education modalities exercises and manual techniques PLAN FOR NEXT VISIT: progress to light resistive tasks PROM SUBJECTIVE: Pt reports she has been using her hand has episodes of soreness Pain: OBJECTIVE MEASURES WITH LEVEL OF FUNCTION: UE AROM L Wrist Extension: 40 Degrees L Wrist Flexion: 10 Degrees TREATMENT: Therapeutic Exercise: 1: wrist flex, ext and deviation 2: thumb flex/ext opposition radial and palmar abduction and IP blocking 3: ball rolling on table top for AAROM 4: soft sponge mold puller manipulate and potato picker 5: issued silicone for scar management instructed in wear scheduele and precautions 6: scar massage Skilled Intervention: Patient was educated in proper exercise technique and purpose for exercises. Skilled judgment was provided in selection of appropriate interventions. Modalities: Fluidotherapy Body Region Treated - Fluidotherapy: left hand Patient Position: seated Temperature: 109 Minute(s): 10 Activity 1: AROM wrist and thumb See flowsheet for details regarding treatment. Skilled Intervention: Proper administration and selection of modality based on clinical presentation, deficits, and needs. Patient response monitored throughout treatment. Billing: [place]: Therapeutic Exercise ([id number]): 1:1 time:35 minutes (2 units: 23-37 mins) Fluidotherapy ([id number]) 1 unit(s) Total time: 45 minutes Cherise Irby OT/BOAZ [facility] PROGRESSon 07-24-2018 PROGRESS HNO ID: [id number] Author: Cherise Irby Service: ? Author Type: Occupational Therapist Type: Progress Notes Filed: 07/24/2018 2:35 PM Note Text: Episode Visit Count: 2 Therapist That Will Oversee The Plan Of Care: Cristobal Start of Care Date: 07/17/18 Onset Date: 06/15/18 Plan of Care Certification Date: 07/17/18 Patient Identified by Name and Date of : Yes REHABILITATION AND SPORTS THERAPY OCCUPATIONAL THERAPY TREATMENT NOTE ASSESSMENT: Neris Tarango demonstrated difficulty with stiffness and edema. The patient will continue to benefit from continued skilled occupational therapy for education modalities exercises and manual techniques PLAN FOR NEXT VISIT: progress to light resistive tasks PROM SUBJECTIVE: Pt reports she has been using her hand has episodes of soreness Pain: OBJECTIVE MEASURES WITH LEVEL OF FUNCTION: UE AROM L Wrist Extension: 40 Degrees L Wrist Flexion: 10 Degrees TREATMENT: Therapeutic Exercise: 1: wrist flex, ext and deviation 2: thumb flex/ext opposition radial and palmar abduction and IP blocking 3: ball rolling on table top for AAROM 4: soft sponge mold puller manipulate and potato picker 5: issued silicone for scar management instructed in wear scheduele and precautions 6: scar massage Skilled Intervention: Patient was educated in proper exercise technique and purpose for exercises. Skilled judgment was provided in selection of appropriate interventions. Modalities: Fluidotherapy Body Region Treated - Fluidotherapy: left hand Patient Position: seated Temperature: 109 Minute(s): 10 Activity 1: AROM wrist and thumb See flowsheet for details regarding treatment. Skilled Intervention: Proper administration and selection of modality based on clinical presentation, deficits, and needs. Patient response monitored throughout treatment. Billing: Kristy: Therapeutic Exercise (17640): 1:1 time:35 minutes (2 units: 23-37 mins) Fluidotherapy (16522) 1 unit(s) Total time: 45 minutes Cherise Irby OT/[facility] CNTHERAPYon 07-17-2018 CNTHERAPY OT/PT/Speech Visit ( [facility]) NERIS TARANGO ([id number]) 1955 F Date Time Provider Department 07/17/18 11:00 AM [facility]ERISE IRBY (OT) [facility] Date Time Provider Department Center 07/17/2018 11:00 AM [id number] IRBY *[facility] Reason for Visit: OT EVAL [748] Primary Visit Diagnosis:Primary osteoarthritis of first carpometacarpal joint of left hand [M18.12] Allergies As of Date: 07/17/2018 Noted Allergy Reaction ADHESIVE TAPE (ROSINS) 02/18/2010 9 - Itching CODEINE 04/21/2005 8 - GI Upset GLUTEN 06/06/2018 2 - Rash 11 - Vomiting NORCO (HYDROCODONE-ACETAMINOPHEN) 06/25/2018 5 - Intolerance Comments: Decreased heart rate VOLTAREN (DICLOFENAC SODIUM) 07/07/2005 8 - GI Upset ZITHROMAX (AZITHROMYCIN) 04/06/2007 8 - GI Upset Comments: nausea Date Reviewed: 07/17/2018 Reviewed by: Annmarie Gaines (Pa) - Fully Assessed Prescriptions as of 07/17/2018 Sig: COMPOUNDED PRESCRIPTION 1 Each every 4 hours as neede* ALBUTEROL SULFATE 2.5 MG/3 ML* Use 3 mL via nebulizer every * ALBUTEROL SULFATE HFA 90 MCG/* Inhale 2 Puffs as instructed * THERAPEUTIC MULTIVITAMIN TABL* Take one(1) tablet daily. Progress Notes: JOSE A Blair 07/17/2018 4:18 PM Signed Episode Visit Count: 1 Therapist That Will Oversee The Plan Of Care: Cristobal Start of Care Date: 07/17/18 Onset Date: 06/15/18 Plan of Care Certification Date: 07/17/18 Patient Identified by Name and Date of : Yes [facility] OCCUPATIONAL THERAPY EVALUATION PLAN OF CARE: Assessment: Neris Tarango presents with the diagnosis of s/p CMC arthroplasty. She presents with impairments of AROM EDEAM. She may benefit from skilled occupational therapy services to improve function. Prognosis: Good Good due to: current objective clinical presentation Goals for Episode of Care created on 07/17/18 through 10/17/18 Patient will report a good understanding of diagnosis and OT recommendations for progression of program Patient will increase AROM of left wrist and thumb to WNL in order to be able to perform fine motor tasks. Patient will report a good understanding of edema control techniques Patient will report a good understanding of the use of modalities to help manage discomfort and promote healing Patient will independently demonstrate scar massage/management in order to decrease scar adherence by discharge Planned Interventions, Frequency, and Duration: Current Frequency: 1x/week Duration: 12 weeks Total Number of Visits Planned: 12 Planned Treatment Interventions: Custom orthosis fabrication;Therapeutic exercise;Manual therapy;Self-fpc management;Modalities PLAN FOR NEXT VISIT: progress scar massage, trial fluido PROM of digits Patient demonstrates good understanding of plan of care and treatment. The above goals and plan of care were discussed and agreed upon by patient/family. 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 Patient Lives With: Spouse Pain: Pain Pain Level: 4 Pain Location: Thumb - Left Description: Aching Frequency: Continuous Post Treatment Pain Post Treatment Pain Score: No Change OBJECTIVE MEASURES WITH LEVEL OF FUNCTION: Hand Evaluation Skin / Wound: Scar Scar: Tender;Moderate adherance Edema Location: left hand Edema Description: Moderate Edema Measurements: Wrist (DWC) (cm);Digits R Wrist (DWC) (cm): 15.9 L Wrist (DWC) (cm): 16.2 Edema - Digits: Thumb R Thumb P1 (cm): 6 cm R Thumb IP Joint (cm): 6.1 cm L Thumb P1 (cm): 6.1 cm L Thumb IP Joint (cm): 6.3 cm Elbow/Wrist AROM: Limitations as noted Limitations as noted: Left Hand AROM: WFL Thumb AROM: Limitations as noted Limitations as noted: Bilateral Strength: Not Tested Sensation: Reports tingling or numbness;[place]-John L Thumb: 3.61-diminished light touch Hand AROM R Thumb MP Flexion : 54 Degrees R Thumb IP Flexion : 56 Degrees R Thumb Radial Abduction: 55 Degrees R Thumb Palmar Abduction: 50 Degrees L Thumb MP Flexion : 0 Degrees L Thumb IP Flexion : 15 Degrees L Thumb Radial Abduction: 35 Degrees L Thumb Palmar Abduction: 35 Degrees UE AROM L Wrist Extension: 30 Degrees L Wrist Flexion: 5 Degrees L Wrist Radial Deviation: 10 Degrees L Wrist Ulnar Deviation: 15 Degrees Education: Education Learning Preferences: Demonstration;Explanation Barriers: None Learning/educational needs: Home exercise program;Plan of Care;Brace Fit Education Provided: Yes, see treatment interventions for education provided Education Provided To: Patient Education Mode/Type: Demonstration;Explanation/D iscussion;Literature/Printe d Materials Response to Education/Teach Back: States/Identifies;Return Demonstration;Requires Review/Additional Education TREATMENT: Evaluation Evaluation Therapeutic Exercise: 1: wrist flex, ext and deviation 2: thumb flex/ext opposition radial and palmar abduction and IP blocking 3: fabricated forearm based thumb spica splint Skilled Intervention: Patient was educated in proper exercise technique and purpose for exercises. Provided written instruction for home exercise program to facilitate proper performance and compliance. Self-Correction Management: 1: instructed in edema reduction 2: instructed in use of ice and or heat with precautions 3: instructed in scar massage Skilled Intervention: Skilled judgment in the selection of proper modification for activity of daily living/home management based on clinical presentation, deficits, and needs. Custom orthosis: L 3808 (b) WHFO custom (mid forearm/ long oppon/ wrist-thumb/ gutter) Custom orthosis to provide Pt practiced orthosis application, donning on/off while under OT's supervision. and to promote healing. Patient was instructed in care of orthosis and wearing schedule cook fish eggs except when exercising / bathing. . Skilled Intervention: Clinical knowledge and skills required for custom orthotic fabrication and wearing schedule Billing: Kristy: Evaluation - Low Complexity ( 56363) Self Care / Home Management (49310): 1:1 time:10 minutes (1 unit: 8-22 mins) Therapeutic Exercise (69590): 1:1 time:10 minutes (1 unit: 8-22 mins) Custom made forearm based thumb spica splint Total time: 55 minutes RICHARD Blair Annotated image of OT HAND POST-OP EX'S PG4-WRIST last updated by Cherise Irby on 07/17/2018 10:16 AM Annotated image of OT HAND POST-OP EX'S PG6-THUMB last updated by Cherise Irby on 07/17/2018 10:[address] [facility] PROGRESSon 07-17-2018 PROGRESS HNO ID: [id number] Author: Cherise Irby Service: ? Author Type: Occupational Therapist Type: Progress Notes Filed: 07/17/2018 4:18 PM Note Text: Episode Visit Count: 1 Therapist That Will Oversee The Plan Of Care: Cristobal Start of Care Date: 07/17/18 Onset Date: 06/15/18 Plan of Care Certification Date: 07/17/18 Patient Identified by Name and Date of : Yes [facility] OCCUPATIONAL THERAPY EVALUATION PLAN OF CARE: Assessment: Neris Tarango presents with the diagnosis of s/p CMC arthroplasty. She presents with impairments of AROM EDEAM. She may benefit from skilled occupational therapy services to improve function. Prognosis: Good Good due to: current objective clinical presentation Goals for Episode of Care created on 07/17/18 through 10/17/18 Patient will report a good understanding of diagnosis and OT recommendations for progression of program Patient will increase AROM of left wrist and thumb to WNL in order to be able to perform fine motor tasks. Patient will report a good understanding of edema control techniques Patient will report a good understanding of the use of modalities to help manage discomfort and promote healing Patient will independently demonstrate scar massage/management in order to decrease scar adherence by discharge Planned Interventions, Frequency, and Duration: Current Frequency: 1x/week Duration: 12 weeks Total Number of Visits Planned: 12 Planned Treatment Interventions: Custom orthosis fabrication;Therapeutic exercise;Manual therapy;Self-fpc management;Modalities PLAN FOR NEXT VISIT: progress scar massage, trial fluido PROM of digits Patient demonstrates good understanding of plan of care and treatment. The above goals and plan of care were discussed and agreed upon by patient/family. 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 Patient Lives With: Spouse Pain: Pain Pain Level: 4 Pain Location: Thumb - Left Description: Aching Frequency: Continuous Post Treatment Pain Post Treatment Pain Score: No Change OBJECTIVE MEASURES WITH LEVEL OF FUNCTION: Hand Evaluation Skin / Wound: Scar Scar: Tender;Moderate adherance Edema Location: left hand Edema Description: Moderate Edema Measurements: Wrist (DWC) (cm);Digits R Wrist (DWC) (cm): 15.9 L Wrist (DWC) (cm): 16.2 Edema - Digits: Thumb R Thumb P1 (cm): 6 cm R Thumb IP Joint (cm): 6.1 cm L Thumb P1 (cm): 6.1 cm L Thumb IP Joint (cm): 6.3 cm Elbow/Wrist AROM: Limitations as noted Limitations as noted: Left Hand AROM: WFL Thumb AROM: Limitations as noted Limitations as noted: Bilateral Strength: Not Tested Sensation: Reports tingling or numbness;[place]-John L Thumb: 3.61-diminished light touch Hand AROM R Thumb MP Flexion : 54 Degrees R Thumb IP Flexion : 56 Degrees R Thumb Radial Abduction: 55 Degrees R Thumb Palmar Abduction: 50 Degrees L Thumb MP Flexion : 0 Degrees L Thumb IP Flexion : 15 Degrees L Thumb Radial Abduction: 35 Degrees L Thumb Palmar Abduction: 35 Degrees UE AROM L Wrist Extension: 30 Degrees L Wrist Flexion: 5 Degrees L Wrist Radial Deviation: 10 Degrees L Wrist Ulnar Deviation: 15 Degrees Education: Education Learning Preferences: Demonstration;Explanation Barriers: None Learning/educational needs: Home exercise program;Plan of Care;Brace Fit Education Provided: Yes, see treatment interventions for education provided Education Provided To: Patient Education Mode/Type: Demonstration;Explanation/D iscussion;Literature/Printe d Materials Response to Education/Teach Back: States/Identifies;Return Demonstration;Requires Review/Additional Education TREATMENT: Evaluation Evaluation Therapeutic Exercise: 1: wrist flex, ext and deviation 2: thumb flex/ext opposition radial and palmar abduction and IP blocking 3: fabricated forearm based thumb spica splint Skilled Intervention: Patient was educated in proper exercise technique and purpose for exercises. Provided written instruction for home exercise program to facilitate proper performance and compliance. Self-Correction Management: 1: instructed in edema reduction 2: instructed in use of ice and or heat with precautions 3: instructed in scar massage Skilled Intervention: Skilled judgment in the selection of proper modification for activity of daily living/home management based on clinical presentation, deficits, and needs. Custom orthosis: L 3808 (b) WHFO custom (mid forearm/ long oppon/ wrist-thumb/ gutter) Custom orthosis to provide Pt practiced orthosis application, donning on/off while under OT's supervision. and to promote healing. Patient was instructed in care of orthosis and wearing schedule cook fish eggs except when exercising / bathing. . Skilled Intervention: Clinical knowledge and skills required for custom orthotic fabrication and wearing schedule Billing: [place]: Evaluation - Low Complexity ( 90921) Self Care / Home Management (38281): 1:1 time:10 minutes (1 unit: 8-22 mins) Therapeutic Exercise (92315): 1:1 time:10 minutes (1 unit: 8-22 mins) Custom made forearm based thumb spica splint Total time: 55 minutes Cherise Irby OT/[facility] PROGRESS HNO ID: [id number] Author: ELVIA Stanton (Ct) Service: ? Author Type: Clinical Blow Machine Tender Starch Spraying Type: Progress Notes Filed: 07/17/2018 9:28 AM Note Text: NAME:Neris Tarango DATE: July 17, 2018 CCF#: [id number] Upper Extremity X-Ray(s): Wrist, left COMPLETED TECH ID SIGN: DEBO CALDERA [facility] XR WRIST 3V PA/LAT/OBL LTon 07-17-2018 XR WRIST 3V PA/LAT/OBL LT * * *Final Report* * * DATE OF EXAM: Jul 17 2018 9:25AM SHAHRAM 5270 - XR WRIST 3V PA/LAT/OBL LT / PROCEDURE REASON: M25.532-Pain in left wrist * * * * Physician Interpretation * * * * PROCEDURE: Left wrist INDICATION: Pain in left wrist .1ST P O CMC TECHNIQUE: XR WRIST 3V PA/LAT/OBL LT COMPARISON: 04/06/2018 FINDINGS: Interval trapeziectomy. No fracture, soft tissue foreign body or soft tissue gas. Mild radiocarpal osteoarthrosis and 2nd CMC joint osteoarthrosis. IMPRESSION: Postop trapeziectomy Manager Sterile: PSCB Transcribe Date/Time: Jul 17 2018 11:11A Dictated by : CONY HALL MD This examination was interpreted and the report reviewed and electronically signed by: CONY HALL MD on Jul 17 2018 11:13AM EST [id number] [facility] ANES Oleg 06-15-2018 ANES POST HNO ID: [id number] Author: Reid Galeas Service: Anesthesiology Author Type: Anesthesiologist Type: Anesthesia PostOp Filed: 06/15/2018 5:03 PM Note Text: POST ANESTHESIA EVALUATION NOTE SERVICE DATE: 06/15/2018 SERVICE TIME: 5:03 PM : 1955 Vitals: 06/15/18 1015 06/15/18 1348 Temp: 36.9 ?C (98.4 ?F) 36.2 ?C (97.2 ?F) 06/15/18 1140 06/15/18 1348 06/15/18 1400 06/15/18 1415 BP: 135/79 117/58 118/56 129/62 06/15/18 1140 06/15/18 1348 06/15/18 1400 06/15/18 1415 Pulse: 80 77 78 71 06/15/18 1140 06/15/18 1348 06/15/18 1400 06/15/18 1415 Resp: 14 18 18 18 06/15/18 1140 06/15/18 1348 06/15/18 1400 06/15/18 1415 SpO2: 99% 97% 98% 97% Validated Vital Signs: Yes POST ANES STATUS: No apparent anesthetic complications. The patient is appropriately hydrated with stable respiratory and cardiovascular status. Patient has safe and adequate airway control. The patient has appropriate pain relief and no significant post operative nausea or vomiting. The patient has achieved baseline mental status. Further assessment by Anesthesia Service: None Other Remarks: SIGNATURE: Reid Galeas MD PATIENT NAME: Neris Tarango DATE: June 15, 2018 TIME: 5:03 PM PAGER/CONTACT #: [phone] [facility] ANES PREOPon 06-15-2018 ANES PREOP HNO ID: [id number] Author: Reid Galeas Service: Anesthesiology Author Type: Anesthesiologist Type: Anesthesia PreOp Filed: 06/15/2018 10:25 AM Note Text: ANESTHESIOLOGY DAY OF SURGERY NOTE SERVICE DATE: 06/15/2018 SERVICE TIME: 10:25 AM : 1955 Procedure(s) (LRB): ARTHROPLASTY CARPOMETACARPAL JOINTS (Left) Surgeon(s): Nicolas Florence Estimated body mass index is 22.2 kg/m? as calculated from the following: Height as of this encounter: 172.7 cm (5' 7.99). Weight as of this encounter: 66.2 kg (146 lb). 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 03/17/2017 - Urinary calculus, unspecified Renal stones PAST SURGICAL HISTORY Procedure Laterality Date - CHOLECYSTECTOMY 03/18/10 - COLONOSCOP W/ OR W/O BRSH SPEC 04/14/2017 Colonoscopy - COLONOSCOPY W/BX 03/02/10 Random Biopsies-repeat in - CYSTO.PANENDO 2004 Cystoscopy kidney stone - EGD W/O BRSH SPECIMEN W/BX 03/02/10 Gastric polyps - EGD W/O OR W/BRUSH/WASH 04/14/2017 EGD - LAPAROSCOPY, SURGICAL, APPENDECTOMY 03/18/10 FAMILY HISTORY Problem Relation Age of Onset - Arthritis Mother had joint replacements - Hypertension Father - Stroke Father Social History: Social History Tobacco Use - Smoking status: Never Smoker - Smokeless tobacco: Never Used Substance Use Topics - Alcohol use: Yes Alcohol/week: 1.5 oz Types: 1 Mixed Drinks per week - Drug use: No No current facility-administered medications on file prior to encounter. Current Outpatient Medications on File Prior to Encounter: albuterol HFA (PROAIR HFA) 90 mcg/actuation inhaler Inhale 2 Puffs as instructed every 4 hours as needed for Wheezing/Shortness of Breath. Nebulizer 1 Each every 4 hours as needed. NEBULIZER FOR HOME USE. DX: J45.41 albuterol (PROVENTIL) 2.5 mg /3 mL (0.083 %) nebulizer solution Use 3 mL via nebulizer every 4 hours as needed for Wheezing/Shortness of Breath. Use over 5-15minutes. THERAPEUTIC MULTIVITAMIN TAB Take one(1) tablet daily. Current Facility-Administered Medications: lidocaine 10 mg/mL (1 %) 1-2 mg injection (XYLOCAINE) 0.1-0.2 mL INTRADERMAL PRN Annmarie (Pa) Vetovitz lactated ringers infusion 5-30 mL/hr INTRAVENOUS CONTINUOUS Annmarie (Pa) Vetovitz Last Rate: 30 mL/hr at 06/15/18 1018 30 mL/hr at 06/15/18 1018 ceFAZolin iv piggyback 2 g in D5W (iso-osmotic) 100 mL (ANCEF) 2 g INTRAVENOUS Pre-Op Once Annmarie (Pa) Vetovitz Allergies: ALLERGIES Allergen Reactions - Adhesive Tape (Daly* Itching - Codeine GI Upset - Gluten Rash, Vomiting - Voltaren [Diclofena* GI Upset - Zithromax [Azithrom* GI Upset nausea DOS EXAM: Adequate NPO status: Yes Anesthetic risks, benefits, alternatives, personnel and consent discussed: Yes Patient agrees to proceed: Yes Previous Anesthesia: No history of adverse event. Airway Assessment: MP 2; Neck ROM: Full ROM without neurologic symptoms; Airway Evaluation: No significant abnormalities Symptoms of Sleep Apnea: None Dentition: Teeth intact Additional Physical Exam: Lungs: Patient health status unchanged since recent history and physical. See history and physical for exam findings. Cardiac: Patient health status unchanged since recent history and physical. See history and physical for exam findings. Additional Pertinent Findings: N/A Blood Products: Not anticipated for this procedure. Anesthetic Plan: MAC with Sedation and Block with Sedation Pain Management Plan: Parenteral or Oral ASA Class: 2 Other Medical Problems: None I have interviewed and examined the patient. I have reviewed the medical record and/or the pre-anesthesia evaluation, pertinent labs, and test results. Significant changes in the patient's condition since the History and Physical, not otherwise documented in primary service progress notes: No This contains updated information obtained within 48 hours of Surgery/Procedure. SIGNATURE: Reid Galeas MD PATIENT NAME: Neris Tarango DATE: June 15, 2018 TIME: 10:25 AM CSN: [id number] [facility] NURSING PROGon 06-15-2018 NURSING PROG HNO ID: [id number] Author: Savanah MarroquinRn) MAGEN Díaz Service: Nursing Author Type: Registered Nurse Type: Nursing Progress Note Filed: 06/15/2018 3:45 PM Note Text: Nursing Progress Note Patient Name: Neris Tarango Patient Location: [place] Surgery/[facility] Surgery 1445 Pt received in ASCU on cart from PACU. Pt assisted to bathroom and voided qs. Snack given upon return to bedside. This note was completed by: Savanah Díaz, RN 1525 IV removed. Site without redness or swelling. Homegoing instructions given. Pt and verbalize their understanding. 3163 Pt discharged to home via wheelchair to car accomp by staff and in stable cond. [facility] OPERATIVE NOon 06-15-2018 OPERATIVE NO HNO ID: [id number] Author: Nicolas Florence Service: Orthopaedic Surgery Author Type: Physician Type: Operative Report Filed: 06/18/2018 7:33 AM Note Text: OPERATIVE/PROCEDURE REPORT ? LOG ID: [id number] Surgery/Procedure Date: 06/15/2018 Incision/Procedure Start Time: 12:18 PM Incision Close/Procedure End Time: 1:42 PM Surgeon(s)/Proceduralist(s) and Director Internal Audit(s): Surgeon(s) and Role: * Nicolas Florence - Primary Physician Director Internal Audit: Annmarie Gaines (Pa) ? Procedure(s): Left thumb, CMC arthroplasty with ligament reconstruction and tendon interposition, flexor carpi radialis. ? Anesthesia: General with regional. ? Procedure Details: PROCEDURE:? On 06/15/2018, the patient was identified in the preoperative area and? marked on the Left thumb accordingly.?Patient had a regional block placed per? the anesthetic team.? Pt. Received 2 g of Ancef within one hour of incision or tourniquet. Patient was placed in a supine position and placed an arm? board on the effected limb.? A well padded tourniquet was applied and set at 250 mmHg.? An appropriate time out was conducted and all were in agreement. Signed?consent form was on the chart and images were available for viewing. The upper extremity was then exsanguinated with an Esmarch bandage and the? tourniquet was applied at 250 mmHg.? A longitudinal incision was identified over? the dorsal portion of the CMC joint.? I made the incision approximately 3 cm, centered over this.? Furthermore, an incision was marked over the FCR tendon at thelevel of the forearm. Superficial skin incision was made with a 15 blade and this was? then bluntly dissected with Littler scissors.? I was able to identify the branches of the radial? sensory nerve and these were identified and protected with retraction throughout? the case.? I then came down through the interval of the APL and EPB tendons and? came directly down to the periosteum and divided the capsule over the top of the? joint, coming down on the trapezium.? The radial artery was identified clearly in? the proximal portion of the incision and protected throughout the case with a? Ragnell retractor.? I then painstakingly dissected the soft tissues off the? trapezium and identified all the borders of the bone including the surrounding? joint spaces.? The CMC joint showed no cartilage and sclerotic surface, bone on bone appearance. Large osteophyte in the gutter between first and second metacarpal heads as well as a large piece on the most radial side of the bone. Once the soft tissues were appropriately released from the? trapezium protecting the adjacent cartilage and soft tissues, I used a? reciprocating saw to place a scored cross in the bone quartering it.? I then? finished the osteotomies with a 1/4-inch osteotome.? I then removed, in a? piecemeal fashion, the trapezium while protecting the underlying FCR tendon.? This? was identified and shown to be in continuity.? I placed a 3-0 Tevdek suture? through the volar capsule.? I then focused my attention on preparing? the site for the tendon graft.? Starting on the dorsal surface of the thumb with? my exiting point just slightly on the volar side of the base of the metacarpal,? sequential drill bits were used to fashion the tunnel for the graft and to re-create the beak ligament.? The? positioning was to my liking and the tunnel and the joint were copiously irrigated? to remove any bony debris.? I first made an incision at the wrist crease to harvest the palmaris, however it was rather remedial and I felt too thin and small to appropriately use it during the reconstruction. Therefore, I then measured 7 cm from the wrist crease over the FCR tendon and made a 1 cm incision proximally in the forearm. I dissected out the FCR tendon to be able to get a right angle retractor beneath it and separate it away from some of the muscle belly.? A whip stitch was placed with a 3-? 0 Maxon suture and the tendon was divided at the proximal portion, retrieving it through the more distal incision and subsequent through the trapezii ectomy site, intact and safely done. I then brought it up through the? drill hole, affectively recreating the beak ligament and secured in place with the Tevdek suture as I suspended the joint slightly with longitudinal traction.? A number of [id number] from? the tendon were secured, and the remaining portion of the tendon was rolled into? an anchovy and secured nicely down in the trapeziectomy site, successfully? interposing the tendon and securing it in place with the previously placed Tevdek? suture in the volar capsule. This showed a nice suspension with recreation of the? beak ligament and interposition to my liking.? At this time, the tourniquet was? taken down and hemostasis was observed with bipolar electrocautery.? The wound was?copiously irrigated with normal saline and we began our closure.? I closed? the redundant dorsal capsule, in a vest over pants fashion with with 3-0 Biosyn?sutures.? Again, the radial sensory nerve was identified and shown? to be in continuity at the end of the case, and I closed down the subcutaneous? tissues over the joint with buried 3-0 Biosyn suture.? Final skin closure was? completed with a 4-0 Biosyn subcuticular weave both on the dorsal side and the? palmar incisions.? Steri-Strips, Xeroform gauze, sterile 4 x 4, Webril padding,? and a well positioned thumb spica splint with the IP joint free, which was secured? with a light Karla wrap and Tiara bandage.? There were no complications during the? procedure.? Patient was safely awoken after we placed a light soft bandage on the?shoulder, and was taken to the Postoperative Suite in stable condition. ? Pre-Op/Pre-Procedure Diagnosis: Left thumb, CMC osteoarthritis, subsequent. ? Post-Op/Post-Procedure Diagnosis: same Estimated Blood Loss: 0 ml ? Specimens: None ? Implantable Devices: None ? Drains: None ? Complications: None ? ? PARTICIPATION IN SURGERY/PROCEDURE: I performed the procedure with assistance. There were no residents or fellows available. I performed the procedure with assistance. Ms. Gaines was involved with pt. Positioning, prepping, draping, manual traction to access the joint, soft tissue and artery retraction, digit placement and stabilization during sawing, drilling ligament reconstruction. She closed the superficial wounds under immediate supervision and fabricated the split with bandages. SIGNATURE: Nicolas Florence MD PATIENT NAME: Neris Tarango DATE: June 15, 2018 TIME: 1:53 PM PAGER/CONTACT #: [facility] 06-15-2018 PLAN OF CARE HNO ID: [id number] Author: Laverne Nguyen (Chief Creative Officer) Service: Pharmacy Author Type: ? Type: Plan of Care Filed: 06/15/2018 2:47 PM Note Text: PET CARE ASSISTANT BEDSIDE DELIVERY SURVEY 1. Patient to use [facility] Bedside Delivery - YES Insurance Information as follows: 2. Insurance card on file - YES 3. Credit card for payment - YES PHARMACY BEDSIDE DELIVERY SERVICE Patient Name: Neris Tarango The marked outpatient medications were Filled at: [place] and delivered to the patient's bedside to pharm p/u Medication List START taking these medications HYDROcodone-acetaminophen 5-325 mg per tablet Commonly known as: NORCO Take 1 tablet by mouth every 6 hours as needed for up to 7 days. X CONTINUE taking these medications * albuterol HFA 90 mcg/actuation inhaler Commonly known as: PROAIR HFA Inhale 2 Puffs as instructed every 4 hours as needed for Wheezing/Shortness of Breath. * albuterol 2.5 mg /3 mL (0.083 %) nebulizer solution Commonly known as: PROVENTIL Use 3 mL via nebulizer every 4 hours as needed for Wheezing/Shortness of Breath. Use over 5-15minutes. COMPOUNDED PRESCRIPTION 1 Each every 4 hours as needed. NEBULIZER FOR HOME USE. DX: J45.41 therapeutic multivitamin tablet Commonly known as: THERA VITAMIN * This list has 2 medication(s) that are the same as other medications prescribed for you. Read the directions carefully, and ask your doctor or other care provider to review them with you. You might also be taking other medications not listed above. If you have questions about any of your other medications, talk to the person who prescribed them or your Primary Care Provider. Laverne Nguyen (Chief Creative Officer) PAGER: [phone] June 15, 2018 2:[address] [facility] PT EDon 06-15-2018 PT ED HNO ID: [id number] Author: Savanah Velazco) MAGEN Díaz Service: Nursing Author Type: Registered Nurse Type: Patient Education Filed: 06/15/2018 3:47 PM Note Text: POST OP LEARNING RESPONSE INSTRUCTION PROVIDED TO: Patient and family member METHOD OF INSTRUCTION: Individual instruction Written instruction - handouts Verbal instruction PATIENT / FAMILY RESPONSE: Information received as demonstrated by interest and questions FOLLOW-UP PLAN: Patient instructed to call with any further issues SUPPLEMENTAL MATERIAL: Post op discharge instructions REFERRAL (RECOMMENDATION): None Electronically Signed By: Savanah Díaz RN In Department: [facility] PT ED HNO ID: [id number] Author: Doyle Velazco) MAGEN Castaneda Service: Nursing Author Type: Registered Nurse Type: Patient Education Filed: 06/15/2018 10:18 AM Note Text: PRE OP LEARNING ASSESSMENT PROCEDURE/SURGERY: SURGERY: Arthroplasty carpometacarpal joints left hand READINESS TO LEARN COGNITIVE ABILITY: Alert and oriented MOTIVATION TO LEARN: Eager FAMILY SUPPORT: High - Very involved in pt care PATIENT LEARNS BEST BY: Written Instruction - Hand-outs Verbal Instruction FACTORS AFFECTING LEARNING: None PHYSICAL LIMITATIONS AFFECTING LEARNING: None Electronically Signed By: Doyle Castaneda RN In Department: [facility] SURGERY [facility] NURSING PROGon 06-07-2018 NURSING PROG HNO ID: [id number] Author: Tory MarroquinRnSonia Meyers RN Service: ? Author Type: Registered Nurse Type: Nursing Progress Note Filed: 06/07/2018 10:46 AM Note Text: PACC Nurse Progress Note History AND Physical: PACC Visit Date: 06/06/18 Original HANDP Date: N/A ED visit Date: N/A Outside HANDP Scanned Date: N/A Labs Within Last 6 Months: N/A Imaging Within Last 12 Months: X-ray-left wrist Date of test: 04/06/18 See chart Cardiac Testing: N/A Last Menstrual Period: LMP Date: N/A Postmenopausal >1yr: Yes, S/P Hysterectomy: NoBMI Percentile (PEDS): N/A Risk Assessment: N/A Anesthesia Review: N/A Narrative: Per HPI: Asthma Pre-op Considerations: N/A Chart Check: COMPLETED Tory Meyers RN June 07, 2018 10:[address] [facility] HISTORY PHYSICALon 9 HISTORY PHYSICAL HNO ID: [id number] Author: Stefany Mckenna Service: ? Author Type: Nurse Practitioner Type: HANDP Filed: 06/06/2018 11:34 AM Note Text: HISTORY AND PHYSICAL EXAMINATION SERVICE DATE: 06/06/2018 SERVICE TIME: 11:00 AM PRIMARY CARE PHYSICIAN: Audra Cedillo III MD REASON FOR VISIT: Neris Tarango is a 63 year old female who is scheduled for left thumb, carpal metacarpal arthroplasty with ligament reconstruction an tendon interposition at the request of Dr. Nicolas Florence for consultation. My final recommendation will be communicated back to the requesting physician by way of shared medical record or letter. 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 Patient also has a cyst present on the wrist that has been present for the past year. Has noticed it growing, especially over the past week. Pain is constant and aching in sensation. Sharp pains occur occasionally with movement. Rest helps to alleviate some of the pain. Does interfere with sleep at times. Denies radiating pain or impaired sensorium. Has very little mold puller strength present in that hand. Did try a brace which didn't provide much relief. No prior injections. 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 03/17/2017 - Urinary calculus, unspecified Renal stones PAST SURGICAL HISTORY Procedure Laterality Date - CHOLECYSTECTOMY 03/18/10 - COLONOSCOP W/ OR W/O BRSH SPEC 04/14/2017 Colonoscopy - COLONOSCOPY W/BX 03/02/10 Random Biopsies-repeat in - CYSTO.PANENDO 2003 Cystoscopy kidney stone - EGD W/O BRSH SPECIMEN W/BX 03/02/10 Gastric polyps - EGD W/O OR W/BRUSH/WASH 04/14/2017 EGD - LAPAROSCOPY, SURGICAL, APPENDECTOMY 03/18/10 FAMILY HISTORY Problem Relation Age of Onset - Arthritis Mother had joint replacements - Hypertension Father - Stroke Father SOCIAL HISTORY: Social History Socioeconomic History Marital status: Spouse name: Not on file Number of children: Not on file Years of education: Not on file Highest education level: Not on file Social Needs Financial resource strain: Not on file Food insecurity - worry: Not on file Food insecurity - inability: Not on file Transportation needs - medical: Not on file Transportation needs - non-medical: Not on file Occupational History Not on file Tobacco Use Smoking status: Never Smoker Smokeless tobacco: Never Used Substance and Sexual Activity Alcohol use: Yes Alcohol/week: 1.5 oz Types: 1 Mixed Drinks per week Drug use: No Sexual activity: Not on file Other Topics Concerns: Not on file Social History Narrative Not on file Prior to Admission medications as of 06/06/18 1117 Medication Sig Last Dose Taking Nebulizer 1 Each every 4 hours as needed. NEBULIZER FOR HOME USE. DX: J45.41 Taking Yes albuterol (PROVENTIL) 2.5 mg /3 mL (0.083 %) nebulizer solution Use 3 mL via nebulizer every 4 hours as needed for Wheezing/Shortness of Breath. Use over 5-15minutes. Taking Yes albuterol HFA (PROAIR HFA) 90 mcg/actuation inhaler Inhale 2 Puffs as instructed every 4 hours as needed for Wheezing/Shortness of Breath. Taking Yes THERAPEUTIC MULTIVITAMIN TAB Take one(1) tablet daily. Taking Yes No medication comments found. ALLERGIES Allergen Reactions - Adhesive Tape (Daly* Itching - Codeine GI Upset - Gluten Rash, Vomiting - Voltaren [Diclofena* GI Upset - Zithromax [Azithrom* GI Upset nausea REVIEW OF SYSTEMS: PAIN ASSESSMENT: Pain Pain Level: 6 Pain Location: Wrist-Left Description: Aching Frequency: Continuous Intervention: Medication General: No weight loss, malaise or fevers. Neuro: Postive for Headaches - associated with allergies. Denies TIAs, strokes, seizures or impaired sensorium. Respiratory: Positive for Asthma - aggravated by allergies, weather. Inhaler use varies, has been using more with blooming jarvis. Denies SOB with activity recent bronchitis, pneumonia or COPD. Cardiovascular: No history of HTN requiring medication, no history of angina, CHF, MT, cardiac surgery or stents. Denies rest pain, gangrene or revascularization/amputatio n for PVD. No history of cardiovascular symptoms or problems. GI: Positive for Heartburn - greasy foods, not often. Denies N/V/C/D/Abdominal Pain, difficulty swallowing, liver disease or blood in the stool. No history of IBS, crohn's disease or diverticulitis. : Positive for H/O kidney stones; surgical intervention in the past. Some still present but not bothersome. Denies dysuria, hematuria, frequency, urgency, incontinence, nocturia, recent UTIs or CKD. POWERBUILDER: Negative for abnormal vaginal bleeding, abnormal vaginal discharge. : Postmenopausal Endocrine: No history of diabetes. Has not taken steroids within the past 30 days. No history of endocrinological symptoms or problems. Hematology: (+) Easy bruising / bleeding. Borderline low iron in the past. Denies recent anemia or bleeding/clotting disorders. Oncology: No history of CA metastasis, chemo within 30 days, or radiotherapy within 90 days. Has not lost 10% of body wt in 6 months. No history of oncological symptoms or problems. Psych: No history of psychiatric symptoms or problems. Musculoskeletal: See HPI. Denies additional joint pain. No swelling of extremities. Skin: Negative for lesions, rash and itching. Objective PHYSICAL EXAM: VITALS: BP 137/59 Pulse 79 Temp (Src) 98.9 (Tympanic) Resp 16 Ht 5' 8 (1.73m) Wt 146 lb (66.2kg) SpO2 99% BMI 22.20 kg/(m2). General: Alert and oriented, No acute distress, Healthy appearance Skin: Normal color, no rash, no lesions. HEENT: Pupils equal, round and reactive., No carotid bruits Cardiovascular: Normal S1 AND S2, no rubs, murmurs or gallops. No JVD. Pulse regular. Lungs: Normal breath sounds, no wheezes or crackles., No chest deformities or chest wall tenderness. Abdomen: Soft, non-tender, no rigidity., No masses or organomegaly. Extremities: No deformity, no edema or tenderness, no joint swelling or clubbing. Neurological: Normal cognition and motor skills. Gait normal. No weakness or sensory deficit. Pulses: Carotid and radial pulses normal +2. Pedal pulses normal +2. Diagnostic tests reviewed for today's visit: Lab Value Units Date High Low HB No results within date range. HCT No results within date range. WBC No results within date range. PLT No results within date range. NA No results within date range. K No results within date range. GLUC No results within date range. BUN No results within date range. CREAT No results within date range. PTSEC No results within date range. INR No results within date range. APTT No results within date range. ALT No results within date range. AST No results within date range. TBILI No results within date range. TSH No results within date range. Lab Value Units Date High Low HCGQT No results within date range. UHCG No results within date range. HCG, BODY* No results within date range. Lab Value Units Date High Low ABORHD No results within date range. ABSCREEN No results within date range. No results found for: HBA1C Most recent labs Most recent imaging All in Epic Assessment/Plan Asthmatic bronchitis Assessment: Stable. Aggravated by allergies/weather changes. Using inhaler daily currently. PLAN: Use inhaler DOS if needed. METS: Climb a flight of stairs or walk up a hill (5.50 METs) Patient denies any chest pain or undue shortness of breath with the above physical activity. ASA Class: 2 ANESTHESIA FINDINGS: Intubation History: No history of difficult intubation Significant Anesthesia Considerations: Slow emergence Airway Exam: General: Normal appearance Mallampati Score is CLASS I ULBT: Unable to perform Neck: Distance from hyoid to mentum during neck extension is at least 3 finger breaths, Pain with neck movement Mouth: Normal tongue size and Mouth opening greater than 2 finger breaths Dentition: Intact Airway History: No abnormal airway history STOP BANG Score: Criteria: Age over 50 (63 year old) Score = 1 PLAN This patient is optimally prepared for surgery. CONSULTS: Patient does not require consults for optimization at this time. The Following Tests/Procedures Have Been Initiated: Labs not indicated per PACC protocol, EKG not indicated per PACC protocol Planned Anesthetic: Per anesthesia choice Instructions Given to Patient: Patient given verbal and written preop instructions and voices comprehension and compliance. @ASSESSEND@ SIGNATURE: Stefany Mckenna APRN.CNP PATIENT NAME: Neris Tarango DATE: June 06, 2018 TIME: 11:00 AM PAGER/CONTACT #: 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): Tess Neal Ma 05/22/2018 10:24 AM Signed Patient scheduled for Left CMC arthroplasty with LRTI. on 06/15/18. Surgical request completed. Kimberlyn Hanson [facility] [place]/22/2018 10:57 AM Signed Noted in [place]. Tess Neal Ma 05/23/2018 7:24 AM Signed Surgery confirmation letter and post op appointments mailed to patient. Amelia Crocker RN 05/24/2018 4:48 PM Signed OR scheduled. Progress Notes ([facility]): Samantha Hatch RN 06/07/2018 6:37 AM Signed AMB ROOMING INTAKE FLOWSHEET DATA Risk Screening Do you have concerns about personal safety or safety in the home?: No Pain Pain Level: 5 Pain Location: Finger(L thumb) Description: Aching, Sharp Duration Amount of Time: 1 Duration Units: Years Frequency: Continuous Intervention: Relaxation, Reposition Patient presents with: Pre-Op Exam: CMC arthroplasty L thumb Patient is here to sign consent and schedule surgery. Nicolas Florence MD 06/07/2018 6:37 AM Signed Nicolas Florence MD Department of Orthopaedics Orthopaedics [address] [place] [id number] Dept: [phone] Dept May 21, 2018 CHIEF COMPLAINT: Pre-Op Exam (CMC arthroplasty L thumb) Ms. Neris Tarango is a 63 year old female who returns to discuss her left thumb. She has been having quite a bit of problems with the thumb. She has a baseline pain level not of 5/10. She is now interested in surgery. ASSESSMENT: M18.12 Primary osteoarthritis of first carpometacarpal joint of left hand (primary encounter diagnosis) M79.645 Pain of left thumb M67.49, M71.39, M67.89 Ganglion and cyst of synovium, tendon and bursa PLAN: The risks, benefits, alternatives and potential complications concerning surgery and continued non op. She wishes to pursue surgery. OBJECTIVE: Ms. Neris Tarango is a pleasant 63 year old in no apparent distress. Gen:There were no vitals taken for this visit. nl development, non obese, no deformities ENT: Normocephalic, normal hearing, moist mucosa CV: Pulses:Radial= 2+ and symmetric, capillary refill < 2 secs, no peripheral edema/varicosities Skin: no rash, bruising or lesions. Good turgor. Psych: cooperative and appropriate, alert and oriented x 3, good mood and affect. Musculoskeletal: She remains ensitive from pain surrounding the basal joint and the thumb in its entirety. There are 2 small ganglion cysts, one just off the radial side of the CMC joint. She is quite tender in this area. A second, less prominent as directly over the dorsal portion of the joint. Pain on any palpation of the joint. Pain and very minimal crepitance and grind testing. Neurologic exam is intact. Imaging: IMPRESSION: Mild basilar thumb joint arthrosis and soft tissue fullness radially (history of ganglion cyst). Manager Sterile: SANDOVAL ? Transcribe Date/Time: Apr 07 2018 ?4:57P Dictated by : Slade MISHRA MD This examination was interpreted and the report reviewed and electronically signed by: Slade MISHRA MD on Apr 07 2018 ?4:58PM ?EST ? ? Results-Findings ? * * *Final Report* * * DATE OF EXAM: Apr 06 2018 11:22AM ? WOX ? [id number] ?- ?XR WRIST 3V PA/LAT/OBL LT ?/ PROCEDURE REASON: multiple diagnoses ?? ? * * * * Physician Interpretation * * * * ?EXAM: XR WRIST 3V PA/LAT/OBL LT HISTORY: Ganglion cyst Left wrist pain ?. VIEWS: PA, oblique and lateral left wrist. COMPARISON: No relevant comparison. FINDINGS: Mild basilar thumb joint arthrosis and soft tissue fullness radially (history of ganglion cyst). ?No osseous erosions. ?Mild triscaphe joint narrowing. ?Maintained radiocarpal joint. Supporting Subjective Information Below: Past Surgical History: PAST SURGICAL HISTORY Procedure Laterality Date - COLONOSCOP W/ OR W/O BRSH SPEC 04/14/2017 Colonoscopy - COLONOSCOPY W/BX 03/02/10 Random Biopsies-repeat in -2020 - CYSTO.PANENDO 2004 Cystoscopy kidney stone - EGD W/O BRSH SPECIMEN W/BX 03/02/10 Gastric polyps - EGD W/O OR W/BRUSH/WASH 04/14/2017 EGD - LAP CHOLECYSTECT/CHOLANGIOGRAPH Y 03/18/10 - LAPAROSCOPY, SURGICAL, APPENDECTOMY 03/18/10 - MAMM DIAG UNI 2009 Medications: Current Outpatient Medications: Nebulizer 1 Each every 4 hours as needed. NEBULIZER FOR HOME USE. DX: J45.41 albuterol (PROVENTIL) 2.5 mg /3 mL (0.083 %) nebulizer solution Use 3 mL via nebulizer every 4 hours as needed for Wheezing/Shortness of Breath. Use over 5-15minutes. albuterol HFA (PROAIR HFA) 90 mcg/actuation inhaler Inhale 2 Puffs as instructed every 4 hours as needed for Wheezing/Shortness of Breath. THERAPEUTIC MULTIVITAMIN TAB Take one(1) tablet daily. meloxicam (MOBIC) 15 mg tablet Take 1 tablet by mouth once daily. (Patient not taking: Reported on 05/21/2018 ) metoclopramide HCl (REGLAN) 5 mg tablet Take 1 tablet by mouth twice daily before meals. (Patient not taking: Reported on 11/29/2017 ) No current facility-administered medications for this visit. Allergies: Adhesive Tape (Rosins); Codeine; Voltaren [Diclofenac Sodium]; Zithromax [Azithromycin] ROS: General (negative for fatigue, malaise, weight loss/gain) HEENT (negative for headache, earache, recent vision changes, sinus pain, sore throat) Respiratory (no recent shortness of breath, hemoptysis) CV (negative for chest tightness, palpitations) Musculoskeletal (see HPI) Psych (no depression, anxiety) This note was partially generated using Modulus voice recognition system, and there may be some incorrect words, spellings, and punctuation that were not noted in checking the note before saving. Nicolas Florence MD [facility] CNOVon 08-22-2017 OV Office Visit (AGGASTN) --------NERIS TARANGO ([id number]) 1955 FDate Time Provider Department08/22/17 9:15 AM NAIF CHILDRESS During your visit today, we recorded the following information about you: Blood pressure Weight Height 118/62 63 kg 1.727 Ysabel Childress MD 08/22/2017 10:37 AM SignedHPI:Neris Tarango is a 62 year old female who presents for follow up of fufrom gastric emptying study. Pt had a nl GES. Still has nonulcer dyspepsia.Current Outpatient Prescriptions:albuterol HFA (PROAIR HFA) 90 mcg/Actuation INHALATION inhaler TWO (2) [id number] NEEDED FOR COUGH OR WHEEZE.THERAPEUTIC MULTIVITAMIN TAB Take one(1) tablet daily.No current facility-administered medications for this visit.ALLERGIESAllergen Reactions- Adhesive Tape (Daly* Itching- Codeine GI Upset- Voltaren [Diclofena* GI Upset- Zithromax [Azithrom* GI Upset nauseaREVIEW OF SYSTEMS:GENERAL: No weight loss, malaise or fevers.HEENT: Negative for frequent or significant headaches, No changes in hearing orvision, no nose bleeds or other nasal problems.NECK: Negative for lumps, goiter, pain and significant neck swelling.RESPIRATORY: Negative for cough, hemoptysis, wheezing or shortness of breathCARDIOVASCULAR: Negative for chest pain, leg swelling or palpitationsGI: See HPIGU: No history of dysuria, frequency or incontinenceMUSCULOSKELETAL : Negative for joint pain or swelling, back pain or muscle pain.SKIN: Negative for lesions, rash, and itchingPSYCH: Negative for sleep disturbance, mood disorder and recent psychosocialstressorsNEURO: No history of headaches, syncope, paralysis, seizures or tremorsPHYSICAL EXAMINATION:BP 118/62 Ht 5' 8 (1.73m) Wt 139 lb (63.1kg) BMI 21.14 kg/(m2).GENERAL APPEARANCE: Well appearing, alert, in no acute distress, well-hydrated,well nourished.EYES: No icterusABDOMEN: Normal, soft, non-tender, no masses or organomegaly.ASSESSMENT AND PLAN:ASSESSMENT/PLAN:1. 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.8, ICD10: K30- smaller more freq meals- METOCLOPRAMIDE 5 MG TABLETNaif Childress, MDReferring Provider: SELF [[id number]]Allergies As of Date: 08/22/2017 Noted Allergy ReactionADHESIVE TAPE (ROSINS) 02/18/2010 9 - ItchingCODEINE 04/21/2005 8 - GI UpsetVOLTAREN (DICLOFENAC SODIUM) 07/07/2005 8 - GI UpsetZITHROMAX (AZITHROMYCIN) 04/06/2007 8 - GI Upset Comments: nauseaDate Reviewed: 08/22/2017Reviewed by: Naif Childress - Fully AssessedReason for Visit: fu from gastric emptying study [Other]Primary Visit Diagnosis:Nonulcer dyspepsia [K30]Order(s):metoclopramid e HCl (REGLAN) 5 mg tabletTake 1 tablet by mouth twice daily before meals.Disp: 60 tabletRfl: 3Prescriptions as of 08/22/2017 Sig: ALBUTEROL SULFATE HFA 90 MCG/* TWO (2) PUFFS Q4H NEEDED F* THERAPEUTIC MULTIVITAMIN TABL* Take one(1) tablet daily. METOCLOPRAMIDE 5 MG TABLET Take 1 tablet by mouth twice *Problem List As Of Date 08/22/2017 Noted Resolved URINARY CALCULUS NOS [N20.9] More... 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.5] INVALID FOR*Prescriptions ordered this encounter Disp Refills Start End METOCLOPRAMIDE 5 MG TABLET 60 t* 3 08/22/2017 Route: ORAL Sig: Take 1 tablet by mouth twice daily before meals.Level of Service: EST PATIENT VISIT LEVEL 3 [[id number]]Disposition: Return in about 2 months (around 10/23/2017).Follow-up and Disposition History RecordedEncounter Number: [id number] Status:Closed by NAIF CHILDRESS MD on 08/22/17 Normal [facility] PROGRESSon 08-22-2017 PROGRESS HNO ID: [id number] thor: Naif Means: (none)Author Type: PhysicianType: Progress NotesFiled: 08/22/2017 10:37 AMNote Text:HPI:Neris Tarango is a 62 year old female who presents for follow up offu from gastric emptying study. Pt had a nl GES. Still has nonulcerdyspepsia.Current Outpatient Prescriptions:albuterol HFA (PROAIR HFA) 90 mcg/Actuation INHALATION inhaler TWO (2)PUFFS Q4H NEEDED FOR COUGH OR WHEEZE.THERAPEUTIC MULTIVITAMIN TAB Take one(1) tablet daily.No current facility-administered medications for this visit.ALLERGIESAllergen Reactions- Adhesive Tape (Daly* Itching- Codeine GI Upset- Voltaren [Diclofena* GI Upset- Zithromax [Azithrom* GI Upset nauseaREVIEW OF SYSTEMS:GENERAL: No weight loss, malaise or fevers.HEENT: Negative for frequent or significant headaches, No changes inhearing or vision, no nose bleeds or other nasal problems.NECK: Negative for lumps, goiter, pain and significant neck swelling.RESPIRATORY: Negative for cough, hemoptysis, wheezing or shortness ofbreathCARDIOVASCULAR: Negative for chest pain, leg swelling or palpitationsGI: See HPIGU: No history of dysuria, frequency or incontinenceMUSCULOSKELETAL : Negative for joint pain or swelling, back pain or musclepain.SKIN: Negative for lesions, rash, and itchingPSYCH: Negative for sleep disturbance, mood disorder and recentpsychosocial stressorsNEURO: No history of headaches, syncope, paralysis, seizures or tremorsPHYSICAL EXAMINATION:BP 118/62 Ht 5' 8 (1.73m) Wt 139 lb (63.1kg) BMI 21.14 kg/(m2).GENERAL APPEARANCE: Well appearing, alert, in no acute distress,well-hydrated, well nourished.EYES: No icterusABDOMEN: Normal, soft, non-tender, no masses or organomegaly.ASSESSMENT AND PLAN:ASSESSMENT/PLAN:1. 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.8, ICD10: K30- smaller more freq meals- METOCLOPRAMIDE 5 MG Louis Childress MD Normal [facility] NM GASTRIC EMPTYING SOLIDon 07-27-2017 NM GASTRIC EMPTYING SOLID Performed at [facility] APPROVED BY: JOANN MCCOY MD SOLID MEAL GASTRIC EMPTYING STUDY (07/27/2017): CLINICAL HISTORY: Abdominal pain. To assess for abnormal gastric emptying of a solid meal. TECHNIQUE: 1.0 mCi Tc-99m sulfur colloid was given orally in a meal consisting of 4 oz Egg Beaters, consumed over 5 to 10 minutes. RESULT: Solid study demonstrates:- 54% gastric retention at 1hr (normal range, 37-90%), - 39% retention at 2hr (normal range, 30-60%), and - 6% retention at 4hr (normal range, 0-10%). There is no evidence of accelerated emptying of gastric contents, with 54% retention at 1hr (rapid emptying is <30% retention at 1hr). IMPRESSION: NORMAL RATE OF GASTRIC EMPTYING OF SOLID MEAL. Normal [facility] CNOVon 06-28-2017 CNOV Office Visit (AGGASTACC) NERIS TARANGO ([id number]) 1955 FDate Time Provider Department06/28/17 3:30 PM NAIF CHILDRESS AGGASTACC During your visit today, we recorded the following information about you: Pulse Blood pressure Weight Height 83/minute 120/66 63 kg 1.727 Naif Joseph 06/28/2017 4:50 PM SignedHPI:Neris Tarango is a 62 year old female who presents for Abdominal Pain. Ptis here for postprandial epig pain that has been going on for the last 3-4 yrs,worse lately. No wt loss, no change in b habits, no blood. Has postprandialnausea, no sig reflux, dysphagia. Pt had EGD and colonoscopy by Dr. Tess Melo which did not show anything significant by review including path. Hxof sobeida. CT w/o contrast in Feb neg except ? Hazy mesenteric densities RepeatCT scan w contrast didn't show anything significant. 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- Urinary calculus, unspecified Renal stonesPAST SURGICAL HISTORYProcedure Laterality Date- COLONOSCOP W/ OR W/O BRSH SPEC 04/14/2017 Colonoscopy- COLONOSCOPY W/BX 03/02/10 Random Biopsies-repeat in - CYSTO.PANENDO 2003 Cystoscopy kidney stone- EGD W/O BRSH SPECIMEN W/BX 03/02/10 Gastric polyps- EGD W/O OR W/BRUSH/WASH 04/14/2017 EGD- LAP CHOLECYSTECT/CHOLANGIOGRAPH Y 03/18/10- LAPAROSCOPY, SURGICAL, APPENDECTOMY 03/18/10- MAMM DIAG UNI 2010FAMILY HISTORYProblem Relation Age of Onset- Hypertension Father- Stroke Father- Arthritis Mother had joint replacementsSocial History Marital status: Spouse name: Years of education: Number of children:Social History Main Topics Smoking status: Never Smoker Smokeless tobacco: Never Used Alcohol use: Yes Comment: occasionally Drug use: NoALLERGIESAllergen Reactions- Adhesive Tape (Daly* Itching- Codeine GI Upset- Voltaren [Diclofena* GI Upset- Zithromax [Azithrom* GI Upset nauseaREVIEW OF SYSTEMSGENERAL: No weight loss, malaise or fevers.HEENT: Negative for frequent or significant headaches, No changes in hearing orvision, no nose bleeds or other nasal problems.NECK: Negative for lumps, goiter, pain and significant neck swelling.RESPIRATORY: Negative for cough, hemoptysis, wheezing or shortness of breathCARDIOVASCULAR: Negative for chest pain, leg swelling or palpitationsGI: See HPIGU: No history of dysuria, frequency or incontinenceMUSCULOSKELETAL : Negative for joint pain or swelling, back pain or muscle pain.SKIN: Negative for lesions, rash, and itchingPSYCH: Negative for sleep disturbance, mood disorder and recent psychosocialstressorsNEURO: No history of headaches, syncope, paralysis, seizures or tremorsPHYSICAL EXAMINATION:BP 120/66 Pulse 83 Ht 5' 8 (1.73m) Wt 139 lb (63.1kg) BMI 21.14kg/(m2).GENERAL APPEARANCE: Well appearing, alert, in no acute distress, well-hydrated,well nourished..SKIN: Skin color, texture, turgor normal, no suspicious rashes or lesions.EYES: Anicteric sclera. Pupils are equally round and reactive to light.Extraocular movements are intact. .NECK: Supple, no adenopathy; thyroid symmetric, normal size, no bruits.LUNGS: Lungs clear to auscultation. No wheezing, rhonchi, rales.HEART: RRR without murmur, gallop, or rubs. No ectopy.ABDOMEN: Normal, soft, non-tender, no masses or organomegaly.EXTREMITIES: No deformities, edema, skin discoloration, clubbing or cyanosis.NEUROLOGIC: Gait normal. Sensation and strength grossly intact..ASSESSMENT AND PLAN:ASSESSMENT/PLAN:1. Early satiety - ICD9: 780.94, ICD10: R68.81 (primary diagnosis)- NM GASTRIC EMPTYING SOLID2. Non-ulcer dyspepsia - ICD9: 536.8, ICD10: K30- NM GASTRIC EMPTYING SOLIDMaurice Chin Provider: AUDRA CEDILLO III [[id number]]Allergies As of Date: 06/28/2017 Noted Allergy ReactionADHESIVE TAPE (ROSINS) 02/18/2010 9 - ItchingCODEINE 04/21/2005 8 - GI UpsetVOLTAREN (DICLOFENAC SODIUM) 07/07/2005 8 - GI UpsetZITHROMAX (AZITHROMYCIN) 04/06/2007 8 - GI Upset Comments: nauseaDate Reviewed: 06/28/2017Reviewed by: Naif Childress - Fully AssessedReason for Visit: Abdominal Pain [1]Primary Visit Diagnosis:Early satiety [R68.81] Other Visit Diagnosis:Non-ulcer dyspepsia [K30]Order(s):NM GASTRIC EMPTYING SOLID [[id number]] Order #: [id number] FUTUREPrescriptions as of 06/28/2017 Sig: ALBUTEROL SULFATE HFA 90 MCG/* TWO (2) PUFFS Q4H NEEDED F* THERAPEUTIC MULTIVITAMIN TABL* Take one(1) tablet daily.Problem List As Of Date 06/28/2017 Noted Resolved URINARY CALCULUS NOS [N20.9] More... 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 Disc: Reason for discontinue is not on file. Linaclotide (LINZESS) 72 mcg capsule 14 c* 0 04/27/2017 06/28/2017 Route: ORAL Sig: Take 1 capsule by mouth once daily. Administer on an empty stomach. Swallow whole; DO NOT crush or chew. Disc: Reason for discontinue is not on file.Level of Service: NEW PATIENT VISIT LEVEL 3 [[id number]]Disposition: Return for pt may call for result.Follow-up and Disposition History RecordedLetter Text Naif Childress MDGastroenterology1 [facility] [address] ([facility])[place], [place] [phone] : Audra García have had the opportunity to evaluate your patient, Neris Tarango.Please see a copy of my impression and recommendations below.Thank you for allowing me to participate in the care of your patient. If youwould like additional details of our visit, please contact our office.Impression and Recommendations: ASSESSMENT/PLAN:1. Early satiety - ICD9: 780.94, ICD10: R68.81 (primary diagnosis)- NM GASTRIC EMPTYING SOLID2. Non-ulcer dyspepsia - ICD9: 536.8, ICD10: K30- NM GASTRIC EMPTYING SOLIDKenn Chin Jeffrey R Neher, MDEncounter Number: [id number] Status:Closed by NAIF CHILDRESS MD on 06/28/17 [facility] PROGRESSon 06-28-2017 PROGRESS HNO ID: [id number] thor: Naif Childress RayService: (none)Author Type: PhysicianType: Progress NotesFiled: 06/28/2017 4:50 PMNote Text:HPI:Neris Tarango is a 62 year old female who presents for Abdominal Pain. Pt is here for postprandial epig pain that has been going on for the last3-4 yrs, worse lately. No wt loss, no change in b habits, no blood. Haspostprandial nausea, no sig reflux, dysphagia. Pt had EGD and colonoscopyby Dr. Tess Summers at [facility] which did not show anything significant byreview including path. Hx of sobeida. CT w/o contrast in Feb neg except ?Hazy mesenteric densities Repeat CT scan w contrast didn't show anythingsignificant. 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- Urinary calculus, unspecified Renal stonesPAST SURGICAL HISTORYProcedure Laterality Date- COLONOSCOP W/ OR W/O BRSH SPEC 04/14/2017 Colonoscopy- COLONOSCOPY W/BX 03/02/10 Random Biopsies-repeat in - CYSTO.PANENDO 2004 Cystoscopy kidney stone- EGD W/O BRSH SPECIMEN W/BX 03/02/10 Gastric polyps- EGD W/O OR W/BRUSH/WASH 04/14/2017 EGD- LAP CHOLECYSTECT/CHOLANGIOGRAPH Y 03/18/10- LAPAROSCOPY, SURGICAL, APPENDECTOMY 03/18/10- MAMM DIAG UNI 2010FAMILY HISTORYProblem Relation Age of Onset- Hypertension Father- Stroke Father- Arthritis Mother had joint replacementsSocial History Marital status: Spouse name: Years of education: Number of children:Social History Main Topics Smoking status: Never Smoker Smokeless tobacco: Never Used Alcohol use: Yes Comment: occasionally Drug use: NoALLERGIESAllergen Reactions- Adhesive Tape (Daly* Itching- Codeine GI Upset- Voltaren [Diclofena* GI Upset- Zithromax [Azithrom* GI Upset nauseaREVIEW OF SYSTEMSGENERAL: No weight loss, malaise or fevers.HEENT: Negative for frequent or significant headaches, No changes inhearing or vision, no nose bleeds or other nasal problems.NECK: Negative for lumps, goiter, pain and significant neck swelling.RESPIRATORY: Negative for cough, hemoptysis, wheezing or shortness ofbreathCARDIOVASCULAR: Negative for chest pain, leg swelling or palpitationsGI: See HPIGU: No history of dysuria, frequency or incontinenceMUSCULOSKELETAL : Negative for joint pain or swelling, back pain or musclepain.SKIN: Negative for lesions, rash, and itchingPSYCH: Negative for sleep disturbance, mood disorder and recentpsychosocial stressorsNEURO: No history of headaches, syncope, paralysis, seizures or tremorsPHYSICAL EXAMINATION:BP 120/66 Pulse 83 Ht 5' 8 (1.73m) Wt 139 lb (63.1kg) BMI 21.14kg/(m2).GENERAL APPEARANCE: Well appearing, alert, in no acute distress,well-hydrated, well nourished..SKIN: Skin color, texture, turgor normal, no suspicious rashes or lesions.EYES: Anicteric sclera. Pupils are equally round and reactive to light.Extraocular movements are intact. .NECK: Supple, no adenopathy; thyroid symmetric, normal size, no bruits.LUNGS: Lungs clear to auscultation. No wheezing, rhonchi, rales.HEART: RRR without murmur, gallop, or rubs. No ectopy.ABDOMEN: Normal, soft, non-tender, no masses or organomegaly.EXTREMITIES: No deformities, edema, skin discoloration, clubbing orcyanosis.NEUROLOGIC: Gait normal. Sensation and strength grossly intact..ASSESSMENT AND PLAN:ASSESSMENT/PLAN:1. Early satiety - ICD9: 780.94, ICD10: R68.81 (primary diagnosis)- NM GASTRIC EMPTYING SOLID2. Non-ulcer dyspepsia - ICD9: 536.8, ICD10: K30- NM GASTRIC EMPTYING SOLIDNaif Childress MD [facility] Vital Signs Date Time Vital Sign Value Performing Clinician Faci lity 11-07-2022 13:28-0400 Body height 172.[address] Kesha Phillips Work Phone: [facility] 11-07-2022 13:28-0400 Body mass index (BMI) [Ratio] 21.6 kg/m2 Dr. Kesha Phillips Work Phone: [facility] 11-07-2022 13:28-0400 Body weight 64.[address] Kesha Phillpis Work Phone: [facility] 11-07-2022 13:28-0400 Diastolic blood pressure 78 mm[Hg] Dr. Kesha Phillips Work Phone: [facility] 11-07-2022 13:28-0400 Heart rate 72 /min Dr. Kesha Phillips Work Phone: [facility] 11-07-2022 13:28-0400 Respiratory rate 16 /min Dr. Kesha Phillips Work Phone: [facility] 11-07-2022 13:28-0400 Systolic blood pressure 128 mm[Hg] Dr. Kesha Phillips Work Phone: [facility] 11-08-2021 15:52-0400 Diastolic blood pressure 85 mm[Hg] Dr. Kesha Phillips Work Phone: [facility] Work Phone: 11-08-2021 15:52-0400 Systolic blood pressure 140 mm[Hg] Dr. Kesha Phillips Work Phone: [facility] Work Phone: 11-08-2021 15:15-0400 Body height 172.[address] Kesha Phillips Work Phone: [facility] Work Phone: 11-08-2021 15:15-0400 Body mass index (BMI) [Ratio] 20.8 kg/m2 Dr. Kesha Phillips Work Phone: [facility] Work Phone: 11-08-2021 15:15-0400 Body weight 62.[address] Kesha Phillips Work Phone: [facility] Work Phone: 11-08-2021 15:15-0400 Heart rate 71 /min Dr. Kesha Phillips Work Phone: [facility] Work Phone: 11-08-2021 15:15-0400 Respiratory rate 16 /min Dr. Kesha Phillips Work Phone: [facility] Work Phone: 06-11-2021 10:24-0400 Body height 172.[address] Kesha Phillips Work Phone: [facility] Work Phone: 06-11-2021 10:24-0400 Body mass index (BMI) [Ratio] 21.4 kg/m2 Dr. Kesha Phillips Work Phone: [facility] Work Phone: 06-11-2021 10:24-0400 Body weight 64.[address] Kesha Phillips Work Phone: [facility] Work Phone: 06-11-2021 10:24-0400 Diastolic blood pressure 68 mm[Hg] Dr. Kesha Phillips Work Phone: [facility] Work Phone: 06-11-2021 10:24-0400 Heart rate 80 /min Dr. Kesha Phillips Work Phone: [facility] Work Phone: 06-11-2021 10:24-0400 Respiratory rate 16 /min Dr. Kesha Phillips Work Phone: [facility] Work Phone: 06-11-2021 10:24-0400 Systolic blood pressure 128 mm[Hg] Dr. Kesha Phillips Work Phone: [facility] Work Phone: 05-18-2021 03:03-0400 Heart rate 76 /min Dr. Coy Sorto Work Phone: [facility] Work Phone: 05-18-2021 03:03-0400 Respiratory rate 17 /min Dr. Coy Sorto Work Phone: [facility] Work Phone: 05-18-2021 03:03-0400 SaO2% (BldA) [Mass fraction] 97 % Dr. Coy Sorto Work Phone: [facility] Work Phone: 05-18-2021 02:13-0400 Diastolic blood pressure 71 mm[Hg] Dr. Coy Sorto Work Phone: [facility] Work Phone: 05-18-2021 02:13-0400 Systolic blood pressure 125 mm[Hg] Dr. Coy Sorto Work Phone: [facility] Work Phone: 05-17-2021 23:13-0400 Body height 172.[address] Coy Sorto Work Phone: [facility] Work Phone: 05-17-2021 23:13-0400 Body mass index (BMI) [Ratio] 21.6 kg/m2 Dr. Coy Sorto Work Phone: [facility] Work Phone: 05-17-2021 23:13-0400 Body temperature 96.6 [degF] Dr. Coy Sorto Work Phone: [facility] Work Phone: 05-17-2021 23:13-0400 Body weight 64.[address] Coy Sorto Work Phone: [facility] Work Phone: 03-16-2021 10:08-0500 Body mass index (BMI) [Ratio] 21.1 kg/m2 Dr. Coy Sorto Work Phone: [facility] Work Phone: 03-16-2021 10:08-0500 Body weight 63.[address] Coy Sorto Work Phone: [facility] Work Phone: Encounters Encounter Date Encounter Type Care Provider Facility Start: 12-23-2024 End: 12-23-2024 ambulatory Naga Francis Facility:[facility] Start: 11-25-2024 End: 11-25-[address] Kesha Phillips MD Work Phone: -[facility]patient [facility] Start: 11-25-2024 End: 11-25-[address] Kesha Phillips MD -[facility] Work Phone: Start: 11-25-2024 End: 11-25-2024 ambulatory Kesha Phillips Facility:[facility] Start: 04-02-2024 End: 04-02-2024 ambulatory Kesha Phillips Facility:[facility] Start: 01-22-2024 End: 01-22-2024 ambulatory Yuli Ramirez Facility:[facility] Start: 12-25-2023 ambulatory Sebastien Reza Facility:[facility] Start: 12-25-2023 End: 12-25-2023 ambulatory Mathieu Shearer Rayne EASTON Facility:[facility] Start: 11-07-2022 End: 11-07-[address] Kesha Phillips Work Phone: [facility] Work Phone: Start: 11-04-2022 Non-patient / Non-visit Dr. Kesha Phillips Work Phone: [facility] Start: 11-04-2022 End: 11-04-[address] Kesha Phillips Work Phone: [facility] Work Phone: Start: 11-04-2022 End: 11-04-[address] [facility] Work [facility]: Start: 01-21-2022 End: 01-21-[address] Kesha Phillips Work Phone: [facility] Work Phone: Start: 01-21-2022 End: 01-21-[address] [facility] Start: 11-08-2021 End: 11-08-[address] Kesha Phillips Work Phone: [facility] Start: 09-21-2021 Non-patient / Non-visit Dr. Kesha Phillips Work Phone: [facility] Start: 09-21-2021 End: 09-21-[address] [facility] Start: 07-01-2021 End: 07-01-[address] Kesha Phillips Work Phone: [facility]-Physical Therapy Start: 06-11-2021 End: 06-11-[address] Kesha Phillips Work Phone: [facility] Start: 06-08-2021 Non-patient / Non-visit Dr. Kesha Phillips Work Phone: [facility] Start: 05-17-2021 End: 05-18-2021 Emergency department patient visit Dr. Coy Sorto Work Phone: [facility]-Emergency Department Start: 05-17-2021 End: 05-17-[address] Coy Sorto Work Phone: [facility]Ul[facility], [facility] Start: 04-07-2021 End: 04-07-[address] Coy Sorto Work Phone: [facility]-Outpatient Breast Imaging Start: 03-16-2021 End: 03-16-[address] Coy Sorto Work Phone: [facility] Start: 10-31-2017 Ambulatory NAIF CHILDRESS Facilit y:[facility] Start: 08-22-2017 End: 08-22-2017 Ambulatory NAIF CHILDRESS Facility:[facility] Start: 07-27-2017 End: 07-28-2017 Ambulatory NAIF CIHLDRESS Facility:[facility] Start: 06-28-2017 Ambulatory NAIF CHILDRESS Facilit y:[facility] Procedures Date Procedure Procedure Detail Performing Clinician Start: 11-25-2024 Screening mammography Jeferson Phillips MD Work Phone: Start: 09-21-2021 Radionuclide imaging of perfusion of myocardium under exercise stress Dr. Kesha Phillips Work Phone: Start: 05-18-2021 CT of head without contrast Dr. Coy Sorto Work Phone: Start: 05-17-[address] Courtney Sorto Work Phone: Start: 05-17-[address] Coy Sorto Work Phone: Start: 04-07-2021 Screening mammography Jeferson Sorto Work Phone: Plan of Treatment Date Care Activity Detail Author Start: 05-17-2021 Pelvic echography Pelvic (Non ) [facility] Work Phone: Start: 05-17-2021 Transvaginal echography Transvaginal Non- [facility] Work Phone: Patient Education ED BPV Vertigo ED Hypokalemia [facility] Work Phone: Patient referral [facility] Work Phone: Radionuclide imaging of perfusion of myocardium under exercise stress [facility] Work Phone: [facility] Work Phone: Immunizations Immunization Date Immunization Notes Care Provider Fa cility 05-21-2020 Covid (Pfizer) Dr. Zia Sorto Work Phone: [facility] 04-30-2020 Covid (Pfizer) Dr. Zia Sorto Work Phone: [facility] Payers Date Payer Category Payer Self-pay [id number] 2023 Medicare [id number] 1995 Unknown [id number] Unknown [id number] 2.16.8 [id number] Unknown [id number] .16.8 [id number] Unknown [id number] .16.8 [id number] Unknown [id number] 2.16.8 [id number] Unknown [id number] 2.16.8 [id number] Unknown [id number] 2.16.8 [id number] Unknown [id number] 2.16.8 [id number] Social History Date Type Detail Facility Start: 05-17-2021 End: 11-07-2022 Tobacco smoking status NHIS Unknown if ever smoked [facility] Start: 1955 Sex Assigned At Female [facility] Start: 10-14-2023 Tobacco smoking stat us IAIS Never smoked tobacco (finding) [facility] Sex Female [facility] Mental Status Date Assessment Result Facility 05-17-2021 Cognitive function Level Of Cons ciousness Awake;Alert;Appropriate;Follow s Commands [facility] Work Phone: Progress note 01-22-2021 Note Date & Type Note Facility 01-22-2021 Note HNO ID: [id number] Author: Minerva Stoddard Population Health Navigator Service: ? Author Type: ? Type: Progress Notes Filed: 01/22/2021 2:22 PM Note Text: POPULATION HEALTH NAVIGATION OUTREACH Action/FYI I left a voice message and a my chart message re: pcp No care everywhere Contact made with patient or family member? NO Pt identified by name and : NO Outreach Outcome/Action Unable to reach patient: Left message Acumaticahart message sent Reason for Outreach Attribution: Provider Off-boarding Payer: Payor: MAURISIO / Plan: MAURISIO BCBS FEP PPO / Product Type: PPO / Care Gap Reviewed:: Reminder: Reminder note to check Health Maintenance for items below Health Maintenance items due: SPIROMETRY Never done HEPATITIS C SCREENING Never done HIV SCREENING Never done ONE PNEUMOVAX PRIOR TO AGE 65 Never done PAP TESTING Never done HPV TESTING Never done SHINGRIX VACCINE(1 of 2) Never done DEPRESSION SCREENING due on 04/06/2019 DIABETES SCREEN due on 03/20/2020 MAMMOGRAM due on 04/12/2020 INFLUENZA(1) due on 10/21/2020 COVID-19 VACCINE(3 - Booster for Pfizer series) due on 11/20/2020 Advanced Directives Completed: Have you ever planned for future healthcare decisions with a power of immigration attorney, living will, or advance directives? No. Please bring a copy to your next appointment or email to [email or web address] Referrals: N/A Message Sent to Practice: NO Navigation Signature: Minerva Stoddard Population Health Navigator January 22, 2021 2:21 PM [facility] Clinical Note 01-22-2021 Note Date & Type Note Facility 01-22-2021 Note Patient Outreach (NE TNAV) NERIS TARANGO ([id number]) 1955 F Date Time Provider Department 01/22/21 MINERVA STODDARD NETSHERRIEV During your visit today, we recorded the following information about you: Minerva Stoddard Population Health Navigator 01/22/2021 2:22 PM Signed POPULATION HEALTH NAVIGATION OUTREACH Action/FYI I left a voice message and a my chart message re: pcp No care everywhere Contact made with patient or family member? NO Pt identified by name and : NO Outreach Outcome/Action Unable to reach patient: Left message Regalistert message sent Reason for Outreach Attribution: Provider Off-boarding Payer: Payor: MAURISIO / Plan: MAURISIO BCBS FEP PPO / Product Type: PPO / Care Gap Reviewed:: Reminder: Reminder note to check Health Maintenance for items below Health Maintenance items due: SPIROMETRY Never done HEPATITIS C SCREENING Never done HIV SCREENING Never done ONE PNEUMOVAX PRIOR TO AGE 67 Never done PAP TESTING Never done HPV TESTING Never done SHINGRIX VACCINE(1 of 2) Never done DEPRESSION SCREENING due on 04/06/2019 DIABETES SCREEN due on 03/20/2020 MAMMOGRAM due on 04/12/2020 INFLUENZA(1) due on 10/21/2020 COVID-19 VACCINE(3 - Booster for Pfizer series) due on 11/20/2020 Advanced Directives Completed: Have you ever planned for future healthcare decisions with a power of immigration attorney, living will, or advance directives? No. Please bring a copy to your next appointment or email to Referrals: N/A Message Sent to Practice: NO Navigation Signature: Minerva Stoddard Population Health Navigator January 22, 2021 2:21 PM Allergies As of Date: 01/22/2021 Noted Allergy Reaction ADHESIVE TAPE (ROSINS) 02/18/2010 9 - Itching CODEINE 04/21/2005 8 - GI Upset GLUTEN 06/06/2018 2 - Rash 11 - Vomiting NORCO (HYDROCODONE-ACETAMINOPHEN) 06/25/2018 5 - Intolerance Comments: Decreased heart rate VOLTAREN (DICLOFENAC SODIUM) 07/07/2005 8 - GI Upset ZITHROMAX (AZITHROMYCIN) 04/06/2007 8 - GI Upset Comments: nausea Date Reviewed: 11/06/2020 Reviewed by: Homero Koehler LPN - Fully Assessed Reason for Visit: Population Health Navigation Outreach [3910] Cmt: Offboarding Prescriptions as of 01/22/2021 - albuterol HFA (PROAIR HFA) 90 mcg/actuation inhaler Inhale 2 Puffs as instructed every 4 hours as needed for Wheezing/Shortness of Breath. - cefADROxil (DURICEF) 500 mg capsule Take 1 capsule by mouth twice daily. - Etodolac 500 mg tablet Take 1 tablet by mouth twice daily. - Nebulizer 1 Each every 4 hours as needed. NEBULIZER FOR HOME USE. DX: J45.41 - albuterol (PROVENTIL) 2.5 mg /3 mL (0.083 %) nebulizer solution Use 3 mL via nebulizer every 4 hours as needed for Wheezing/Shortness of Breath. Use over 5-15minutes. - THERAPEUTIC MULTIVITAMIN TAB Take one(1) tablet daily. 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 Author Type: Physician Type: Progress Notes Filed: 11/06/2020 4:37 PM Note Text: Chief Complaint Patient presents with: Abdominal Pain: pain after getting hit with 45lb supervisor concrete pipe plant on Monday evening HPI Neris Tarango is a 65 year old female who presents here today for Above Complaints.. States that she was getting a 45 lb supervisor concrete pipe plant out of a truck 5 days ago and it slid into her abdomen. Did not fall back and this did not land on her abdomen. She was able to push the senior applications developer back onto the truck. Had some discomfort after this injury, but was able to drive home. The next day pain significantly worsened and has continued to worsen. Described as sharp/pinching pain in her LLQ with radiation around to her back. Currently 6/10. Not taking anything OTC for pain or applying ice. Denies bruising, change in appetite, diarrhea, hematochezia, melena. Has not been evaluated in the ER as instructed on 11/04 and 11/05. Past medical history, appointments, medications, allergies reviewed. 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 - Urinary calculus, unspecified Renal stones Previous Surgical History PAST SURGICAL HISTORY Procedure Laterality Date - CHOLECYSTECTOMY 03/18/10 - COLONOSCOP W/ OR W/O [facility] SPEC 04/14/2017 Colonoscopy - COLONOSCOPY W/BX 03/02/10 Random Biopsies-repeat in - CYSTO.PANENDO 2004 Cystoscopy kidney stone - EGD W/O [facility] SPECIMEN W/BX 03/02/10 Gastric polyps - EGD W/O OR W/BRUSH/WASH 04/14/2017 EGD - LAPAROSCOPY, SURGICAL, APPENDECTOMY 03/18/10 - REPAIR INTERCARP/CARP-METACARP JT Left 06/15/2018 Left thumb CMC arthroplasty with LRTI, flexor carpi radialis Family History FAMILY HISTORY Problem Relation Age of Onset - Arthritis Mother had joint replacements - Hypertension Father - Stroke Father Patient Allergies ALLERGIES Allergen Reactions - Adhesive Tape ([place]aly* Itching - Codeine GI Upset - Gluten Rash, Vomiting - [place] [Hydrocodone-* Intolerance Decreased heart rate - Voltaren [Diclofena* GI Upset - Zithromax [Azithrom* GI Upset nausea Current Medications Current Outpatient Medications on File Prior to Visit Medication Sig - albuterol HFA (PROAIR HFA) 90 mcg/actuation inhaler Inhale 2 Puffs as instructed every 4 hours as needed for Wheezing/Shortness of Breath. - THERAPEUTIC MULTIVITAMIN TAB Take one(1) tablet daily. - cefADROxil (DURICEF) 500 mg capsule Take 1 capsule by mouth twice daily. - Etodolac 500 mg tablet Take 1 tablet by mouth twice daily. - Nebulizer 1 Each every 4 hours as needed. NEBULIZER FOR HOME USE. DX: J45.41 - albuterol (PROVENTIL) 2.5 mg /3 mL (0.083 %) nebulizer solution Use 3 mL via nebulizer every 4 hours as needed for Wheezing/Shortness of Breath. Use over 5-15minutes. No current facility-administered medications on file prior to visit. Social History Social History Tobacco Use - Smoking status: Never Smoker - Smokeless tobacco: Never Used Substance Use Topics - Alcohol use: Yes Alcohol/week: 2.5 standard drinks Types: 1 Mixed Drinks per week - Drug use: No Review of Symptoms REVIEW OF SYSTEMS GENERAL: No weight loss, malaise or fevers GI: See HPI EXAM: BP 138/76 Pulse 80 Resp 18 Wt 59.9 kg (132 lb) BMI 20.08 kg/m? General Appearance: Patient appears uncomfortable sitting in chair. Stating her yoga pants hurt abdomen where they compress. Skin: Skin color, texture, turgor normal, no suspicious rashes or lesions. Abdomen: Abdomen soft. Bowel sounds normal. Positive findings: tenderness marked and involuntary guarding LLQ and suprapubic. Health Maintenance List SPIROMETRY Never done HEPATITIS C SCREENING Never done HIV SCREENING Never done ONE PNEUMOVAX PRIOR TO AGE 67 Never done PAP TESTING Never done HPV TESTING Never done SHINGRIX VACCINE(1 of 2) Never done DEPRESSION SCREENING due on 04/06/2019 ANNUAL PCP TEAM CHRONIC DISEASE VISIT due on 12/15/2019 DIABETES SCREEN due on 03/20/2020 MAMMOGRAM due on 04/12/2020 INFLUENZA(1) due on 10/21/2020 DTAP,TDAP,TD(2 - Td or Tdap) due on 10/17/2022 LIPID SCREEN due on 04/06/2023 COLORECTAL CANCER SCREENING due on 04/14/2027 COVID-19 VACCINE Completed MENINGOCOCCAL CONJUGATE Aged Out ASSESSMENT/PLAN: 1. LLQ abdominal pain - ICD9: 789.04, ICD10: R10.32 Discussed with patient that I do not have a way to obtain STAT CT scan at 4pm on a Monday. Again recommended she go to [facility] ED to rule out internal injury which she was agreeable to. Report sent via ER Passport. F/u PRN after discharge. Corina Sorto MD [facility] Clinical Note 09-11-2020 Note Date & Type Note Facility 09-11-2020 Note Patient Outreach (IN TMMN) NERIS TARANGO ([id number]) 1955 F Date Time Provider Department 09/11/20 AUDRA CEDILLO III During your visit today, we recorded the following information about you: Allergies As of Date: 09/11/2020 Noted Allergy Reaction ADHESIVE TAPE (ROSINS) 02/18/2010 9 - Itching CODEINE 04/21/2005 8 - GI Upset GLUTEN 06/06/2018 2 - Rash 11 - Vomiting NORCO (HYDROCODONE-ACETAMINOPHEN) 06/25/2018 5 - Intolerance Comments: Decreased heart rate VOLTAREN (DICLOFENAC SODIUM) 07/07/2005 8 - GI Upset ZITHROMAX (AZITHROMYCIN) 04/06/2007 8 - GI Upset Comments: nausea Date Reviewed: 12/14/2018 Reviewed by: Brianne Hu Ma - Fully Assessed Visit Diagnosis:Encounter for screening mammogram for breast cancer [Z12.31] Order(s):[facility] SCREENING [facility] PATEL [[id number]] Order #: [id number] FUTURE Prescriptions as of 09/14/2020 - albuterol HFA (PROAIR HFA) 90 mcg/actuation inhaler Inhale 2 Puffs as instructed every 4 hours as needed for Wheezing/Shortness of Breath. - cefADROxil (DURICEF) 500 mg capsule Take 1 capsule by mouth twice daily. - Etodolac 500 mg tablet Take 1 tablet by mouth twice daily. - Nebulizer 1 Each every 4 hours as needed. NEBULIZER FOR HOME USE. DX: J45.41 - albuterol (PROVENTIL) 2.5 mg /3 mL (0.083 %) nebulizer solution Use 3 mL via nebulizer every 4 hours as needed for Wheezing/Shortness of Breath. Use over 5-15minutes. - THERAPEUTIC MULTIVITAMIN TAB Take one(1) tablet daily. 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] 03/17/2017 Asthmatic bronchitis [J45.909] 12/04/2017 Primary localized osteoarthrosis of left hand [*06/06/2018 Primary osteoarthritis of first carpometacarpal*07/17/2018 Encounter Status:Closed by BA PRODUSER on 09/14/20 [facility] Evaluation note Note Date & Type Note Facility Evaluation note Diagnosis Onset Date Pelvic varices acute Chronic pelvic pain in female chronic [facility] Work Phone: Evaluation note Note Date & Type Note Facility Evaluation note Diagnosis Onset Date Dyspnea on exertion acute Palpitations acute Vertigo acute [facility] Work Phone: Evaluation note Note Date & Type Note Facility Evaluation note Diagnosis Onset Date Elevated blood pressure read ing without diagnosis of hypertension acute Mitral valve insufficiency a cute Palpitations acute Tricuspid insufficiency acut e [facility] Work Phone: Evaluation note Note Date & Type Note Facility Evaluation note Diagnosis Onset Date Mitral valve insufficiency c hronic Palpitations chronic [facility] Work Phone: Evaluation note Note Date & Type Note Facility Evaluation note No assessment information availa ble [facility] Work Phone: Reason for referral (narrative) Note Date & Type Note Facility Reason for referral (narrative) No reason for referral information available [facility] Work Phone: Summary Purpose Family History No Family History Records Found Relationship Condition Age at Onset Recorded Date/T cory father Cerebrovascular accident (CVA) Unknown Diabetes mellitus Unknown Hypertension Unknown Relationship Condition Age at Onset Recorded Date/T cory father Cerebrovascular accident (CVA) Unknown Diabetes mellitus Unknown Hypertension Unknown brother Coronary artery disease Unknown Presence of stent in coronary artery Unkn own Advance Directives No Advanced Directives Records Found Advance Directive Response Recorded Date/ Time Living Will No May 17, 2021 11:18pm Power of Supervisor [employer]ing [employer] No May 17 11:18pm Advance Directive Response Recorded Date/ Time Living Will No May 17, 2021 10:18pm Power of Supervisor [employer]ing [employer] No May 17 10:18pm Chief Complaint and Reason for Visit Chief Complaint [email or web address] VEI N ON OVARY SCREENING PELVIC VARICES DIZZINESS Reason for Visit Pelvic varices Chronic pelvic pain in female Chief Complaint PELVIC VARICES DIZZINESS Amb Documentation POSSIBLE POTS/REF. MIEDEL VESTIBULAR. RX HERE Reason for Visit Dyspnea on exertion Palpitations Vertigo Chief Complaint Amb Documentation POSSIBLE POTS/REF. MIEDEL VESTIBULAR. RX HERE DYSPNEA/SOB DYSPNEA/SOB Reason for Visit Dyspnea on exertion Palpitations Vertigo Chief Complaint 6 WK FU Palpitations Reason for Visit Elevated blood press ure reading without diagnosis of hypertension Mitral valve insufficiency Palpitations Tricuspid insufficiency Chief Complaint MURMUR 8 MO F/U Reason for Visit Mitral valve insuffi ciency Palpitations Chief Complaint Admit Date SCREENING November 25, 2024 2: 13pm Additional Source Comments INFORMATION SOURCE (unrecogn ized section and content) DATE CREATED AUTHOR 08/22/2017 [facility] DATE CREATED AUTHOR AUTHOR'S ORGANIZ ATION 08/22/2017 [facility] DATE CREATED AUTHOR AUTHOR'S ORGANIZ ATION 09/13/2018 [facility] DATE CREATED AUTHOR AUTHOR'S ORGANIZ ATION 03/25/2021 [facility] DATE CREATED AUTHOR AUTHOR'S ORGANIZ ATION 12/24/2024 [facility] Goals (unrecognized section and content) Goals may be documented in a n alternate sectionGoals may be documented in an alternate sectionGoals may be documented in an alternate sectionGoals may be documented in an alternate sectionGoals may be documented in an alternate sectionGoals may be documented in an alternate sectionGoals may be documented in an alternate section Care Teams (unrecognized sec tion and content) Team Status: Active Member Role Status Dates Dr. Arlen Pteit DO Family Provider Active Dr. Kesha Phillips MD Primary Care Provider Active Team Status: Inactive Member Role Status Dates Dr. Kesha Phillips MD Primary Care Provider, Referrin g Provider Active Mathieu Mclain AIRLINE SECURITY REPRESENTATIVE, AIRLINE SECURITY REPRESENTATIVE-C Attending Provider Active Team Status: Active Member Role Status Dates Dr. Kesha Phillips MD Primary Care Provider Active Dr. Billy Ray MD Attending Provider Active Team Status: Inactive Member Role Status Dates Dr. Kesha Phillips MD Primary Care Provider Active Belle Aaron PA, PA Attending Provider, Referr ing Provider Active Team Status: Active Member Role/Relationship Status Dates Dr. Kesha Phillips MD Primary care physician Active Team Status: Inactive Member Role/Relationship Status Dates Dr. Kesha Phillips MD Primary care physician Active Start: November 25, 2024 End: November 25, 2024 Dr. Kesha Phillips MD Attending physician Active Start: November 25, 2024 End: November 25, 2024 Dr. Kesha Phillips MD Referring Provider Active Start: November 25, 2024 End: November 25, 2024 FOR RECORDS PERTAINING TO PATIENTS WHO ARE OR HAVE BEEN ENROLLED IN A CHEMICAL DEPENDENCY/SUBSTANCEABUSE PROGRAM, SOME INFORMATION MAY BE OMITTED. This clinical summary was aggregated from multiple sources. Caution should be exercised in using it in the provision of clinical care. This summary normalizes information from multiple sources, and as a consequence, information in this document may materially change the coding, format and clinical context of patient data. In addition, data may be omitted in some cases. CLINICAL DECISIONS SHOULD BE BASED ON THE PRIMARY CLINICAL RECORDS. [facility] [employer] [facility]. provides no warranty or guarantee of the accuracy or completeness of information in this document.
== END | disposition home or self-care (01) ==
LOC: LAB 14:11
PROVIDERS: PCP Family Medicine; Referring Provider Internal Medicine Cardiovascular Disease; Visit Provider Internal Medicine Cardiovascular Disease
DX: I10 Essential (primary) hypertension (principal); I34.0 Nonrheumatic mitral (valve) insufficiency; R00.2 Palpitations
CPT/HCPCS: 36415; 80053; 84443